=== PATIENT | male | born 1940 | race Caucasian/White ===

== ENCOUNTER 2017-10-28 08:13 | Observation (INO) | payer MEDICARE, BC ==
[2017-10-28] MEDS ORDERED: HYDROmorphone 0.5 MG/0.5 ML SYRINGE IVPUSH ONE (08:42)
[2017-10-28] MEDS ORDERED: Ketorolac 15 MG/ML SDV IVPUSH ONE (08:42)
[2017-10-28] MEDS ORDERED: Sodium Chloride 0.9% 10 ML Syringe FLUSH PRN (08:42)
[2017-10-28] MEDS ORDERED: Cyclobenzaprine 10 MG Tab PO ONE (08:42)
--- NOTE | 2017-10-28 09:04 | EDM.PDOC ---
ED HPI GENERAL MEDICAL PROBLEM - General Chief Complaint: Back Pain or Injury Stated Complaint: BACK PAIN Time Seen by Provider: 10/28/17 08:20 Source of Information: Reports: Patient, Family History Limitations: Reports: No Limitations - History of Present Illness INITIAL COMMENTS - FREE TEXT/NARRATIVE: The patient presents with right sided low back pain. The patient has a history of low back pain, but for the past 1 to 2 weeks that pain has gotten worse. He has had 2 surgeries on his back and a recent ablation of the nerve. He did not hurt himself recently such as fall, lift something or twisting. He has no fever , chills, cough, chest pain, shortness of breath, abdominal pain, nausea or vomiting. He has no numbness or weakness. He is better laying down but when he stands up it hurts. The pain will go down his right leg at times. Onset: Gradual Duration: Week(s): (Years but worse the past couple of weeks) Location: Reports: Back Quality: Reports: Sharp Severity: Severe Improves with: Reports: Immobilization (and laying down) Worsens with: Reports: Movement (and standing) Associated Symptoms: Reports: No Other Symptoms Lower Back Pain Score (Numeric/FACES): 9 - Related Data Allergies Allergy/AdvReac Type Severity Reaction Status Date / Time No Known Allergies Allergy Verified 12/15/13 12:11 Home Meds: Home Meds Carbidopa/Levodopa [Carbidopa-Levo ER 50-200] 1 tab PO BEDTIME 10/28/17 [History ] Carbidopa/Levodopa [Carbidopa-Levodopa 25-250] 1 tab PO TID 10/28/17 [History] Hydrocodone/Acetaminophen [Hydrocodon-Acetaminophen 5-325] 1 - 2 tab PO Q8H PRN 10/28/17 [History] RX: Amantadine [Symmetrel] 100 mg PO BID 10/28/17 [History] RX: Lisinopril 2.5 mg PO DAILY 10/28/17 [History] RX: carBAMazepine [Carbamazepine ER] 100 mg PO BID 10/28/17 [History] RX: traMADol [Ultram] 50 mg PO Q6H PRN 10/28/17 [History] Rotigotine [Neupro .33 MG/Hr] 1 patch TOP DAILY 10/28/17 [History] carBAMazepine [Carbamazepine ER] 400 mg PO BID 10/28/17 [History] metFORMIN HCl [Metformin HCl] 1,000 mg PO BID 10/28/17 [History] Past Medical History HEENT History: Reports: Impaired Vision Other Genitourinary History: Right kidney mass that has been treated in past Musculoskeletal History: Reports: Other (See Below) Other Musculoskeletal History: 2 back surgeries Neurological History: Reports: Parkinson's Endocrine/Metabolic History: Reports: Diabetes, Type II 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 - Past Surgical History HEENT Surgical History: Reports: Cataract Surgery, Tonsillectomy GI Surgical History: Reports: Appendectomy Neurological Surgical History: Reports: Laminectomy Other Neurological Surgeries/Procedures: Ablation of nerves in back Social & Family History - Tobacco Use Smoking Status *Q: Former Smoker Used Tobacco, but Quit: Yes Month/Year Tobacco Last Used: quit 30 years ago - Caffeine Use Caffeine Use: Reports: Coffee - Recreational Drug Use Recreational Drug Use: No ED ROS GENERAL - Review of Systems Review Of Systems: See Below Constitutional: Reports: No Symptoms HEENT: Reports: No Symptoms Respiratory: Reports: No Symptoms Cardiovascular: Reports: No Symptoms Endocrine: Reports: No Symptoms GI/Abdominal: Reports: No Symptoms : Reports: No Symptoms Musculoskeletal: Reports: Back Pain ED EXAM,LOWER BACK PAIN/INJURY - Physical Exam Exam: See Below Exam Limited By: No Limitations General Appearance: Alert, No Apparent Distress Ears: Normal External Exam Nose: Normal Inspection Head: Atraumatic, Normocephalic Neck: Normal Inspection Respiratory/Chest: No Respiratory Distress, Lungs Clear, Normal Breath Sounds Cardiovascular: Regular Rate, Rhythm, No Edema, No Murmur GI/Abdominal: Soft, Non-Tender, No Organomegaly, No Mass Back Exam: Other (Mild pain upon palpation to the right lower back) Extremities: Normal Inspection Neurological: Alert, No Motor/Sensory Deficits, Oriented x 3 Course - Vital Signs Last Recorded V/S: Last Vital Signs Temp 97.4 F 10/28/17 08:26 Pulse 75 10/28/17 08:26 Resp 14 10/28/17 08:26 BP 157/69 H 10/28/17 08:26 Pulse Ox 99 10/28/17 08:26 - Orders/Labs/Meds Orders: Active Orders 24 hr Category Date Time Status Patient Status [ADT] Routine ADT 10/28/17 12:38 Active Peripheral IV Care [RC] . DIRECTED Care 10/28/17 08:42 Active Sodium Chloride 0.9% [Saline Flush] Med 10/28/17 08:42 Active 10 ml FLUSH ASDIRECTED PRN Peripheral IV Insertion Adult [OM.PC] Routine Oth 10/28/17 08:42 Ordered Medication Orders Sodium Chloride (Saline Flush) 10 ml FLUSH ASDIRECTED PRN PRN Reason: Keep Vein Open Last Admin: 10/28/17 11:22 Dose: 10 ml Labs: Laboratory Tests 10/28/17 10/28/17 10/28/17 Range/Units 09:00 09:21 09:26 WBC 4.43 (4.23-9.07) K/mm3 RBC 3.68 L (4.63-6.08) M/mm3 Hgb 12.2 L (13.7-17.5) gm/L Hct 37.2 L (40.1-51.0) % MCV 101.1 H (79.0-92.2) fl MCH 33.2 H (25.7-32.2) pg MCHC 32.8 (32.2-35.5) g/dl RDW Std Deviation 46.5 H (35.1-43.9) fL Plt Count 133 L (163-337) K/mm3 MPV 10.7 (9.4-12.3) fl Neut % (Auto) 68.8 H (34.0-67.9) % Lymph % (Auto) 19.0 L (21.8-53.1) % [place] % (Auto) 7.0 (5.3-12.2) % Eos % (Auto) 4.3 (0.8-7.0) Baso % (Auto) 0.2 (0.1-1.2) % Neut # (Auto) 3.05 (1.78-5.38) K/mm3 Lymph # (Auto) 0.84 L (1.32-3.57) K/mm3 [place] # (Auto) 0.31 (0.30-0.82) K/mm3 Eos # (Auto) 0.19 (0.04-0.54) K/mm3 Baso # (Auto) 0.01 (0.01-0.08) K/mm3 ESR 16 H (0-15) mm/hr Sodium 137 (136-145) mEq/L Potassium 4.2 (3.5-5.1) mEq/L Chloride 103 (98-107) mEq/L Carbon Dioxide 24 (21-32) mEq/L Anion Gap 14.2 (5-15) BUN 24 H (7-18) mg/dL Creatinine 1.4 H (0.7-1.3) mg/dL Est Cr Clr Drug Dosing 48.56 mL/min Estimated GFR (MDRD) 49 (>60) mL/min BUN/Creatinine Ratio 17.1 (14-18) Glucose 159 H (83-115) mg/dL Calcium 8.4 L (8.5-10.1) mg/dL Total Bilirubin 0.3 (0.2-1.0) mg/dL AST 14 L (15-37) U/L ALT 10 L (16-63) U/L Alkaline Phosphatase 84 (46-116) U/L C-Reactive Protein < 0.2 (<1.0) mg/dL Total Protein 6.4 (6.4-8.2) g/dl Albumin 3.4 (3.4-5.0) g/dl Globulin 3.0 gm/dL Albumin/Globulin Ratio 1.1 (1-2) Meds: Medications Generic Name Dose Route Start Last Admin Trade Name Freq PRN Reason Stop Dose Admin Sodium Chloride 10 ml 10/28/17 08:42 10/28/17 11:22 Saline Flush FLUSH 10 ml ASDIRECTED PRN Administration Keep Vein Open Discontinued Medications Generic Name Dose Route Start Last Admin Trade Name Fresridhar PRN Reason Stop Dose Admin Cyclobenzaprine HCl 10 mg 10/28/17 08:42 10/28/17 09:10 Flexeril PO 10/28/17 08:43 10 mg ONETIME ONE Administration Fentanyl 50 mcg 10/28/17 11:15 10/28/17 11:30 Sublimaze IVPUSH 10/28/17 11:16 50 mcg ONETIME ONE Administration Hydromorphone HCl 0.5 mg 10/28/17 08:42 10/28/17 09:05 Dilaudid IVPUSH 10/28/17 08:43 0.5 mg ONETIME ONE Administration Ketorolac Tromethamine 15 mg 10/28/17 08:42 10/28/17 09:07 Toradol IVPUSH 04/30/18 08:43 15 mg ONETIME ONE Administration - Re-Assessments/Exams Free Text/Narrative Re-Assessment/Exam: 10/28/17 09:03 I ordered an IV saline lock, toradol 15mg IV, dilaudid 0.5mg IV, flexeril 10mg by mouth, and labs. 10/28/17 12:56 His CBC looks good. His creatinine is elevated at 1.4. His glucose is elevated at 159. His calcium is elevated at 8.4. His CRP is normal. He still has pain so I ordered fentanyl 100mcg IV. He still has pain laying in bed but that is better. My nurse got him up to walk and he still had severe pain. I do not feel I can send him home like this. I called Dr Quesada and he agreed to the admission but it will be an observation admission. Departure - Departure Time of Disposition: 13:00 Disposition: Refer to Observation Condition: Fair Clinical Impression: Acute exacerbation of chronic low back pain - Discharge Information Referrals: Waqas Bolton MD [Primary Care Provider] - Forms: ED Department Discharge - My Orders Last 24 Hours: My Active Orders 10/28/17 08:42 Peripheral IV Care [RC] . DIRECTED Sodium Chloride 0.9% [Saline Flush] 10 ml FLUSH ASDIRECTED PRN Peripheral IV Insertion Adult [OM.PC] Routine 10/28/17 12:38 Patient Status [ADT] Routine - Assessment/Plan Last 24 Hours: My Active Orders 10/28/17 08:42 Peripheral IV Care [RC] . DIRECTED Sodium Chloride 0.9% [Saline Flush] 10 ml FLUSH ASDIRECTED PRN Peripheral IV Insertion Adult [OM.PC] Routine 10/28/17 12:38 Patient Status [ADT] Routine
[2017-10-28] MEDS ORDERED: fentaNYL 100 MCG/2 ML SDV IVPUSH ONE (11:15)
--- NOTE | 2017-10-28 13:19 | PCM.HP ---
H&P History of Present Illness - General Date of Service: 10/28/17 Admit Problem/Dx: Admission Diagnosis/Problem Admission Diagnosis/Problem Low back pain Source of Information: Patient, Old Records, Provider, RN, RN Notes Reviewed, Significant Other History Limitations: Reports: No Limitations - History of Present Illness Initial Comments - Free Text/Narative: Artur Mccormack is a 76 yo male who presents to our ED today (10/28/17) with right- sided lower back pain which has been getting worse over the past 1-2 weeks. He does have a history of chronic lower back pain. He's had 2 surgeries on his back and recent ablation of the nerve. Denies any recent falls or injury while lifting, twisting, etc. Recent fever, chills, cough, chest pain, shortness of breath, abdominal pain, nausea, vomiting. Denies any numbness, tingling, or weakness. Pain is improved with lying down but worsens when he stands up. The patient will occasionally radiate down his right leg. In the ED temp was 97.4. Pulse 75. Respirations 14. Blood pressure 157/69. Pulse ox 99%. Labs were obtained: 30 mL normal at 4.43. Hemoglobin low at 12.2. Hematocrit low at 37.2. He is macrocytic. Pulses are low 133,000. Neutrophils are very slightly elevated at 68.8%. ESR is slightly elevated at 16. Sodiums on the low side of good at 137. Potassium 4.2. Chloride 103. Carbon dioxide 24. Anion gap is 14.2. BUN is 24. Creatinine 1.4. EGFR is 49. Glucose is high at 159. Calcium slightly low at 8.4. Total bilirubin 0.3. AST is 14, ALT 10, alk phosphatase 84. CRP is less than 0.2. Total protein 6.4. Albumin 3.4. He is given Flexeril, fentanyl, Dilaudid, and Toradol for pain. Nursing attempted ambulation in the ED and patient still had severe pain. The decision was made to admit the patient. 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 He is a former smoker. He subsequently admitted to the medical floor under observation status. He is a full code. His PCP is Dr. Bolton at [facility]. Lower Back Pain Score (Numeric/FACES): 5 - Related Data Allergies/Adverse Reactions: Allergies Allergy/AdvReac Type Severity Reaction Status Date / Time No Known Allergies Allergy Verified 10/28/17 14:12 Home Medications: Home Meds Amantadine [Symmetrel] 100 mg PO BID 10/28/17 [History] Carbidopa/Levodopa [Carbidopa-Levo ER 50-200] 1 tab PO BEDTIME 10/28/17 [History ] Carbidopa/Levodopa [Carbidopa-Levodopa 25-250] 1 tab PO TID 10/28/17 [History] Hydrocodone/Acetaminophen [Hydrocodon-Acetaminophen 5-325] 1 - 2 tab PO Q8H PRN 10/28/17 [History] Lisinopril 2.5 mg PO DAILY 10/28/17 [History] Rotigotine [Neupro .33 MG/Hr] 1 patch TOP DAILY 10/28/17 [History] carBAMazepine [Carbamazepine ER] 100 mg PO BID 10/28/17 [History] carBAMazepine [Carbamazepine ER] 400 mg PO BID 10/28/17 [History] metFORMIN HCl [Metformin HCl] 1,000 mg PO BID 10/28/17 [History] traMADol [Ultram] 50 mg PO Q6H PRN 10/28/17 [History] Past Medical History HEENT History: Reports: Impaired Vision Other Genitourinary History: Right kidney mass that has been treated in past Musculoskeletal History: Reports: Other (See Below) Other Musculoskeletal History: 2 back surgeries Neurological History: Reports: Parkinson's Endocrine/Metabolic History: Reports: Diabetes, Type II 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 Denies: Fever, Chills, Malaise, Weakness, Fatigue HEENT: Reports: No Symptoms. Denies: Ear Pain, Eye Pain, Headaches, Sore Throat Pulmonary: Reports: No Symptoms. Denies: Shortness of Breath, Wheezing, Pleuritic Chest Pain, Cough, Sputum Cardiovascular: Reports: No Symptoms. Denies: Chest Pain, Palpitations, Dyspnea on Exertion, Edema, Syncope Gastrointestinal: Reports: No Symptoms. Denies: Abdominal Pain, Constipation, Diarrhea, Nausea, Vomiting Genitourinary: Reports: No Symptoms. Denies: Dysuria, Frequency, Burning, Pain , Urgency Musculoskeletal: Reports: Back Pain (chronic ), Other (pain in right buttocks ) . Denies: Neck Pain, Shoulder Pain, Arm Pain, Hand Pain, Leg Pain, Foot Pain, Joint Pain, Joint Swelling, Muscle Stiffness Skin: Reports: No Symptoms Psychiatric: Reports: No Symptoms Neurological: Reports: No Symptoms Hematologic/Lymphatic: Reports: No Symptoms Immunologic: Reports: No Symptoms Exam - Exam Exam: See Below - Vital Signs Vital Signs: Last Vital Signs Temp 97.4 F 10/28/17 08:26 Pulse 75 10/28/17 08:26 Resp 14 10/28/17 08:26 BP 157/69 H 10/28/17 08:26 Pulse Ox 99 10/28/17 08:26 Weight: 190 lb - Exam General: Alert, Oriented, Cooperative. No: Mild Distress HEENT: PERRLA, Hearing Intact, Mucosa Moist & [place], Nares Patent, Normal Nasal Septum, Posterior Pharynx Clear, Conjunctiva Clear, EOMI, EACs Clear, TMs Clear Neck: Supple, Trachea Midline. No: JVD Lungs: Clear to Auscultation, Normal Respiratory Effort Cardiovascular: Regular Rate, Regular Rhythm GI/Abdominal Exam: Normal Bowel Sounds, Soft, Non-Tender, No Organomegaly, No Distention, No Abnormal Bruit, No Mass, Pelvis Stable (Male) Exam: Deferred Rectal (Males) Exam: Deferred Back Exam: Normal Inspection, Decreased Range of Motion, Paraspinal Tenderness ( right lower back ). No: Vertebral Tenderness Extremities: Normal Inspection, Normal Range of Motion, Non-Tender, No Pedal Edema, Normal Capillary Refill Peripheral Pulses: 2+: Radial (L), Radial (R), Posterior Tibial (L), Posterior Tibial (R), Dorsalis Pedis (L), Dorsalis Pedis (R) Skin: Warm, Dry, Intact Neurological: Cranial Nerves Intact (grossly ), Strength Equal Bilateral, Normal Speech, Normal Tone, Sensation Intact, Abnormal Gait. No: Focal Deficit Neuro Extensive - Mental Status: Alert, Oriented x3, Normal Mood/Affect, Normal Cognition, Memory Intact Psychiatric: Alert, Normal Affect, Normal Mood - Patient Data Lab Results Last 24 hrs: Laboratory Results - last 24 hr 10/28/17 10/28/17 10/28/17 Range/Units 09:00 09:21 09:26 WBC 4.43 (4.23-9.07) K/mm3 RBC 3.68 L (4.63-6.08) M/mm3 Hgb 12.2 L (13.7-17.5) gm/L Hct 37.2 L (40.1-51.0) % MCV 101.1 H (79.0-92.2) fl MCH 33.2 H (25.7-32.2) pg MCHC 32.8 (32.2-35.5) g/dl RDW Std Deviation 46.5 H (35.1-43.9) fL Plt Count 133 L (163-337) K/mm3 MPV 10.7 (9.4-12.3) fl Neut % (Auto) 68.8 H (34.0-67.9) % Lymph % (Auto) 19.0 L (21.8-53.1) % [place] % (Auto) 7.0 (5.3-12.2) % Eos % (Auto) 4.3 (0.8-7.0) Baso % (Auto) 0.2 (0.1-1.2) % Neut # (Auto) 3.05 (1.78-5.38) K/mm3 Lymph # (Auto) 0.84 L (1.32-3.57) K/mm3 [place] # (Auto) 0.31 (0.30-0.82) K/mm3 Eos # (Auto) 0.19 (0.04-0.54) K/mm3 Baso # (Auto) 0.01 (0.01-0.08) K/mm3 ESR 16 H (0-15) mm/hr Sodium 137 (136-145) mEq/L Potassium 4.2 (3.5-5.1) mEq/L Chloride 103 (98-107) mEq/L Carbon Dioxide 24 (21-32) mEq/L Anion Gap 14.2 (5-15) BUN 24 H (7-18) mg/dL Creatinine 1.4 H (0.7-1.3) mg/dL Est Cr Clr Drug Dosing 48.56 mL/min Estimated GFR (MDRD) 49 (>60) mL/min BUN/Creatinine Ratio 17.1 (14-18) Glucose 159 H (83-115) mg/dL Calcium 8.4 L (8.5-10.1) mg/dL Total Bilirubin 0.3 (0.2-1.0) mg/dL AST 14 L (15-37) U/L ALT 10 L (16-63) U/L Alkaline Phosphatase 84 (46-116) U/L C-Reactive Protein < 0.2 (<1.0) mg/dL Total Protein 6.4 (6.4-8.2) g/dl Albumin 3.4 (3.4-5.0) g/dl Globulin 3.0 gm/dL Albumin/Globulin Ratio 1.1 (1-2) Result Diagrams: 10/28/17 09:00 10/28/17 09:26 - Problem List (1) Acute exacerbation of chronic low back pain SNOMED Code(s): 986691581 ICD Code: M54.5 - LOW BACK PAIN; G89.29 - OTHER CHRONIC PAIN Status: Acute Priority: High Current Visit: Yes (2) Type II diabetes mellitus SNOMED Code(s): 31727276 ICD Code: E11.9 - TYPE 2 DIABETES MELLITUS WITHOUT COMPLICATIONS Status: Chronic Priority: Medium Current Visit: Yes Qualifiers: Diabetes mellitus oysterman insulin use: without senior care use Diabetes mellitus complication status: with unspecified complications Qualified Code(s) : E11.8 - Type 2 diabetes mellitus with unspecified complications (3) History of back surgery SNOMED Code(s): 217511210 ICD Code: Z98.890 - OTHER SPECIFIED POSTPROCEDURAL STATES Status: Chronic Priority: Medium Current Visit: No (4) History of laminectomy SNOMED Code(s): 941016868, 746737290 ICD Code: Z98.890 - OTHER SPECIFIED POSTPROCEDURAL STATES Status: Chronic Priority: Medium Current Visit: No (5) Parkinson disease SNOMED Code(s): 22170754 ICD Code: G20 - PARKINSON'S DISEASE Status: Chronic Priority: Medium Current Visit: Yes (6) History of squamous cell carcinoma SNOMED Code(s): 59330604498626 ICD Code: Z85.89 - PERSONAL HISTORY OF MALIGNANT NEOPLASM OF ORGANS AND SYSTEMS Status: Chronic Priority: Medium Current Visit: No (7) Acute kidney injury SNOMED Code(s): 76946632 ICD Code: N17.9 - ACUTE KIDNEY FAILURE, UNSPECIFIED Status: Acute Priority: High Current Visit: Yes Problem List Initiated/Reviewed/Updated: Yes Orders Last 24hrs: Active Orders 24 hr Category Date Time Status Patient Status [ADT] Routine ADT 10/28/17 12:38 Active Peripheral IV Care [RC] . DIRECTED Care 10/28/17 08:42 Active Sodium Chloride 0.9% [Saline Flush] Med 10/28/17 08:42 Active 10 ml FLUSH ASDIRECTED PRN Peripheral IV Insertion Adult [OM.PC] Routine Oth 10/28/17 08:42 Ordered Medication Orders Sodium Chloride (Saline Flush) 10 ml FLUSH ASDIRECTED PRN PRN Reason: Keep Vein Open Last Admin: 10/28/17 11:22 Dose: 10 ml Assessment/Plan Comment:: I/P: Acute: Back pain -Acute on chronic -Reports location in right buttocks, constant and sharp; does not radiate -History of 2 back surgeries, nerve ablation in back, laminectomy -Worse when walking/standing - worried he may fall -Denies any numbness/tingling or extremity weakness -No incontinence of urine or bowel -No neurological deficit, equal strength bilaterally, no pain with plantar flexion or extension -CRP <0.2, ESR 16 -Pain medications as ordered -PT/OT -Consider lumbar MRI Acute kidney injury -BUN 24, Creatinine 1.4, eGFR 49 -Baseline from prior charts is WNL -Was given Toradol in ED -IV fluids as ordered -Avoid nephrotoxic medications -Monitor Chronic: Impaired vision Hx/o right kidney mass which was treated Parkinson's disease - continue home meds Type II DM 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 Bolton
[2017-10-28] MEDS ORDERED: Pneumococcal Polyvalent-23 Vaccine 0.5 ML SDV IM ONE (15:00)
[2017-10-28] MEDS ORDERED: Polyethylene Glycol 3350 Powder 17 GM Packet PO PRN (15:32)
[2017-10-28] MEDS ORDERED: Docusate Sodium 100 MG Cap PO PRN (15:32)
[2017-10-28] MEDS ORDERED: Bisacodyl 5 MG Tab PO PRN (15:32)
[2017-10-28] MEDS ORDERED: Ondansetron 4 MG Tab.DIS PO PRN (15:32)
[2017-10-28] MEDS ORDERED: HYDROmorphone 0.5 MG/0.5 ML SYRINGE IVPUSH PRN (15:32)
[2017-10-28] MEDS ORDERED: Ondansetron 4 MG/2 ML SDV IV PRN (15:32)
[2017-10-28] MEDS ORDERED: Acetaminophen 325 MG Tab PO PRN (15:32)
[2017-10-28] MEDS ORDERED: Albuterol/Ipratropium 3.0-0.5 MG/3 ML Neb Soln NEB PRN (15:32)
[2017-10-28] MEDS ORDERED: hydrALAZINE 20 MG/ML SDV IVPUSH PRN (15:37)
[2017-10-28] MEDS ORDERED: Metoprolol Tartrate 5 MG/5 ML SDV IVPUSH PRN (15:37)
[2017-10-28] MEDS ORDERED: Sodium Chloride 0.9% 1,000 ML IV SCH (15:45)
[2017-10-28] MEDS ORDERED: 50% Dextrose in Water 50 ML Syringe IVPUSH PRN (16:10)
[2017-10-28] MEDS: Acetaminophen/oxyCODONE 325-5 MG Tab PO PRN ×2 (16:48→22:56)
[2017-10-28] MEDS: Insulin Aspart 100 Units/ML 3 ML Pen SUBCUT SCH ×2 (18:37→22:06)
[2017-10-28] MEDS: CARBAMAZEPINE 100 MG PO SCH (18:42)
[2017-10-28] MEDS: AMANTADINE 100 MG PO SCH (18:42)
[2017-10-28] MEDS: CARBAMAZEPINE 400 MG PO SCH (18:43)
[2017-10-28] MEDS: CARBIDOPA PO SCH (18:44)
[2017-10-28] MEDS: [UNRECOGNIZED DRUG - OTHER] PO SCH (18:44)
[2017-10-28] MEDS: METFORMIN 1000 MG PO SCH (18:45)
[2017-10-28] MEDS ORDERED: traMADol 50 MG Tab PO PRN (19:00)
[2017-10-28] MEDS ORDERED: [UNRECOGNIZED DRUG - OTHER] PO SCH (21:00)
[2017-10-28] MEDS ORDERED: CARBIDOPA PO SCH (21:00)
[2017-10-29] MEDS: Acetaminophen/oxyCODONE 325-5 MG Tab PO PRN (05:48)
[2017-10-29] MEDS: Insulin Aspart 100 Units/ML 3 ML Pen SUBCUT SCH ×2 (06:30→12:19)
[2017-10-29] MEDS ORDERED: Magnesium Oxide 400 MG Tab PO ONE (09:00)
[2017-10-29] MEDS ORDERED: Non-Formulary Medication 1 Each (Lisinopril [Lisinopril] 2.5 MG) PO SCH (09:00)
[2017-10-29] MEDS ORDERED: ROTIGOTINE TOP SCH (09:00)
--- NOTE | 2017-10-29 09:17 | MR ---
Addendum: Not mentioned on original report is a mass within the upper right kidney is partially seen. This is identified on prior CT abdomen and pelvis exam of 02/21/15. This mass appears to have increased in size by about 1 cm. --- Addendum1 above dictated on [10/29/2017 09:49] by [Barrett Whitman Hilton J.] --- --- Addendum1 above signed on [10/29/2017 10:15] by [Barrett Whitman Hilton J.] --- --- Original report below dictated on [10/29/2017 09:08] by [Barrett Whitman Hilton J.] --- --- Original report below signed on [10/29/2017 09:14] by [Barrett Whitman Hilton J.] --- MRI lumbar spine Technique: T1-weighted axial images were obtained from above the L1-L2 disc through the L5-S1 disc. T2-weighted axial images were obtained from above the L2-L3 disc inferiorly through the L5-S1 disc. T1, T2 and fat suppressed inversion recovery sagittal images were obtained. Comparison: Previous lumbar spine exam of 05/05/15. Findings: T12-L1: Slight posterior disc bulging is seen. Small Schmorl's node deformity is seen. No central canal stenosis or neural foraminal stenosis is seen. L1-L2: Slight circumferential disc bulge is seen. Posterior disc maintains a concave margin. Minimal degenerative apophyseal change is seen. No central canal stenosis is seen. Neural foramina are patent where the nerve roots exit. L2-L3: Circumferential disc bulge is seen. Moderate degenerative apophyseal change is seen with thickening of the ligamentum flavum. Findings cause moderate to severe central canal stenosis. This is slightly more prominent than on previous exam. Disc bulging is seen into both inferior neural foramina with disc bulging appearing to touch the left nerve root outside the neural foramina. This finding is fairly stable from previous exam. L3-L4: Circumferential disc bulge is seen. Mild degenerative apophyseal change is noted. Previous mini-laminectomy is noted on the left side. Mild to moderate central canal stenosis is seen. This is slightly more prominent than on previous exam. Neural foramina are felt to be patent where the nerve roots exit. L4-L5: Posterior laminectomy is noted. Slight circumferential disc bulge is seen. No central canal stenosis is noted. Neural foramina are patent where the nerve roots exit. L5-S1: Very slight diffuse posterior disc bulge is seen. Minimal central canal stenosis is noted. Neural foramina are patent where the nerve roots exit. Diffuse degenerative dehydration change noted within the discs. Conus medullaris and cauda equina show no abnormal signal or mass. Impression: 1. Diffuse degenerative change. Most prominent findings are central canal stenosis at L2-L3, L3-L4 and L5-S1. Central canal stenosis has slightly progressed from previous exam. 2. Less prominent degenerative change as noted above which appears to be fairly stable. Diagnostic code #3 --- Addendum1 signed ---
[2017-10-29] MEDS: CARBAMAZEPINE 100 MG PO SCH (09:38)
[2017-10-29] MEDS: CARBIDOPA PO SCH ×2 (09:38→12:31)
[2017-10-29] MEDS: AMANTADINE 100 MG PO SCH (09:38)
[2017-10-29] MEDS: [UNRECOGNIZED DRUG - OTHER] PO SCH ×2 (09:38→12:31)
[2017-10-29] MEDS: METFORMIN 1000 MG PO SCH (09:40)
[2017-10-29] MEDS: CARBAMAZEPINE 400 MG PO SCH (09:40)
--- NOTE | 2017-10-29 12:33 | PCM.DCSUM1 ---
Discharge Summary - Hospital Course HPI Initial Comments: Artur Mccormack is a 76 yo male who presents to our ED today (10/28/17) with right- sided lower back pain which has been getting worse over the past 1-2 weeks. He does have a history of chronic lower back pain. He's had 2 surgeries on his back and recent ablation of the nerve. Denies any recent falls or injury while lifting, twisting, etc. Recent fever, chills, cough, chest pain, shortness of breath, abdominal pain, nausea, vomiting. Denies any numbness, tingling, or weakness. Pain is improved with lying down but worsens when he stands up. The patient will occasionally radiate down his right leg. In the ED temp was 97.4. Pulse 75. Respirations 14. Blood pressure 157/69. Pulse ox 99%. Labs were obtained: 30 mL normal at 4.43. Hemoglobin low at 12.2. Hematocrit low at 37.2. He is macrocytic. Pulses are low 133,000. Neutrophils are very slightly elevated at 68.8%. ESR is slightly elevated at 16. Sodiums on the low side of good at 137. Potassium 4.2. Chloride 103. Carbon dioxide 24. Anion gap is 14.2. BUN is 24. Creatinine 1.4. EGFR is 49. Glucose is high at 159. Calcium slightly low at 8.4. Total bilirubin 0.3. AST is 14, ALT 10, alk phosphatase 84. CRP is less than 0.2. Total protein 6.4. Albumin 3.4. He is given Flexeril, fentanyl, Dilaudid, and Toradol for pain. Nursing attempted ambulation in the ED and patient still had severe pain. The decision was made to admit the patient. 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 He is a former smoker. He subsequently admitted to the medical floor under observation status. He is a full code. His PCP is Dr. Bolton at [facility]. - Discharge Data Discharge Date: 10/29/17 (Admit: 10/28/17) Discharge Disposition: Home, Self-Care 01 Condition: Good - Discharge Diagnosis/Problem(s) (1) Acute exacerbation of chronic low back pain SNOMED Code(s): 639805653 ICD Code: M54.5 - LOW BACK PAIN; G89.29 - OTHER CHRONIC PAIN Status: Acute Priority: High Current Visit: Yes (2) Type II diabetes mellitus SNOMED Code(s): 65409114 ICD Code: E11.9 - TYPE 2 DIABETES MELLITUS WITHOUT COMPLICATIONS Status: Chronic Priority: Medium Current Visit: Yes Qualifiers: Diabetes mellitus [facility] insulin use: without moth exterminator use Diabetes mellitus complication status: with unspecified complications Qualified Code(s) : E11.8 - Type 2 diabetes mellitus with unspecified complications (3) History of back surgery SNOMED Code(s): 286695955 ICD Code: Z98.890 - OTHER SPECIFIED POSTPROCEDURAL STATES Status: Chronic Priority: Medium Current Visit: No (4) History of laminectomy SNOMED Code(s): 095303218, 168395024 ICD Code: Z98.890 - OTHER SPECIFIED POSTPROCEDURAL STATES Status: Chronic Priority: Medium Current Visit: No (5) Parkinson disease SNOMED Code(s): 09771647 ICD Code: G20 - PARKINSON'S DISEASE Status: Chronic Priority: Medium Current Visit: Yes (6) History of squamous cell carcinoma SNOMED Code(s): 81958942760928 ICD Code: Z85.89 - PERSONAL HISTORY OF MALIGNANT NEOPLASM OF ORGANS AND SYSTEMS Status: Chronic Priority: Medium Current Visit: No (7) Acute kidney injury SNOMED Code(s): 97504470 ICD Code: N17.9 - ACUTE KIDNEY FAILURE, UNSPECIFIED Status: Acute Priority: High Current Visit: Yes (8) Kidney lesion, [place], right SNOMED Code(s): 59426444 ICD Code: N28.9 - DISORDER OF KIDNEY AND URETER, UNSPECIFIED Status: Acute Priority: Medium Current Visit: Yes - Patient Summary/Data Consults: Consultations 10/28/17 15:32 OT Evaluation and Treatment [CONS] Routine PT Evaluation and Treatment [CONS] Routine Labs Pending at D/C: None Recommended Follow-up Testing/Procedures: Recommend follow-up with PCP in 7-10 days, sooner if needed Recommend follow-up with urology at next available appointment due to increasing kidney lesion. We discussed Dr. Su and this is an excellent option as you have seen him in the past. Recommend follow-up with neurosurgery after discharge. We discussed Dr. Patel as you have seen him in the past and this is also an excellent option, Hospital Course: I/P: Acute: Back pain, improved -Acute on chronic -Reports location in right buttocks, constant and sharp; does not radiate -History of 2 back surgeries, nerve ablation in back, laminectomy -Worse when walking/standing - worried he may fall -Denies any numbness/tingling or extremity weakness -No incontinence of urine or bowel -No neurological deficit, equal strength bilaterally, no pain with plantar flexion or extension -CRP <0.2, ESR 16 -Pain medications as ordered -PT/OT -Lumbar MRI -Diffuse degenerative change. Most prominent findings are central canal stenosis at L2-L3, L3-L4, and L5-S1 -Central canal stenosis has slightly progressed from previous exam -Less prominent degenerative change as noted above which appears to be fairly stable -Right upper kidney mass - appears to increased in size by about 1cm from prior CT on 02/21/18 Acute kidney injury -BUN 24, Creatinine 1.4, eGFR 49 -Baseline from prior charts is WNL -Was given Toradol in ED -IV fluids as ordered -Avoid nephrotoxic medications -Encourage oral hydration -Monitor Incidental right kidney lesion -Identified on prior CT scan from 02/21/15 -Appears to have increased in size around 1cm -Recommend follow-up with urology - reports prior cryoablation of area. 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 Bolton Overall Artur improved while in our care. He weaned down his pain medications rapidly and will be discharged home on his usual dose of tramadol. Patients reports he is low on this so will give prescription to get him by until he sees his PCP. He has been working with PT/OT and they are recommending home PT/ OT. was not very receptive to this but was given information and order so they can follow-up if they decide it becomes necessary. His creatinine was slightly elevated. We gave 1L of fluid and encouraged oral hydration, which his reports is a problematic area as he could use more fluid intake at home. An MRI was obtained with results as above. See full report for all the details. A mass on his right kidney was noted to be 1cm larger than on prior CT from 02/21. Patients reports this was froze in [place] by Dr. Su. Recommend follow-up with this. reports Artur was to have a CT scan in the near future to re-check this lesion and she will get in contact with them about MRI results. Also recommending follow-up with Dr. Greene as he has had prior back surgery with him. He was instructed to follow-up with PCP within 7-10 days after discharge, sooner if need. He was also instructed not to drive or operate heavy machinery while on opioid medications. - Patient Instructions Diet: Diabetic Diet Activity: As Tolerated Driving: Do Not Drive Showering/Bathing: May Shower Notify Provider of: Fever, Increased Pain, Nausea and/or Vomiting - Discharge Plan Prescriptions/Med Rec: traMADol [Ultram] 50 mg PO Q6H PRN #20 tablet PRN Reason: Pain Home Medications: Home Meds Amantadine [Symmetrel] 100 mg PO BID 10/28/17 [History] Carbidopa/Levodopa [Carbidopa-Levo ER 50-200] 1 tab PO BEDTIME 10/28/17 [History ] Carbidopa/Levodopa [Carbidopa-Levodopa 25-250] 1 tab PO TID 10/28/17 [History] Hydrocodone/Acetaminophen [Hydrocodon-Acetaminophen 5-325] 1 - 2 tab PO Q8H PRN 10/28/17 [History] Lisinopril 2.5 mg PO DAILY 10/28/17 [History] Rotigotine [Neupro .33 MG/Hr] 1 patch TOP DAILY 10/28/17 [History] carBAMazepine [Carbamazepine ER] 100 mg PO BID 10/28/17 [History] carBAMazepine [Carbamazepine ER] 400 mg PO BID 10/28/17 [History] metFORMIN HCl [Metformin HCl] 1,000 mg PO BID 10/28/17 [History] traMADol [Ultram] 50 mg PO Q6H PRN #20 tablet 10/29/17 [Rx] Patient Handouts: Chronic Pain, Adult, What You Need to Know About Prescription Opioid Pain Medicine Referrals: Waqas Bolton MD [Primary Care Provider] - - Discharge Summary/Plan Comment DC Time >30 min.: Yes (45 mins ) - General Info Admission Dx/Problem (Free Text: Admission Diagnosis/Problem Admission Diagnosis/Problem Low back pain Subjective Update: In to see Artur. He is sitting on the edge of bed. He looks better and is not in too much pain. He reports improvement. He has been working with PT/OT. He would like to go home. His agrees. Functional Status: Reports: Pain Controlled, Tolerating Diet, Ambulating, Urinating. Denies: New Symptoms - Review of Systems General: Reports: No Symptoms. Denies: Fever, Weakness, Fatigue, Malaise HEENT: Reports: No Symptoms Pulmonary: Reports: No Symptoms. Denies: Shortness of Breath, Cough, Wheezing Cardiovascular: Reports: No Symptoms. Denies: Chest Pain, Palpitations, Lightheadedness Gastrointestinal: Reports: No Symptoms. Denies: Abdominal Pain, Constipation, Diarrhea, Nausea, Vomiting Genitourinary: Reports: No Symptoms Musculoskeletal: Reports: Back Pain (improved ). Denies: Neck Pain, Leg Pain, Foot Pain, Joint Pain, Joint Swelling Skin: Reports: No Symptoms Neurological: Reports: No Symptoms Psychiatric: Reports: No Symptoms - Patient Data Vitals - Most Recent: Last Vital Signs Temp 97.9 F 10/29/17 05:22 Pulse 58 L 10/29/17 05:22 Resp 18 10/29/17 05:22 BP 139/74 10/29/17 05:22 Pulse Ox 98 10/29/17 05:22 Weight - Most Recent: 187 lb 5 oz I&O - Last 24 hours: Intake & Output 10/28/17 10/29/17 10/29/17 22:59 06:59 14:59 Intake Total 1300 300 Output Total 1300 Balance 0 300 Lab Results - Last 24 hrs: Laboratory Results - last 24 hr 10/28/17 10/28/17 10/29/17 Range/Units 16:59 21:20 05:46 WBC 5.60 (4.23-9.07) K/mm3 RBC 3.68 L (4.63-6.08) M/mm3 Hgb 12.1 L (13.7-17.5) gm/L Hct 37.0 L (40.1-51.0) % MCV 100.5 H (79.0-92.2) fl MCH 32.9 H (25.7-32.2) pg MCHC 32.7 (32.2-35.5) g/dl RDW Std Deviation 45.5 H (35.1-43.9) fL Plt Count 156 L (163-337) K/mm3 MPV 10.5 (9.4-12.3) fl Neut % (Auto) 57.8 (34.0-67.9) % Lymph % (Auto) 27.3 (21.8-53.1) % [place] % (Auto) 9.1 (5.3-12.2) % Eos % (Auto) 5.0 (0.8-7.0) Baso % (Auto) 0.4 (0.1-1.2) % Neut # (Auto) 3.24 (1.78-5.38) K/mm3 Lymph # (Auto) 1.53 (1.32-3.57) K/mm3 [place] # (Auto) 0.51 (0.30-0.82) K/mm3 Eos # (Auto) 0.28 (0.04-0.54) K/mm3 Baso # (Auto) 0.02 (0.01-0.08) K/mm3 Sodium (136-145) mEq/L Potassium (3.5-5.1) mEq/L Chloride (98-107) mEq/L Carbon Dioxide (21-32) mEq/L Anion Gap (5-15) BUN (7-18) mg/dL Creatinine (0.7-1.3) mg/dL Est Cr Clr Drug Dosing mL/min Estimated GFR (MDRD) (>60) mL/min BUN/Creatinine Ratio (14-18) Glucose (83-115) mg/dL POC Glucose 173 H 112 H (83-110) mg/dL Calcium (8.5-10.1) mg/dL Magnesium (1.8-2.4) mg/dl C-Reactive Protein (<1.0) mg/dL 10/29/17 10/29/17 10/29/17 Range/Units 05:46 05:46 11:13 WBC (4.23-9.07) K/mm3 RBC (4.63-6.08) M/mm3 Hgb (13.7-17.5) gm/L Hct (40.1-51.0) % MCV (79.0-92.2) fl MCH (25.7-32.2) pg MCHC (32.2-35.5) g/dl RDW Std Deviation (35.1-43.9) fL Plt Count (163-337) K/mm3 MPV (9.4-12.3) fl Neut % (Auto) (34.0-67.9) % Lymph % (Auto) (21.8-53.1) % [place] % (Auto) (5.3-12.2) % Eos % (Auto) (0.8-7.0) Baso % (Auto) (0.1-1.2) % Neut # (Auto) (1.78-5.38) K/mm3 Lymph # (Auto) (1.32-3.57) K/mm3 [place] # (Auto) (0.30-0.82) K/mm3 Eos # (Auto) (0.04-0.54) K/mm3 Baso # (Auto) (0.01-0.08) K/mm3 Sodium 135 L (136-145) mEq/L Potassium 4.5 (3.5-5.1) mEq/L Chloride 103 (98-107) mEq/L Carbon Dioxide 25 (21-32) mEq/L Anion Gap 11.5 (5-15) BUN 21 H (7-18) mg/dL Creatinine 1.4 H (0.7-1.3) mg/dL Est Cr Clr Drug Dosing 48.56 mL/min Estimated GFR (MDRD) 49 (>60) mL/min BUN/Creatinine Ratio 15.0 (14-18) Glucose 90 (83-115) mg/dL POC Glucose 101 128 H (83-110) mg/dL Calcium 8.4 L (8.5-10.1) mg/dL Magnesium 1.7 L (1.8-2.4) mg/dl C-Reactive Protein < 0.2 (<1.0) mg/dL Med Orders - Current: Current Medications Acetaminophen (Tylenol) 650 mg PO Q4H PRN PRN Reason: Pain (Mild 1-3)/fever Last Admin: 10/28/17 16:48 Dose: 325 mg Albuterol/Ipratropium (Duoneb 3.0-0.5 Mg/3 Ml) 3 ml NEB Q4H PRN PRN Reason: Shortness Of Breath/wheezing Bisacodyl (Dulcolax) 5 mg PO DAILY PRN PRN Reason: Constipation Dextrose/Water (Dextrose 50% In Water) 50 ml IVPUSH ASDIRECTED PRN PRN Reason: hypoglycemia Docusate Sodium (Colace) 100 mg PO BID PRN PRN Reason: Constipation Hydralazine HCl (Apresoline) 10 mg IVPUSH Q6H PRN PRN Reason: Hypertension Insulin Aspart (Novolog) 0 unit SUBCUT QIDACANDBED [facility]; Protocol Last Admin: 10/29/17 12:19 Dose: Not Given Magnesium Sulfate (Pharmacy To Dose - Magnesium Replacement) 1 dose .XX ASDIRECTED [facility] Metoprolol Tartrate (Lopressor) 5 mg IVPUSH Q4H PRN PRN Reason: Tachycardia Non-Formulary Medication (Lisinopril [Lisinopril]) 2.5 mg PO DAILY [facility] Ondansetron HCl (Zofran Odt) 4 mg PO Q6H PRN PRN Reason: nausea, able to take PO Ondansetron HCl (Zofran) 4 mg IV Q6H PRN PRN Reason: Nausea/Vomiting Oxycodone/Acetaminophen (Percocet 325-5 Mg) 1 tab PO Q4H PRN PRN Reason: Pain (moderate 4-6) Last Admin: 10/29/17 05:48 Dose: 1 tab PtomAmantidine (100 Mg Cap) 0 each PO BID@0900,1700 [facility] Last Admin: 10/29/17 09:38 Dose: 1 each Ptom Carbamazepine Xr 100 Mg Tab 0 each PO BID@0900,1700 [facility] Last Admin: 10/29/17 09:38 Dose: 1 each Ptom Carbamazepine Xr 400 Mg Tab 0 each PO BID@0900,1700 [facility] Last Admin: 10/29/17 09:40 Dose: 1 each PtomCarbidopa/L- (Dopa Cr 50/200 Tab) 0 each PO BEDTIME [facility] Last Admin: 10/28/17 22:57 Dose: 1 each PtomCarbidopa/L- (Dopa 25/250 Tab) 0 each PO TID@0800,1200,1700 [facility] Last Admin: 10/29/17 12:31 Dose: Not Given PtomMetformin (1000 Mg Tab) 0 each PO BID@0900,1700 [facility] Last Admin: 10/29/17 09:40 Dose: 1 each Rotigotine [Neupro . (33 Mg/Hr] 1 Patch) 0 each TOP DAILY [facility] Last Admin: 10/29/17 09:41 Dose: 1 each Polyethylene Glycol (Miralax) 17 gm PO DAILY PRN PRN Reason: Constipation Potassium Chloride (Pharmacy To Dose - Potassium Replacement) 1 dose .XX ASDIRECTED [facility] Senna/Docusate Sodium (Senna Plus) 1 tab PO BID PRN PRN Reason: Constipation Sodium Chloride (Saline Flush) 10 ml FLUSH ASDIRECTED PRN PRN Reason: Keep Vein Open Last Admin: 10/28/17 11:22 Dose: 10 ml Tramadol HCl (Ultram) 50 mg PO Q6H PRN PRN Reason: PAIN Discontinued Medications Cyclobenzaprine HCl (Flexeril) 10 mg PO ONETIME ONE Stop: 10/28/17 08:43 Last Admin: 10/28/17 09:10 Dose: 10 mg Fentanyl (Sublimaze) 50 mcg IVPUSH ONETIME ONE Stop: 10/28/17 11:16 Last Admin: 10/28/17 11:30 Dose: 50 mcg Hydromorphone HCl (Dilaudid) 0.5 mg IVPUSH ONETIME ONE Stop: 10/28/17 08:43 Last Admin: 10/28/17 09:05 Dose: 0.5 mg Hydromorphone HCl (Dilaudid) 0.5 mg IVPUSH Q2H PRN PRN Reason: Pain (severe 7-10) Sodium Chloride (Normal Saline) 1,000 mls @ 75 mls/hr IV ASDIRECTED [facility] Stop: 10/29/17 05:04 Last Admin: 10/28/17 16:48 Dose: 75 mls/hr Ketorolac Tromethamine (Toradol) 15 mg IVPUSH ONETIME ONE Stop: 10/28/17 08:43 Last Admin: 10/28/17 09:07 Dose: 15 mg Magnesium Oxide (Magnesium Oxide) 800 mg PO ONETIME ONE Stop: 10/29/17 09:01 Last Admin: 10/29/17 09:34 Dose: 800 mg Pneumococcal Polyvalent Vaccine (Pneumovax 23) 0.5 ml IM .ONCE ONE Stop: 10/28/17 15:01 - Exam Quality Assessment: Reports: DVT Prophylaxis General: Reports: Alert, Oriented, Cooperative HEENT: Reports: Pupils Equal, Pupils Reactive, EOMI, Mucous Membr. Moist/[place] Neck: Reports: Supple, Trachea Midline, No JVD Lungs: Reports: Clear to Auscultation, Normal Respiratory Effort Cardiovascular: Reports: Regular Rate, Regular Rhythm GI/Abdominal Exam: Normal Bowel Sounds, Soft, Non-Tender, No Organomegaly, No Distention, No Abnormal Bruit, No Mass, Pelvis Stable (Male) Exam: Deferred Rectal (Males) Exam: Deferred Back Exam: Reports: Normal Inspection, Full Range of Motion, Paraspinal Tenderness Extremities: Normal Inspection, Normal Range of Motion, Non-Tender, No Pedal Edema, Normal Capillary Refill Skin: Reports: Warm, Dry, Intact Neurological: Reports: No New Focal Deficit Psy/Mental Status: Reports: Alert, Normal Affect, Normal Mood
== END 2017-10-29 13:55 | disposition home or self-care (01) ==
LOC: SUPCPDRO 08:13 → JD.ED 08:13 → JD.MS 12:38
PROVIDERS: ADMIT Internal Medicine; ATTEND Internal Medicine
DX: G89.29 Other chronic pain (principal); M54.5 Low back pain; E11.8 Type 2 diabetes mellitus with unspecified complications; G20 Parkinson's disease; N17.9 Acute kidney failure, unspecified; N28.9 Disorder of kidney and ureter, unspecified; Z98.890 Other specified postprocedural states; Z79.84 Long term (current) use of oral hypoglycemic drugs; Z79.899 Other long term (current) drug therapy; Z87.891 Personal history of nicotine dependence
CPT/HCPCS: 36415; 72148; 80048; 80053; 82962; 83735; 85025; 85652; 86140; 96374; 96375; 97161; 97165; 97530; 99285; A9270; J1170; J1815; J1885; J3010; J7040; J7050; 96361; 99217; 99218; 99284; G0378

== ENCOUNTER 2020-01-13 13:36 | Emergency (ER) | payer MEDICARE, BC ==
[2020-01-13] MEDS ORDERED: Ketorolac 60 MG/2 ML SDV IM ONE (13:59)
[2020-01-13] MEDS ORDERED: predniSONE 20 MG Tab PO ONE (14:02)
--- NOTE | 2020-01-13 14:10 | EDM.PDOC ---
ED HPI GENERAL MEDICAL PROBLEM - General Chief Complaint: Lower Extremity Injury/Pain Stated Complaint: LEG,HIP AND BACK PAIN Time Seen by Provider: 01/13/20 13:43 Source of Information: Reports: Patient History Limitations: Reports: No Limitations - History of Present Illness INITIAL COMMENTS - FREE TEXT/NARRATIVE: Patient is a 79-year-old male who presents to the emergency department with complaints of a 3-day history of left knee, leg, and hip pain. He first noticed the pain directly above his left knee and is moved progressively up his left calf and into the area of his left groin. He has not fallen or had any injury to the area. He has a history of Parkinson's disease and walks with a cane. He is still able to ambulate, however says it is uncomfortable. He exercises regularly at the [facility] using a recumbent bike and weightlifting. He has been able to continue these activities. He has a history of Parkinson's disease as well as a number of lumbar spinal surgeries. States he has had pain similar to this in the past. Denies numbness or tingling to the extremities or bowel or bladder dysfunction. His primary care provider is Dr. Bolton. He does have an appointment scheduled with him on Saturday. Left Leg Pain Score (Numeric/FACES): 8 - Related Data Allergies Allergy/AdvReac Type Severity Reaction Status Date / Time No Known Allergies Allergy Verified 01/13/20 13:49 Home Meds: Home Meds Amantadine [Symmetrel] 100 mg PO BID 10/28/17 [History] Carbidopa/Levodopa [Carbidopa-Levo ER 50-200] 1 tab PO BEDTIME 10/28/17 [History] Carbidopa/Levodopa [Carbidopa-Levodopa 25-250] 1 tab PO TID 10/28/17 [History] Rotigotine [Neupro .33 MG/Hr] 1 patch TOP DAILY 10/28/17 [History] carBAMazepine [Carbamazepine ER] 100 mg PO BID 10/28/17 [History] carBAMazepine [Carbamazepine ER] 400 mg PO BID 10/28/17 [History] metFORMIN HCl [Metformin HCl] 1,000 mg PO BID 10/28/17 [History] Cyanocobalamin (Vitamin B-12) [B-12] 1,000 mcg PO DAILY 01/13/20 [History] Losartan [Cozaar] 25 mg PO DAILY 01/13/20 [History] predniSONE [Prednisone] 20 mg PO ASDIRECTED #15 tablet 01/13/20 [Rx] Past Medical History HEENT History: Reports: Impaired Vision Other Genitourinary History: Right kidney mass that has been treated in past Musculoskeletal History: Reports: Other (See Below) Other Musculoskeletal History: 2 back surgeries Neurological History: Reports: Parkinson's Endocrine/Metabolic History: Reports: Diabetes, Type II Oncologic (Cancer) History: Reports: Squamous Cell Carcinoma Other Oncologic History: face and back 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 - Past Surgical History HEENT Surgical History: Reports: Cataract Surgery, Tonsillectomy GI Surgical History: Reports: Appendectomy Neurological Surgical History: Reports: Laminectomy Other Neurological Surgeries/Procedures: Ablation of nerves in back Social & Family History - Tobacco Use Smoking Status *Q: Former Smoker Used Tobacco, but Quit: Yes Month/Year Tobacco Last Used: 1979 - Caffeine Use Caffeine Use: Reports: None Other Caffeine Use: occasionally - Recreational Drug Use Recreational Drug Use: No Review of Systems - Review of Systems Review Of Systems: See Below Constitutional: Reports: No Symptoms. Denies: Chills, Fever, Weakness Eyes: Reports: No Symptoms Ears: Reports: No Symptoms Nose: Reports: No Symptoms Mouth/Throat: Reports: No Symptoms Respiratory: Reports: No Symptoms Cardiovascular: Reports: No Symptoms GI/Abdominal: Reports: No Symptoms Genitourinary: Reports: No Symptoms Musculoskeletal: Reports: Back Pain (Left lower back), Leg Pain (Left) Skin: Reports: No Symptoms Neurological: Reports: No Symptoms Psychiatric: Reports: No Symptoms ED EXAM, GENERAL - Physical Exam Exam: See Below Exam Limited By: No Limitations General Appearance: Alert, WD/WN, No Apparent Distress Respiratory/Chest: No Respiratory Distress, Lungs Clear, Normal Breath Sounds, No Accessory Muscle Use, Chest Non-Tender Cardiovascular: Normal Peripheral Pulses, Regular Rate, Rhythm, No Edema, No Gallop, No JVD, No Murmur, No Rub Back Exam: Normal Inspection, Other (Tenderness over the SI joint. Pressure over the SI joint induces worsening pain in the left leg.). No: Muscle Spasm Extremities: Normal Inspection, Normal Range of Motion, Non-Tender, Normal Capillary Refill, No Pedal Edema Neurological: Alert, Oriented, Normal Cognition, Other (Tremor) Psychiatric: Normal Affect, Normal Mood Skin Exam: Warm, Dry, Intact, Normal Color, No Rash Course - Vital Signs Last Recorded V/S: Last Vital Signs Temp 97.5 F 01/13/20 13:42 Pulse 86 01/13/20 13:42 Resp 20 01/13/20 13:42 BP 166/87 H 01/13/20 13:42 Pulse Ox 100 01/13/20 13:42 - Orders/Labs/Meds Meds: Medications Discontinued Medications Generic Name Dose Route Start Last Admin Trade Name Betty PRN Reason Stop Dose Admin Ketorolac Tromethamine 60 mg 01/13/20 13:59 01/13/20 14:07 Toradol IM 01/13/20 14:00 60 mg ONETIME ONE Administration Prednisone 20 mg 01/13/20 14:02 01/13/20 14:07 Prednisone PO 01/13/20 14:03 20 mg ONETIME ONE Administration - Re-Assessments/Exams Free Text/Narrative Re-Assessment/Exam: 01/13/20 14:10 On exam, patient has tenderness over the left SI joint. Pressure with SI joint reproduces the pain he is having in his left leg. Discussed with him that he likely has inflammation within the SI joint. He does have an appointment coming up with his primary care provider on Saturday. We will give him a shot of Toradol and a first dose of prednisone. A prescription for prednisone will be sent to [facility] Recommend that he continue to use Tylenol as needed for pain. Discussed heat over the SI joint as needed. Return to the ER for worsening symptoms. Follow-up with primary care provider on Saturday as scheduled. Departure - Departure Time of Disposition: 14:11 Disposition: Home, Self-Care 01 Condition: Good Clinical Impression: SI (sacroiliac) joint inflammation - Discharge Information *PRESCRIPTION DRUG MONITORING PROGRAM REVIEWED*: No *COPY OF PRESCRIPTION DRUG MONITORING REPORT IN PATIENT MARISOL: No Prescriptions: predniSONE [Prednisone] 20 mg PO ASDIRECTED #15 tablet Instructions: Sacroiliac Joint Dysfunction Referrals: Waqas Bolton MD [Primary Care Provider] - Forms: ED Department Discharge Additional Instructions: You were seen in the emergency department for left leg pain for the last 3 days. On exam, you have tenderness over your SI joint and pressure over the joint does reproduce the pain in your leg. It is likely that you have inflammation within your SI joint that is causing the pain in your leg. While in the ER, you received an injection of Toradol as well as your first dose of prednisone. A prescription for prednisone has been sent to [facility] Take this medication as prescribed. You may also continue to use [id number] Tylenol as needed for pain. Heat over your left lower back may also be beneficial. I would recommend that you keep your follow-up appointment as scheduled with your primary care provider on Saturday. If you should experience any worsening symptoms, please not hesitate to return to the emergency department. Sepsis Event Note (ED) - Evaluation Sepsis Screening Result: No Definite Risk - Focused Exam Vital Signs: Vital Signs Temp Pulse Resp BP Pulse Ox 01/13/20 13:42 97.5 F 86 20 166/87 H 100
== END 2020-01-13 14:30 | disposition home or self-care (01) ==
LOC: JD.ED 13:36
DX: M46.1 Sacroiliitis, not elsewhere classified (principal); E11.9 Type 2 diabetes mellitus without complications; Z79.84 Long term (current) use of oral hypoglycemic drugs; Z87.891 Personal history of nicotine dependence; Z79.899 Other long term (current) drug therapy
CPT/HCPCS: 96372; 99283; J1885; J7512

== ENCOUNTER 2021-03-31 21:48 | Inpatient (IN) | payer MEDICARE, BC ==
[2021-03-31] MEDS ORDERED: HYDROmorphone 1 MG/ML Syringe IVPUSH ONE (22:32)
--- NOTE | 2021-03-31 22:41 | EDM.PDOC ---
<Derrick Rabago - Last Filed: 04/01/21 02:35> ED HPI GENERAL MEDICAL PROBLEM - General Chief Complaint: Lower Extremity Injury/Pain Stated Complaint: [facility] Time Seen by Provider: 03/31/21 22:27 - Related Data Allergies Allergy/AdvReac Type Severity Reaction Status Date / Time No Known Allergies Allergy Verified 03/31/21 22:01 Home Meds: Home Meds Amantadine [Symmetrel] 100 mg PO BID 10/28/17 [History] Carbidopa/Levodopa [Carbidopa-Levo ER 50-200] 1 tab PO BEDTIME 10/28/17 [History] Carbidopa/Levodopa [Carbidopa-Levodopa 25-250] 1 tab PO TID 10/28/17 [History] Rotigotine [Neupro .33 MG/Hr] 1 patch TOP DAILY 10/28/17 [History] carBAMazepine [Carbamazepine ER] 100 mg PO BID 10/28/17 [History] carBAMazepine [Carbamazepine ER] 400 mg PO BID 10/28/17 [History] metFORMIN HCl [Metformin HCl] 1,000 mg PO BID 10/28/17 [History] Cyanocobalamin (Vitamin B-12) [B-12] 1,000 mcg PO DAILY 01/13/20 [History] Losartan [Cozaar] 25 mg PO DAILY 01/13/20 [History] predniSONE [Prednisone] 20 mg PO ASDIRECTED #15 tablet 01/13/20 [Rx] Course - Re-Assessments/Exams Free Text/Narrative Re-Assessment/Exam: 04/01/21 02:35 Called by Linda at [facility] 1 call at 02 25. Case then discussed with Dr. Carlos Fisher, Orthopedic Surgeon on-call at [facility], at 02:32. It is his understanding that there are no beds currently available at [facility], but that once one becomes available, they would be happy to take him. We will board the patient here in the ED until then, although we could admit him to this facility to allow him to be more comfortable, if a bed should open up at this facility in the meantime. Dr. Fisher said that the patient should be allowed to eat, then we will make him n.p.o. when we learn of a bed at their facility becoming available. I am not sure if Nesha Calloway pushed the x-ray images to Heather Dagoberto Keith or not, therefore that was done at 02:36. I will also order a CBC and CMP for preoperative purposes. Departure - Departure Disposition: Admitted As Inpatient 67 Clinical Impression: Intertrochanteric fracture of right femur Qualifiers: Encounter type: initial encounter Fracture type: closed Fracture alignment: nondisplaced Qualified Code(s): S72.144A - Nondisplaced intertrochanteric fracture of right femur, initial encounter for closed fracture - Discharge Information Referrals: Waqas Bolton MD [Primary Care Provider] - Forms: ED Department Discharge <Nesha Calloway V - Last Filed: 04/01/21 11:14> ED HPI GENERAL MEDICAL PROBLEM - General Source of Information: Reports: Patient, Family (), RN Notes Reviewed History Limitations: Reports: No Limitations - History of Present Illness INITIAL COMMENTS - FREE TEXT/NARRATIVE: Patient is a 80 year old male who presents to the ED via [facility] for the evaluation of a fall at home. The patient has a history of Parkinson's, and he went to get up and fell over. He had pain in his right hip after this, he states that he also felt a popping sensation. The ambulance did give him 25 mcg of fentanyl en route to the ER. Patient is vaccinated for COVID-19, and has not had any sick-like symptoms or fevers or chills, cough or shortness of breath, nausea/vomiting/diarrhea. Patient states that he is having no numbness or tingling distal to the injury. The leg does look rotated, but not necessarily shortened. Right Hip Pain Score (Numeric/FACES): 9 Past Medical History HEENT History: Reports: Impaired Vision Other Genitourinary History: Right kidney mass that has been treated in past Musculoskeletal History: Reports: Other (See Below) Other Musculoskeletal History: 2 back surgeries Neurological History: Reports: Parkinson's Endocrine/Metabolic History: Reports: Diabetes, Type II Oncologic (Cancer) History: Reports: Squamous Cell Carcinoma Other Oncologic History: face and back 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 - Past Surgical History HEENT Surgical History: Reports: Cataract Surgery, Tonsillectomy GI Surgical History: Reports: Appendectomy Neurological Surgical History: Reports: Laminectomy Other Neurological Surgeries/Procedures: Ablation of nerves in back Social & Family History - Caffeine Use Caffeine Use: Reports: None Other Caffeine Use: occasionally Review of Systems - Review of Systems Review Of Systems: Comprehensive ROS is negative, except as noted in HPI. ED EXAM, GENERAL - Physical Exam Exam: See Below Exam Limited By: No Limitations General Appearance: Alert, WD/WN, No Apparent Distress Respiratory/Chest: No Respiratory Distress, Lungs Clear, Normal Breath Sounds, No Accessory Muscle Use, Chest Non-Tender Cardiovascular: Normal Peripheral Pulses, Regular Rate, Rhythm, No Edema Peripheral Pulses: 2+: Dorsalis Pedis (L), Dorsalis Pedis (R) Extremities: Normal Capillary Refill, Other (slight rotation, no obvious shortening) Neurological: Alert, Oriented, Normal Cognition, No Motor/Sensory Deficits Psychiatric: Normal Affect, Normal Mood Skin Exam: Warm, Dry, Intact, Normal Color, No Rash Course - Vital Signs Last Recorded V/S: Last Vital Signs Temp 97.1 F 03/31/21 21:55 Pulse 66 04/01/21 09:56 Resp 18 03/31/21 21:55 BP 131/63 03/31/21 21:55 Pulse Ox 95 04/01/21 09:56 - Orders/Labs/Meds Labs: Laboratory Tests 03/31/21 04/01/21 04/01/21 Range/Units 23:10 02:53 02:53 WBC 8.60 (4.23-9.07) K/mm3 RBC 3.04 L (4.63-6.08) M/mm3 Hgb 10.4 L D (13.7-17.5) gm/dl Hct 31.9 L (40.1-51.0) % MCV 104.9 H D (79.0-92.2) fl MCH 34.2 H (25.7-32.2) pg MCHC 32.6 (32.2-35.5) g/dl RDW Std Deviation 46.0 H (35.1-43.9) fL Plt Count 184 (163-337) K/mm3 MPV 9.2 L (9.4-12.3) fl Neutrophils % (Manual) 73 H (40-60) % Band Neutrophils % 0 (0-10) % Lymphocytes % (Manual) 18 L (20-40) % Atypical Lymphs % 0 % Monocytes % (Manual) 8 (2-10) % Eosinophils % (Manual) 1 (0.8-7.0) % Basophils % (Manual) 0 L (0.2-1.2) Platelet Estimate Adequate Anisocytosis 1+ slight Macrocytosis 1+ slight RBC Morph Comment Abnormal Sodium 140 (136-145) mEq/L Potassium 4.8 (3.5-5.1) mEq/L Chloride 107 (98-107) mEq/L Carbon Dioxide 25 (21-32) mEq/L Anion Gap 12.8 (5-15) BUN 27 H (7-18) mg/dL Creatinine 1.6 H (0.7-1.3) mg/dL Est Cr Clr Drug Dosing 39.87 mL/min Estimated GFR (MDRD) 42 (>60) mL/min BUN/Creatinine Ratio 16.9 (14-18) Glucose 134 H (70-99) mg/dL Calcium 8.2 L (8.5-10.1) mg/dL Total Bilirubin 0.2 (0.2-1.0) mg/dL AST 10 L (15-37) U/L ALT 19 (16-63) U/L Alkaline Phosphatase 73 (46-116) U/L Total Protein 6.3 L (6.4-8.2) g/dl Albumin 3.4 (3.4-5.0) g/dl Globulin 2.9 gm/dL Albumin/Globulin Ratio 1.2 (1-2) SARS-CoV-2 RNA (MELISSA) Negative (NEGATIVE) Meds: Medications Discontinued Medications Generic Name Dose Route Start Last Admin Trade Name Betty PRN Reason Stop Dose Admin Hydromorphone HCl 1 mg 03/31/21 22:32 03/31/21 23:03 Hydromorphone 1 Mg/Ml Syringe IVPUSH 03/31/21 22:33 1 mg ONETIME ONE Administration Hydromorphone HCl 1 mg 04/01/21 07:21 04/01/21 07:37 Hydromorphone 1 Mg/Ml Syringe IVPUSH 04/01/21 07:22 1 mg ONETIME ONE Administration - Re-Assessments/Exams Free Text/Narrative Re-Assessment/Exam: 03/31/21 23:01 Patient presents to the ER for evaluation of a possible right hip fracture. We will go ahead and get x-rays, have given him 1 mg IV Dilaudid for ongoing pain management patient will have a Covid screen due to the possibility of needing surgical fixation of his right hip. 04/01/21 00:24 Coronavirus screen and influenza screen are negative for today's purposes. Patient's hip x-ray did demonstrate a slightly impacted nondisplaced intertrochanteric fracture of his right femur. This will need surgical management. We will go ahead and consult Ortho at [facility] in [place] for ongoing management as we do not have Ortho on-call at this time. 04/01/21 11:13 I was able to speak with Dr. Nicholas, orthopedist, and Dr. Oro, and they have accepted the patient for ongoing management Dr. Oro will do the medical admission and Dr. Nicholas states he will be on-call tomorrow, if he cannot get to the patient tomorrow he will do it Saturday morning as he only has 5 surgeries. Departure - Departure Time of Disposition: 11:14 Condition: Good Sepsis Event Note (ED) - Evaluation Sepsis Screening Result: No Definite Risk - Focused Exam Vital Signs: Vital Signs Pulse Pulse Ox 04/01/21 09:56 66 95
--- NOTE | 2021-04-01 07:12 | CR ---
Pelvis and right hip: AP view of the pelvis was obtained as well as AP view of the right hip and crosstable lateral views of the right hip. Comparison: No prior hip or pelvis imaging is available. Intertrochanteric fracture is noted within the right hip. Degenerative change is partially seen within the lower lumbar spine. Bony structures are somewhat osteopenic. No additional fracture or other bony abnormality is appreciated. Impression: 1. Intertrochanteric fracture within the right hip. 2. Degenerative change within the lumbar spine. Diagnostic code #3
[2021-04-01] MEDS ORDERED: HYDROmorphone 1 MG/ML Syringe IVPUSH ONE (07:21)
--- NOTE | 2021-04-01 07:25 | EDM.PDOC ---
ED HPI GENERAL MEDICAL PROBLEM - General Chief Complaint: Lower Extremity Injury/Pain Stated Complaint: [facility] Time Seen by Provider: 03/31/21 22:27 Source of Information: Reports: Patient, Family (), RN Notes Reviewed History Limitations: Reports: No Limitations Right Hip Pain Score (Numeric/FACES): 9 - Related Data Allergies Allergy/AdvReac Type Severity Reaction Status Date / Time No Known Allergies Allergy Verified 04/01/21 13:44 Home Meds: Home Meds Amantadine [Symmetrel] 100 mg PO BID 10/28/17 [History] Carbidopa/Levodopa [Carbidopa-Levo ER 50-200] 1 tab PO BEDTIME 10/28/17 [History] Carbidopa/Levodopa [Carbidopa-Levodopa 25-250] 1 tab PO TID 10/28/17 [History] Rotigotine [Neupro .33 MG/Hr] 1 patch TOP DAILY 10/28/17 [History] carBAMazepine [Carbamazepine ER] 100 mg PO BID 10/28/17 [History] carBAMazepine [Carbamazepine ER] 400 mg PO BID 10/28/17 [History] metFORMIN HCl [Metformin HCl] 1,000 mg PO BID 10/28/17 [History] Losartan [Cozaar] 25 mg PO DAILY 01/13/20 [History] Past Medical History HEENT History: Reports: Impaired Vision Other Genitourinary History: Right kidney mass that has been treated in past Musculoskeletal History: Reports: Other (See Below) Other Musculoskeletal History: 2 back surgeries Neurological History: Reports: Parkinson's Endocrine/Metabolic History: Reports: Diabetes, Type II Oncologic (Cancer) History: Reports: Squamous Cell Carcinoma Other Oncologic History: face and back 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 - Past Surgical History HEENT Surgical History: Reports: Cataract Surgery, Tonsillectomy GI Surgical History: Reports: Appendectomy Neurological Surgical History: Reports: Laminectomy Other Neurological Surgeries/Procedures: Ablation of nerves in back Social & Family History - Tobacco Use Tobacco Use Status *Q: Unknown Ever Used Tobacco - Caffeine Use Caffeine Use: Reports: None Other Caffeine Use: occasionally Review of Systems - Review of Systems Review Of Systems: Unable To Obtain ED EXAM, GENERAL - Physical Exam Exam: See Below Exam Limited By: No Limitations General Appearance: Alert, WD/WN, No Apparent Distress Respiratory/Chest: No Respiratory Distress, Lungs Clear, Normal Breath Sounds, No Accessory Muscle Use, Chest Non-Tender Cardiovascular: Normal Peripheral Pulses, Regular Rate, Rhythm, No Edema Peripheral Pulses: 2+: Dorsalis Pedis (L), Dorsalis Pedis (R) Extremities: Normal Capillary Refill, Other (slight rotation, no obvious shortening) Neurological: Alert, Oriented, Normal Cognition, No Motor/Sensory Deficits Psychiatric: Normal Affect, Normal Mood Skin Exam: Warm, Dry, Intact, Normal Color, No Rash Course - Vital Signs Last Recorded V/S: Last Vital Signs Temp 97.7 F 04/02/21 17:38 Pulse 76 04/02/21 17:38 Resp 16 04/02/21 17:38 BP 110/95 H 04/02/21 17:38 Pulse Ox 92 L 04/02/21 17:38 - Orders/Labs/Meds Orders: Medication Orders Acetaminophen (Acetaminophen 325 Mg Tab) 650 mg PO Q4H PRN PRN Reason: Pain (Mild 1-3)/fever Amantadine HCl (Amantadine 100 Mg Cap) 100 mg PO BID@0800,1700 [facility] Last Admin: 04/02/21 17:49 Dose: 100 mg Documented by: Admin: 04/02/21 08:01 Dose: 100 mg Documented by: NATACHA Docusate Sodium (Docusate Sodium 100 Mg Cap) 100 mg PO Q12H PRN PRN Reason: Constipation Last Admin: 04/02/21 14:03 Dose: 100 mg Documented by: NATACHA Enoxaparin Sodium (Enoxaparin 40 Mg/0.4 Ml Syringe) 40 mg SUBCUT DAILY [facility] Last Admin: 04/02/21 13:38 Dose: 40 mg Documented by: NATACHA Hydromorphone HCl (Hydromorphone 0.5 Mg/0.5 Ml Syringe) 0.5 mg IVPUSH Q2H PRN PRN Reason: Pain (severe 7-10) Lactated Ringer's (Ringers, Lactated) 1,000 mls @ 75 mls/hr IV ASDIRECTED [facility] Last Admin: 04/02/21 17:50 Dose: 75 mls/hr Documented by: Infusion: 04/02/21 17:25 Dose: 75 mls/hr Documented by: Admin: 04/02/21 04:05 Dose: 75 mls/hr Documented by: Infusion: 04/02/21 03:52 Dose: 75 mls/hr Documented by: Admin: 04/01/21 14:32 Dose: 75 mls/hr Documented by: KARLI Insulin Human Lispro (Insulin Lispro 100 Unit/Ml 10 Ml Vial) 0 unit SUBCUT QIDACANDBED [facility]; Protocol Last Admin: 04/02/21 17:48 Dose: Not Given Documented by: Admin: 04/02/21 16:30 Dose: Not Given Documented by: Admin: 04/02/21 08:04 Dose: Not Given Documented by: Admin: 04/01/21 22:01 Dose: Not Given Documented by: SHELLEY Losartan Potassium (Losartan 25 Mg Tab) 25 mg PO DAILY@0800 [facility] Last Admin: 04/02/21 07:49 Dose: 25 mg Documented by: NATACHA Metformin HCl (Metformin 500 Mg Tab) 1,000 mg PO BIDMEALS [facility] Last Admin: 04/02/21 17:46 Dose: 1,000 mg Documented by: Admin: 04/02/21 08:05 Dose: 1,000 mg Documented by: NATACHA Rotigotine [Neupro . (33 Mg/Hr] 8 Mg Patch) 1 patch TOP DAILY [facility] Carbamazepine Xr 100 (Mg Tab Own Med) 100 mg PO BID@0800,1700 [facility] Last Admin: 04/02/21 08:02 Dose: 100 mg Documented by: NATACHA Carbidopa/Levodopa 25-250mg Tab Own Med 1 tab PO TID@0700,1300,1900 [facility] Last Admin: 04/02/21 13:29 Dose: 1 tab Documented by: Admin: 04/02/21 07:48 Dose: 1 tab Documented by: NATACHA Carbamazepine Er 400 (Mg Tab Own Med) 400 mg PO BID@0800,1700 [facility] Last Admin: 04/02/21 08:01 Dose: 400 mg Documented by: NATACHA Ondansetron HCl (Ondansetron 4 Mg/2 Ml Sdv) 4 mg IV Q6H PRN PRN Reason: Nausea/Vomiting Oxycodone HCl (Oxycodone 5 Mg Tab) 5 mg PO Q4H PRN PRN Reason: Pain (moderate 4-6) Last Admin: 04/02/21 15:28 Dose: 5 mg Documented by: Admin: 04/02/21 04:02 Dose: 5 mg Documented by: Admin: 04/01/21 21:44 Dose: 5 mg Documented by: Admin: 04/01/21 14:30 Dose: 5 mg Documented by: KARLI Carbidopa/Levodopa Er 50-200 Mg Tab Own Med 1 each PO BEDTIME [facility] Last Admin: 04/01/21 22:15 Dose: 1 each Documented by: SHELLEY Labs: Laboratory Tests 03/31/21 04/01/21 04/01/21 Range/Units 23:10 02:53 02:53 WBC 8.60 (4.23-9.07) K/mm3 RBC 3.04 L (4.63-6.08) M/mm3 Hgb 10.4 L D (13.7-17.5) gm/dl Hct 31.9 L (40.1-51.0) % MCV 104.9 H D (79.0-92.2) fl MCH 34.2 H (25.7-32.2) pg MCHC 32.6 (32.2-35.5) g/dl RDW Std Deviation 46.0 H (35.1-43.9) fL Plt Count 184 (163-337) K/mm3 MPV 9.2 L (9.4-12.3) fl Neutrophils % (Manual) 73 H (40-60) % Band Neutrophils % 0 (0-10) % Lymphocytes % (Manual) 18 L (20-40) % Atypical Lymphs % 0 % Monocytes % (Manual) 8 (2-10) % Eosinophils % (Manual) 1 (0.8-7.0) % Basophils % (Manual) 0 L (0.2-1.2) Platelet Estimate Adequate Anisocytosis 1+ slight Macrocytosis 1+ slight RBC Morph Comment Abnormal Sodium 140 (136-145) mEq/L Potassium 4.8 (3.5-5.1) mEq/L Chloride 107 (98-107) mEq/L Carbon Dioxide 25 (21-32) mEq/L Anion Gap 12.8 (5-15) BUN 27 H (7-18) mg/dL Creatinine 1.6 H (0.7-1.3) mg/dL Est Cr Clr Drug Dosing 39.87 mL/min Estimated GFR (MDRD) 42 (>60) mL/min BUN/Creatinine Ratio 16.9 (14-18) Glucose 134 H (70-99) mg/dL Calcium 8.2 L (8.5-10.1) mg/dL Total Bilirubin 0.2 (0.2-1.0) mg/dL AST 10 L (15-37) U/L ALT 19 (16-63) U/L Alkaline Phosphatase 73 (46-116) U/L Total Protein 6.3 L (6.4-8.2) g/dl Albumin 3.4 (3.4-5.0) g/dl Globulin 2.9 gm/dL Albumin/Globulin Ratio 1.2 (1-2) SARS-CoV-2 RNA (MELISSA) Negative (NEGATIVE) Meds: Medications Generic Name Dose Route Start Last Admin Trade Name Freq PRN Reason Stop Dose Admin Acetaminophen 650 mg 04/01/21 13:34 Acetaminophen 325 Mg Tab PO Q4H PRN Pain (Mild 1-3)/fever Amantadine HCl 100 mg 04/02/21 08:00 04/02/21 17:49 Amantadine 100 Mg Cap PO 100 mg BID@0800,1700 [facility] Administration Docusate Sodium 100 mg 04/02/21 13:47 04/02/21 14:03 Docusate Sodium 100 Mg Cap PO 100 mg Q12H PRN Administration Constipation Enoxaparin Sodium 40 mg 04/02/21 09:00 04/02/21 13:38 Enoxaparin 40 Mg/0.4 Ml Syringe SUBCUT 40 mg DAILY [facility] Administration Hydromorphone HCl 0.5 mg 04/01/21 13:37 Hydromorphone 0.5 Mg/0.5 Ml Syringe IVPUSH Q2H PRN Pain (severe 7-10) Lactated Ringer's 1,000 mls @ 75 mls/hr 04/01/21 14:00 04/02/21 17:50 Ringers, Lactated IV 75 mls/hr ASDIRECTED [facility] Administration Insulin Human Lispro 0 unit 04/01/21 22:00 04/02/21 17:48 Insulin Lispro 100 Unit/Ml 10 Ml Vial SUBCUT Not Given QIDACANDBED [facility] Protocol Losartan Potassium 25 mg 04/02/21 08:00 04/02/21 07:49 Losartan 25 Mg Tab PO 25 mg DAILY@0800 [facility] Administration Metformin HCl 1,000 mg 04/02/21 07:00 04/02/21 17:46 Metformin 500 Mg Tab PO 1,000 mg BIDMEALS [facility] Administration Rotigotine [Neupro . 1 patch 04/02/21 09:00 33 Mg/Hr] 8 Mg Patch TOP DAILY [facility] Carbamazepine Xr 100 100 mg 04/02/21 08:00 04/02/21 08:02 Mg Tab Own Med PO 100 mg BID@0800,1700 [facility] Administration Carbidopa/Levodopa 1 tab 04/02/21 07:00 04/02/21 13:29 25-250mg Tab Own PO 1 tab Med TID@0700,1300,1900 [facility] Administration Carbamazepine Er 400 400 mg 04/02/21 08:00 04/02/21 08:01 Mg Tab Own Med PO 400 mg BID@0800,1700 [facility] Administration Ondansetron HCl 4 mg 04/01/21 13:34 Ondansetron 4 Mg/2 Ml Sdv IV Q6H PRN Nausea/Vomiting Oxycodone HCl 5 mg 04/01/21 13:34 04/02/21 15:28 Oxycodone 5 Mg Tab PO 5 mg Q4H PRN Administration Pain (moderate 4-6) Carbidopa/Levodopa 1 each 04/01/21 21:00 04/01/21 22:15 Er 50-200 Mg Tab PO 1 each Own Med BEDTIME [facility] Administration Discontinued Medications Generic Name Dose Route Start Last Admin Trade Name Freq PRN Reason Stop Dose Admin Amantadine HCl 100 mg 04/01/21 21:00 04/01/21 22:16 Amantadine 100 Mg Cap PO 100 mg BID [facility] Administration Carbidopa/Levodopa 2 tab 04/01/21 21:00 Carbidopa/Levodopa 25-100 Mg Tab.Er PO BEDTIME [facility] Hydromorphone HCl 1 mg 03/31/21 22:32 03/31/21 23:03 Hydromorphone 1 Mg/Ml Syringe IVPUSH 03/31/21 22:33 1 mg ONETIME ONE Administration Hydromorphone HCl 1 mg 04/01/21 07:21 04/01/21 07:37 Hydromorphone 1 Mg/Ml Syringe IVPUSH 04/01/21 07:22 1 mg ONETIME ONE Administration Magnesium Sulfate 2 gm/ Premix 50 mls @ 25 mls/hr 04/02/21 07:41 04/02/21 08:44 IV 04/02/21 09:40 25 mls/hr ONETIME ONE Administration Losartan Potassium 25 mg 04/02/21 09:00 Losartan 25 Mg Tab PO DAILY [facility] Carbamazepine Xr 100 100 mg 04/01/21 21:00 Mg Tab Own Med PO BID [facility] Carbamazepine Er 400 400 mg 04/01/21 21:00 Mg Tab Own Med PO BID [facility] Carbidopa/Levodopa 1 tab 04/01/21 21:00 25-250mg Tab Own PO Med TID [facility] - Re-Assessments/Exams Free Text/Narrative Re-Assessment/Exam: 04/01/21 07:24 Assumed care of the patient at the end of Dr. Rabago shift. Patient continues to have right hip pain. Still waiting for disposition. Had a repeat dose of his Dilaudid. Otherwise seems to be fairly comfortable. Departure - Departure Time of Disposition: 19:00 Disposition: Admitted As Inpatient 67 Condition: Good Clinical Impression: Intertrochanteric fracture of right femur Qualifiers: Encounter type: initial encounter Fracture type: closed Fracture alignment: nondisplaced Qualified Code(s): S72.144A - Nondisplaced intertrochanteric fracture of right femur, initial encounter for closed fracture - Discharge Information Sepsis Event Note (ED) - Evaluation Sepsis Screening Result: No Definite Risk
[2021-04-01] MEDS ORDERED: Ondansetron 4 MG/2 ML SDV IV PRN (13:34)
--- NOTE | 2021-04-01 13:43 | PCM.HP.2 ---
H&P History of Present Illness - General Date of Service: 04/01/21 Admit Problem/Dx: Admission Diagnosis/Problem Admission Diagnosis/Problem Hip fracture, intertrochanteric - History of Present Illness Initial Comments - Free Text/Narative: 80-year-old male with Parkinson's fell at home after standing up from a card game and tripping over his own feet. Patient had no loss of conscience or head trauma. Patient also states that he heard a popping sound and felt a popping sensation. Patient was brought to the emergency department where he was found to have an intertrochanteric fracture within the right hip. Patient stayed overnight in the emergency department and they contacted Dr. Nicholas in orthopedic surgeon who said he would do surgery on him either Saturday or Saturday and asked for medicine to admit. Patient denies any fever or chills. He did receive two 1 mg doses of Dilaudid in the emergency department. He is currently having severe pain with any movement. Right Hip Pain Score (Numeric/FACES): 9 - Related Data Allergies/Adverse Reactions: Allergies Allergy/AdvReac Type Severity Reaction Status Date / Time No Known Allergies Allergy Verified 03/31/21 22:01 Home Medications: Home Meds Amantadine [Symmetrel] 100 mg PO BID 10/28/17 [History] Carbidopa/Levodopa [Carbidopa-Levo ER 50-200] 1 tab PO BEDTIME 10/28/17 [History] Carbidopa/Levodopa [Carbidopa-Levodopa 25-250] 1 tab PO TID 10/28/17 [History] Rotigotine [Neupro .33 MG/Hr] 1 patch TOP DAILY 10/28/17 [History] carBAMazepine [Carbamazepine ER] 100 mg PO BID 10/28/17 [History] carBAMazepine [Carbamazepine ER] 400 mg PO BID 10/28/17 [History] metFORMIN HCl [Metformin HCl] 1,000 mg PO BID 10/28/17 [History] Cyanocobalamin (Vitamin B-12) [B-12] 1,000 mcg PO DAILY 01/13/20 [History] Losartan [Cozaar] 25 mg PO DAILY 01/13/20 [History] predniSONE [Prednisone] 20 mg PO ASDIRECTED #15 tablet 01/13/20 [Rx] Past Medical History HEENT History: Reports: Impaired Vision Cardiovascular History: Reports: Hypertension Gastrointestinal History: Reports: Bowel Obstruction Other Genitourinary History: Right kidney mass that has been treated in past Musculoskeletal History: Reports: Other (See Below) Other Musculoskeletal History: 3 back surgeries Neurological History: Reports: Parkinson's Endocrine/Metabolic History: Reports: Diabetes, Type II Oncologic (Cancer) History: Reports: Squamous Cell Carcinoma Other Oncologic History: face and back 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 - Past Surgical History HEENT Surgical History: Reports: Cataract Surgery, Tonsillectomy GI Surgical History: Reports: Appendectomy Neurological Surgical History: Reports: Laminectomy Other Neurological Surgeries/Procedures: Ablation of nerves in back Social & Family History - Tobacco Use Tobacco Use Status *Q: Former Tobacco User Used Tobacco, but Quit: Yes Month/Year Tobacco Last Used: Second Hand Smoke Exposure: No - Caffeine Use Caffeine Use: Reports: Coffee Other Caffeine Use: occasionally Caffeine Use Comment: drinks about 1/2 cup coffee per day and maybe two cans soda per day - Recreational Drug Use Recreational Drug Use: No H&P Review of Systems - Review of Systems: Review Of Systems: Comprehensive ROS is negative, except as noted in HPI. Exam - Exam Exam: See Below - Vital Signs Vital Signs: Last Vital Signs Temp 97.1 F 03/31/21 21:55 Pulse 66 04/01/21 09:56 Resp 18 03/31/21 21:55 BP 131/63 03/31/21 21:55 Pulse Ox 95 04/01/21 09:56 Weight: 174 lb 12.8 oz - Exam Quality Assessment: No: Supplemental Oxygen General: Alert, Oriented HEENT: Conjunctiva Clear, EACs Clear, Hearing Intact, Mucosa Moist & [place], No rmal Nasal Septum Lungs: Clear to Auscultation, Normal Respiratory Effort Cardiovascular: Regular Rate, Regular Rhythm GI/Abdominal Exam: Normal Bowel Sounds, Soft, Non-Tender, No Distention Extremities: Normal Inspection, Normal Range of Motion, No Pedal Edema, Normal Capillary Refill. No: Non-Tender (Pain with movement of the right leg otherwise nontender) Peripheral Pulses: 1+: Posterior Tibial (L), Posterior Tibial (R), Dorsalis Pedis (L), Dorsalis Pedis (R) Skin: Warm, Dry, Intact Neuro Extensive - Mental Status: Alert, Oriented x3, Normal Mood/Affect, Normal Cognition - Patient Data Lab Results Last 24 hrs: Laboratory Results - last 24 hr 03/31/21 04/01/21 04/01/21 Range/Units 23:10 02:53 02:53 WBC 8.60 (4.23-9.07) K/mm3 RBC 3.04 L (4.63-6.08) M/mm3 Hgb 10.4 L D (13.7-17.5) gm/dl Hct 31.9 L (40.1-51.0) % MCV 104.9 H D (79.0-92.2) fl MCH 34.2 H (25.7-32.2) pg MCHC 32.6 (32.2-35.5) g/dl RDW Std Deviation 46.0 H (35.1-43.9) fL Plt Count 184 (163-337) K/mm3 MPV 9.2 L (9.4-12.3) fl Neutrophils % (Manual) 73 H (40-60) % Band Neutrophils % 0 (0-10) % Lymphocytes % (Manual) 18 L (20-40) % Atypical Lymphs % 0 % Monocytes % (Manual) 8 (2-10) % Eosinophils % (Manual) 1 (0.8-7.0) % Basophils % (Manual) 0 L (0.2-1.2) Platelet Estimate Adequate Anisocytosis 1+ slight Macrocytosis 1+ slight RBC Morph Comment Abnormal Sodium 140 (136-145) mEq/L Potassium 4.8 (3.5-5.1) mEq/L Chloride 107 (98-107) mEq/L Carbon Dioxide 25 (21-32) mEq/L Anion Gap 12.8 (5-15) BUN 27 H (7-18) mg/dL Creatinine 1.6 H (0.7-1.3) mg/dL Est Cr Clr Drug Dosing 39.87 mL/min Estimated GFR (MDRD) 42 (>60) mL/min BUN/Creatinine Ratio 16.9 (14-18) Glucose 134 H (70-99) mg/dL Calcium 8.2 L (8.5-10.1) mg/dL Total Bilirubin 0.2 (0.2-1.0) mg/dL AST 10 L (15-37) U/L ALT 19 (16-63) U/L Alkaline Phosphatase 73 (46-116) U/L Total Protein 6.3 L (6.4-8.2) g/dl Albumin 3.4 (3.4-5.0) g/dl Globulin 2.9 gm/dL Albumin/Globulin Ratio 1.2 (1-2) SARS-CoV-2 RNA (MELISSA) Negative (NEGATIVE) Result Diagrams: 04/01/21 02:53 04/01/21 02:53 Donte Results Last 24 hrs: Microbiology 03/31/21 23:10 Influenza Type A Antigen Screen - Final Nasopharyngeal Swab - Nare, Unspecified NEGATIVE INFLUENZA A VIRUS AG REFERENCE RANGE: NEGATIVE Influenza Type B Antigen Screen - Final NEGATIVE INFLUENZA B VIRUS AG REFERENCE RANGE: NEGATIVE Sepsis Event Note - Evaluation Sepsis Screening Result: No Definite Risk - Focused Exam Vital Signs: Vital Signs Pulse Pulse Ox 04/01/21 09:56 66 95 - Problem List (1) Hypertension SNOMED Code(s): 29730060 ICD Code: I10 - ESSENTIAL (PRIMARY) HYPERTENSION Status: Acute Current Visit: Yes (2) Intertrochanteric fracture of right femur SNOMED Code(s): 117905648, 76702662552527553 ICD Code: S72.141A - DISPLACED INTERTROCHANTERIC FRACTURE OF RIGHT FEMUR, INIT Status: Acute Current Visit: Yes Qualifiers: Encounter type: initial encounter Fracture type: closed Fracture alignment: nondisplaced Qualified Code(s): S72.144A - Nondisplaced intertrochanteric fracture of right femur, initial encounter for closed fracture (3) Parkinson disease SNOMED Code(s): 03919084 ICD Code: G20 - PARKINSON'S DISEASE Status: Chronic Priority: Medium Current Visit: No (4) Type II diabetes mellitus SNOMED Code(s): 56605683 ICD Code: E11.9 - TYPE 2 DIABETES MELLITUS WITHOUT COMPLICATIONS Status: Chronic Priority: Medium Current Visit: No Qualifiers: Diabetes mellitus watermelon harvesting supervisor insulin use: without watermelon harvesting supervisor use Diabetes mellitus complication status: with unspecified complications Problem List Initiated/Reviewed/Updated: Yes Orders Last 24hrs: Active Orders 24 hr Category Date Time Status Admission Status [Patient Status] [ADT] Routine ADT 04/01/21 11:15 Active Antiembolic Devices [RC] PER UNIT ROUTINE Care 04/01/21 13:36 Ordered Bedrest Bedside Commode [RC] ASDIRECTED Care 04/01/21 13:34 Ordered Oxygen Therapy [RC] PRN Care 04/01/21 13:34 Ordered VTE/DVT Education [RC] PER UNIT ROUTINE Care 04/01/21 13:34 Ordered Vital Signs [RC] Q4H Care 04/01/21 13:34 Ordered ADA Diabetic [[place] [employer] Diet] [DIET Diet 04/01/21 Lunch Active ] CBC WITH AUTO DIFF [HEME] AM Lab 04/02/21 05:11 Ordered COMPREHENSIVE METABOLIC PN,CMP [CHEM] AM Lab 04/02/21 05:11 Ordered MAGNESIUM [CHEM] AM Lab 04/02/21 05:11 Ordered PHOSPHORUS [CHEM] AM Lab 04/02/21 05:11 Ordered Acetaminophen [TylenoL] Med 04/01/21 13:34 Ordered 650 mg PO Q4H PRN HYDROmorphone [Dilaudid] Med 04/01/21 13:37 Ordered 0.5 mg IVPUSH Q2H PRN Ondansetron [Zofran] Med 04/01/21 13:34 Ordered 4 mg IV Q6H PRN oxyCODONE Med 04/01/21 13:34 Ordered 5 mg PO Q4H PRN Sequential Compression Device [OM.PC] Per Unit Routine Oth 04/01/21 13:34 Ordered Resuscitation Status Routine Resus Stat 04/01/21 13:34 Ordered Medication Orders Acetaminophen (Acetaminophen 325 Mg Tab) 650 mg PO Q4H PRN PRN Reason: Pain (Mild 1-3)/fever Hydromorphone HCl (Hydromorphone 0.5 Mg/0.5 Ml Syringe) 0.5 mg IVPUSH Q2H PRN PRN Reason: Pain (severe 7-10) Ondansetron HCl (Ondansetron 4 Mg/2 Ml Sdv) 4 mg IV Q6H PRN PRN Reason: Nausea/Vomiting Oxycodone HCl (Oxycodone 5 Mg Tab) 5 mg PO Q4H PRN PRN Reason: Pain (moderate 4-6) Assessment/Plan Comment:: 73-year-old male with Parkinson's disease tripped and causing an intertrochanteric fracture within the right hip. Intratrochanteric fracture of the right hip * Admitted for medical management waiting for surgery * Dr. Nicholas consulted * Surgery planned for tomorrow or the next day * Will need pain management * Neurovascularly intact Parkinson's disease * Bedrest until after surgery * Will need physical therapy * Continue home meds Hypertension/diabetes * Stop oral hypoglycemics * Continue hypertensive medications except ROSIE/ARB until after surgery Plan * Admit to medical floor * Oxycodone 5 mg every 4 hours as needed pain * Dilaudid 0.5 mg IV every 2 hours as needed pain * Sliding-scale insulin, fingerstick blood sugars 4 times daily * Continue home Parkinson's meds * Reconcile medication list when available * VTE prophylaxis with SCDs until surgery * CODE STATUS: Full code - Mortality Measure Prognosis:: Good
[2021-04-01] MEDS: oxyCODONE 5 MG Tab PO PRN ×2 (14:30→21:44)
[2021-04-01] MEDS: Lactated Ringers 1,000 ML IV SCH (14:32)
[2021-04-01] MEDS ORDERED: Amantadine 100 MG Cap PO SCH (21:00)
[2021-04-01] MEDS ORDERED: CARBIDOPA PO SCH (21:00)
[2021-04-01] MEDS ORDERED: LEVODOPA PO SCH (21:00)
[2021-04-01] MEDS ORDERED: CARBAMAZEPINE 100 MG PO SCH (21:00)
[2021-04-01] MEDS ORDERED: CARBAMAZEPINE 400 MG PO SCH (21:00)
[2021-04-01] MEDS ORDERED: Carbidopa/Levodopa 25-100 MG Tab.ER PO SCH (21:00)
[2021-04-01] MEDS: Insulin Lispro 100 UNIT/ML 10 ML Vial SUBCUT SCH (22:01)
[2021-04-01] MEDS: LEVODOPA PO SCH (22:15)
[2021-04-01] MEDS: CARBIDOPA PO SCH (22:15)
[2021-04-02] MEDS: oxyCODONE 5 MG Tab PO PRN ×3 (04:02→22:04)
[2021-04-02] MEDS: Lactated Ringers 1,000 ML IV SCH ×2 (04:05→17:50)
[2021-04-02] MEDS ORDERED: CARBIDOPA PO SCH (07:00)
[2021-04-02] MEDS ORDERED: LEVODOPA PO SCH (07:00)
[2021-04-02 07:01] LABS: HEMOGLOBIN A1C 6.2 %
[2021-04-02] MEDS ORDERED: Magnesium Sulfate/Water 2 GM in Premix Bag 1 BAG IV ONE (07:41)
[2021-04-02] MEDS: CARBIDOPA PO SCH ×4 (07:48→22:07)
[2021-04-02] MEDS: LEVODOPA PO SCH ×4 (07:48→22:07)
[2021-04-02] MEDS ORDERED: CARBAMAZEPINE 400 MG PO SCH (08:00)
[2021-04-02] MEDS ORDERED: Losartan 25 MG Tab PO SCH ×2 (08:00→09:00)
[2021-04-02] MEDS: Amantadine 100 MG Cap PO SCH ×2 (08:01→17:49)
[2021-04-02] MEDS: CARBAMAZEPINE 400 MG PO SCH ×2 (08:01→20:28)
[2021-04-02] MEDS: CARBAMAZEPINE 100 MG PO SCH ×3 (08:02→20:28)
[2021-04-02] MEDS: Insulin Lispro 100 UNIT/ML 10 ML Vial SUBCUT SCH ×4 (08:04→22:19)
[2021-04-02] MEDS: metFORMIN 500 MG Tab PO SCH ×2 (08:05→17:46)
--- NOTE | 2021-04-02 13:08 | PCM.PN ---
- General Info Date of Service: 04/02/21 Admission Dx/Problem (Free Text): Admission Diagnosis/Problem Admission Diagnosis/Problem Hip fracture, intertrochanteric Subjective Update: 80-year-old male with right intertrochanteric fracture of the hip. Patient states that his pain is well controlled. Family reports he has not had a bowel movement since Saturday. Functional Status: Reports: Pain Controlled - Review of Systems General: Reports: No Symptoms HEENT: Reports: No Symptoms Pulmonary: Reports: No Symptoms Cardiovascular: Reports: No Symptoms Gastrointestinal: Reports: No Symptoms Musculoskeletal: Reports: Leg Pain - Patient Data Vitals - Most Recent: Last Vital Signs Temp 98.1 F 04/02/21 07:55 Pulse 68 04/02/21 07:55 Resp 16 04/02/21 07:55 BP 133/71 04/02/21 07:55 Pulse Ox 93 L 04/02/21 07:55 Weight - Most Recent: 180 lb 14.4 oz I&O - Last 24 Hours: Intake & Output 04/01/21 04/02/21 04/02/21 22:59 06:59 14:59 Intake Total 1030 974 320 Output Total 300 550 550 Balance 730 424 -230 Lab Results Last 24 Hours: Laboratory Results - last 24 hr 04/01/21 04/01/21 04/02/21 Range/Units 17:58 21:52 05:05 WBC 6.32 (4.23-9.07) K/mm3 RBC 3.00 L (4.63-6.08) M/mm3 Hgb 10.2 L (13.7-17.5) gm/dl Hct 31.3 L (40.1-51.0) % MCV 104.3 H (79.0-92.2) fl MCH 34.0 H (25.7-32.2) pg MCHC 32.6 (32.2-35.5) g/dl RDW Std Deviation 45.3 H (35.1-43.9) fL Plt Count 148 L (163-337) K/mm3 MPV 9.6 (9.4-12.3) fl Neut % (Auto) 67.3 (34.0-67.9) % Lymph % (Auto) 19.3 L (21.8-53.1) % [place] % (Auto) 10.8 (5.3-12.2) % Eos % (Auto) 2.1 (0.8-7.0) Baso % (Auto) 0.2 (0.1-1.2) % Neut # (Auto) 4.26 (1.78-5.38) K/mm3 Lymph # (Auto) 1.22 L (1.32-3.57) K/mm3 [place] # (Auto) 0.68 (0.30-0.82) K/mm3 Eos # (Auto) 0.13 (0.04-0.54) K/mm3 Baso # (Auto) 0.01 (0.01-0.08) K/mm3 Sodium (136-145) mEq/L Potassium (3.5-5.1) mEq/L Chloride (98-107) mEq/L Carbon Dioxide (21-32) mEq/L Anion Gap (5-15) BUN (7-18) mg/dL Creatinine (0.7-1.3) mg/dL Est Cr Clr Drug Dosing mL/min Estimated GFR (MDRD) (>60) mL/min BUN/Creatinine Ratio (14-18) Glucose (70-99) mg/dL POC Glucose 122 H 95 (70-99) mg/dL Hemoglobin A1c ( - 5.6) % Calcium (8.5-10.1) mg/dL Phosphorus (2.6-4.7) mg/dL Magnesium (1.8-2.4) mg/dL Total Bilirubin (0.2-1.0) mg/dL AST (15-37) U/L ALT (16-63) U/L Alkaline Phosphatase (46-116) U/L Total Protein (6.4-8.2) g/dl Albumin (3.4-5.0) g/dl Globulin gm/dL Albumin/Globulin Ratio (1-2) 04/02/21 04/02/21 04/02/21 Range/Units 05:05 05:05 06:39 WBC (4.23-9.07) K/mm3 RBC (4.63-6.08) M/mm3 Hgb (13.7-17.5) gm/dl Hct (40.1-51.0) % MCV (79.0-92.2) fl MCH (25.7-32.2) pg MCHC (32.2-35.5) g/dl RDW Std Deviation (35.1-43.9) fL Plt Count (163-337) K/mm3 MPV (9.4-12.3) fl Neut % (Auto) (34.0-67.9) % Lymph % (Auto) (21.8-53.1) % [place] % (Auto) (5.3-12.2) % Eos % (Auto) (0.8-7.0) Baso % (Auto) (0.1-1.2) % Neut # (Auto) (1.78-5.38) K/mm3 Lymph # (Auto) (1.32-3.57) K/mm3 [place] # (Auto) (0.30-0.82) K/mm3 Eos # (Auto) (0.04-0.54) K/mm3 Baso # (Auto) (0.01-0.08) K/mm3 Sodium 137 (136-145) mEq/L Potassium 4.6 (3.5-5.1) mEq/L Chloride 105 (98-107) mEq/L Carbon Dioxide 24 (21-32) mEq/L Anion Gap 12.6 (5-15) BUN 21 H (7-18) mg/dL Creatinine 1.4 H (0.7-1.3) mg/dL Est Cr Clr Drug Dosing 44.18 mL/min Estimated GFR (MDRD) 49 (>60) mL/min BUN/Creatinine Ratio 15.0 (14-18) Glucose 108 H (70-99) mg/dL POC Glucose 97 (70-99) mg/dL Hemoglobin A1c 6.2 H ( - 5.6) % Calcium 8.1 L (8.5-10.1) mg/dL Phosphorus 3.0 (2.6-4.7) mg/dL Magnesium 1.6 L (1.8-2.4) mg/dL Total Bilirubin 0.5 (0.2-1.0) mg/dL AST 10 L (15-37) U/L ALT 9 L (16-63) U/L Alkaline Phosphatase 70 (46-116) U/L Total Protein 6.2 L (6.4-8.2) g/dl Albumin 3.1 L (3.4-5.0) g/dl Globulin 3.1 gm/dL Albumin/Globulin Ratio 1.0 (1-2) 04/02/21 Range/Units 12:26 WBC (4.23-9.07) K/mm3 RBC (4.63-6.08) M/mm3 Hgb (13.7-17.5) gm/dl Hct (40.1-51.0) % MCV (79.0-92.2) fl MCH (25.7-32.2) pg MCHC (32.2-35.5) g/dl RDW Std Deviation (35.1-43.9) fL Plt Count (163-337) K/mm3 MPV (9.4-12.3) fl Neut % (Auto) (34.0-67.9) % Lymph % (Auto) (21.8-53.1) % [place] % (Auto) (5.3-12.2) % Eos % (Auto) (0.8-7.0) Baso % (Auto) (0.1-1.2) % Neut # (Auto) (1.78-5.38) K/mm3 Lymph # (Auto) (1.32-3.57) K/mm3 [place] # (Auto) (0.30-0.82) K/mm3 Eos # (Auto) (0.04-0.54) K/mm3 Baso # (Auto) (0.01-0.08) K/mm3 Sodium (136-145) mEq/L Potassium (3.5-5.1) mEq/L Chloride (98-107) mEq/L Carbon Dioxide (21-32) mEq/L Anion Gap (5-15) BUN (7-18) mg/dL Creatinine (0.7-1.3) mg/dL Est Cr Clr Drug Dosing mL/min Estimated GFR (MDRD) (>60) mL/min BUN/Creatinine Ratio (14-18) Glucose (70-99) mg/dL POC Glucose 88 (70-99) mg/dL Hemoglobin A1c ( - 5.6) % Calcium (8.5-10.1) mg/dL Phosphorus (2.6-4.7) mg/dL Magnesium (1.8-2.4) mg/dL Total Bilirubin (0.2-1.0) mg/dL AST (15-37) U/L ALT (16-63) U/L Alkaline Phosphatase (46-116) U/L Total Protein (6.4-8.2) g/dl Albumin (3.4-5.0) g/dl Globulin gm/dL Albumin/Globulin Ratio (1-2) Med Orders - Current: Current Medications Acetaminophen (Acetaminophen 325 Mg Tab) 650 mg PO Q4H PRN PRN Reason: Pain (Mild 1-3)/fever Amantadine HCl (Amantadine 100 Mg Cap) 100 mg PO BID@0800,1700 [facility] Last Admin: 04/02/21 08:01 Dose: 100 mg Documented by: Enoxaparin Sodium (Enoxaparin 40 Mg/0.4 Ml Syringe) 40 mg SUBCUT DAILY [facility] Hydromorphone HCl (Hydromorphone 0.5 Mg/0.5 Ml Syringe) 0.5 mg IVPUSH Q2H PRN PRN Reason: Pain (severe 7-10) Lactated Ringer's (Ringers, Lactated) 1,000 mls @ 75 mls/hr IV ASDIRECTED [facility] Last Admin: 04/02/21 04:05 Dose: 75 mls/hr Documented by: Insulin Human Lispro (Insulin Lispro 100 Unit/Ml 10 Ml Vial) 0 unit SUBCUT QIDACANDBED [facility]; Protocol Last Admin: 04/02/21 08:04 Dose: Not Given Documented by: Losartan Potassium (Losartan 25 Mg Tab) 25 mg PO DAILY@0800 [facility] Last Admin: 04/02/21 07:49 Dose: 25 mg Documented by: Metformin HCl (Metformin 500 Mg Tab) 1,000 mg PO BIDMEALS [facility] Last Admin: 04/02/21 08:05 Dose: 1,000 mg Documented by: Rotigotine [Neupro . (33 Mg/Hr] 8 Mg Patch) 1 patch TOP DAILY [facility] Carbamazepine Xr 100 (Mg Tab Own Med) 100 mg PO BID@0800,1700 [facility] Last Admin: 04/02/21 08:02 Dose: 100 mg Documented by: Carbidopa/Levodopa 25-250mg Tab Own Med 1 tab PO TID@0700,1300,1900 [facility] Last Admin: 04/02/21 07:48 Dose: 1 tab Documented by: Carbamazepine Er 400 (Mg Tab Own Med) 400 mg PO BID@0800,1700 [facility] Last Admin: 04/02/21 08:01 Dose: 400 mg Documented by: Ondansetron HCl (Ondansetron 4 Mg/2 Ml Sdv) 4 mg IV Q6H PRN PRN Reason: Nausea/Vomiting Oxycodone HCl (Oxycodone 5 Mg Tab) 5 mg PO Q4H PRN PRN Reason: Pain (moderate 4-6) Last Admin: 04/02/21 04:02 Dose: 5 mg Documented by: Carbidopa/Levodopa Er 50-200 Mg Tab Own Med 1 each PO BEDTIME [facility] Last Admin: 04/01/21 22:15 Dose: 1 each Documented by: Discontinued Medications Amantadine HCl (Amantadine 100 Mg Cap) 100 mg PO BID [facility] Last Admin: 04/01/21 22:16 Dose: 100 mg Documented by: Carbidopa/Levodopa (Carbidopa/Levodopa 25-100 Mg Tab.Er) 2 tab PO BEDTIME [facility] Hydromorphone HCl (Hydromorphone 1 Mg/Ml Syringe) 1 mg IVPUSH ONETIME ONE Stop: 03/31/21 22:33 Last Admin: 03/31/21 23:03 Dose: 1 mg Documented by: Hydromorphone HCl (Hydromorphone 1 Mg/Ml Syringe) 1 mg IVPUSH ONETIME ONE Stop: 04/01/21 07:22 Last Admin: 04/01/21 07:37 Dose: 1 mg Documented by: Magnesium Sulfate 2 gm/ Premix 50 mls @ 25 mls/hr IV ONETIME ONE Stop: 04/02/21 09:40 Last Admin: 04/02/21 08:44 Dose: 25 mls/hr Documented by: Losartan Potassium (Losartan 25 Mg Tab) 25 mg PO DAILY [facility] Carbamazepine Xr 100 (Mg Tab Own Med) 100 mg PO BID [facility] Carbamazepine Er 400 (Mg Tab Own Med) 400 mg PO BID [facility] Carbidopa/Levodopa 25-250mg Tab Own Med 1 tab PO TID [facility] - Exam Quality Assessment: No: Supplemental Oxygen General: Alert, Oriented HEENT: Pupils Equal, Mucous Membr. Moist/[place] Neck: Supple Lungs: Clear to Auscultation, Normal Respiratory Effort Cardiovascular: Regular Rate, Regular Rhythm GI/Abdominal Exam: Normal Bowel Sounds, Soft, Non-Tender, No Distention Back Exam: Normal Inspection, Full Range of Motion Extremities: No Pedal Edema, Normal Capillary Refill Skin: Warm, Dry, Intact Psy/Mental Status: Alert, Normal Affect, Normal Mood - Patient Data Lab Results Last 24 hrs: Laboratory Results - last 24 hr 04/01/21 04/01/21 04/02/21 Range/Units 17:58 21:52 05:05 WBC 6.32 (4.23-9.07) K/mm3 RBC 3.00 L (4.63-6.08) M/mm3 Hgb 10.2 L (13.7-17.5) gm/dl Hct 31.3 L (40.1-51.0) % MCV 104.3 H (79.0-92.2) fl MCH 34.0 H (25.7-32.2) pg MCHC 32.6 (32.2-35.5) g/dl RDW Std Deviation 45.3 H (35.1-43.9) fL Plt Count 148 L (163-337) K/mm3 MPV 9.6 (9.4-12.3) fl Neut % (Auto) 67.3 (34.0-67.9) % Lymph % (Auto) 19.3 L (21.8-53.1) % [place] % (Auto) 10.8 (5.3-12.2) % Eos % (Auto) 2.1 (0.8-7.0) Baso % (Auto) 0.2 (0.1-1.2) % Neut # (Auto) 4.26 (1.78-5.38) K/mm3 Lymph # (Auto) 1.22 L (1.32-3.57) K/mm3 [place] # (Auto) 0.68 (0.30-0.82) K/mm3 Eos # (Auto) 0.13 (0.04-0.54) K/mm3 Baso # (Auto) 0.01 (0.01-0.08) K/mm3 Sodium (136-145) mEq/L Potassium (3.5-5.1) mEq/L Chloride (98-107) mEq/L Carbon Dioxide (21-32) mEq/L Anion Gap (5-15) BUN (7-18) mg/dL Creatinine (0.7-1.3) mg/dL Est Cr Clr Drug Dosing mL/min Estimated GFR (MDRD) (>60) mL/min BUN/Creatinine Ratio (14-18) Glucose (70-99) mg/dL POC Glucose 122 H 95 (70-99) mg/dL Hemoglobin A1c ( - 5.6) % Calcium (8.5-10.1) mg/dL Phosphorus (2.6-4.7) mg/dL Magnesium (1.8-2.4) mg/dL Total Bilirubin (0.2-1.0) mg/dL AST (15-37) U/L ALT (16-63) U/L Alkaline Phosphatase (46-116) U/L Total Protein (6.4-8.2) g/dl Albumin (3.4-5.0) g/dl Globulin gm/dL Albumin/Globulin Ratio (1-2) 04/02/21 04/02/21 04/02/21 Range/Units 05:05 05:05 06:39 WBC (4.23-9.07) K/mm3 RBC (4.63-6.08) M/mm3 Hgb (13.7-17.5) gm/dl Hct (40.1-51.0) % MCV (79.0-92.2) fl MCH (25.7-32.2) pg MCHC (32.2-35.5) g/dl RDW Std Deviation (35.1-43.9) fL Plt Count (163-337) K/mm3 MPV (9.4-12.3) fl Neut % (Auto) (34.0-67.9) % Lymph % (Auto) (21.8-53.1) % [place] % (Auto) (5.3-12.2) % Eos % (Auto) (0.8-7.0) Baso % (Auto) (0.1-1.2) % Neut # (Auto) (1.78-5.38) K/mm3 Lymph # (Auto) (1.32-3.57) K/mm3 [place] # (Auto) (0.30-0.82) K/mm3 Eos # (Auto) (0.04-0.54) K/mm3 Baso # (Auto) (0.01-0.08) K/mm3 Sodium 137 (136-145) mEq/L Potassium 4.6 (3.5-5.1) mEq/L Chloride 105 (98-107) mEq/L Carbon Dioxide 24 (21-32) mEq/L Anion Gap 12.6 (5-15) BUN 21 H (7-18) mg/dL Creatinine 1.4 H (0.7-1.3) mg/dL Est Cr Clr Drug Dosing 44.18 mL/min Estimated GFR (MDRD) 49 (>60) mL/min BUN/Creatinine Ratio 15.0 (14-18) Glucose 108 H (70-99) mg/dL POC Glucose 97 (70-99) mg/dL Hemoglobin A1c 6.2 H ( - 5.6) % Calcium 8.1 L (8.5-10.1) mg/dL Phosphorus 3.0 (2.6-4.7) mg/dL Magnesium 1.6 L (1.8-2.4) mg/dL Total Bilirubin 0.5 (0.2-1.0) mg/dL AST 10 L (15-37) U/L ALT 9 L (16-63) U/L Alkaline Phosphatase 70 (46-116) U/L Total Protein 6.2 L (6.4-8.2) g/dl Albumin 3.1 L (3.4-5.0) g/dl Globulin 3.1 gm/dL Albumin/Globulin Ratio 1.0 (1-2) 04/02/21 Range/Units 12:26 WBC (4.23-9.07) K/mm3 RBC (4.63-6.08) M/mm3 Hgb (13.7-17.5) gm/dl Hct (40.1-51.0) % MCV (79.0-92.2) fl MCH (25.7-32.2) pg MCHC (32.2-35.5) g/dl RDW Std Deviation (35.1-43.9) fL Plt Count (163-337) K/mm3 MPV (9.4-12.3) fl Neut % (Auto) (34.0-67.9) % Lymph % (Auto) (21.8-53.1) % [place] % (Auto) (5.3-12.2) % Eos % (Auto) (0.8-7.0) Baso % (Auto) (0.1-1.2) % Neut # (Auto) (1.78-5.38) K/mm3 Lymph # (Auto) (1.32-3.57) K/mm3 [place] # (Auto) (0.30-0.82) K/mm3 Eos # (Auto) (0.04-0.54) K/mm3 Baso # (Auto) (0.01-0.08) K/mm3 Sodium (136-145) mEq/L Potassium (3.5-5.1) mEq/L Chloride (98-107) mEq/L Carbon Dioxide (21-32) mEq/L Anion Gap (5-15) BUN (7-18) mg/dL Creatinine (0.7-1.3) mg/dL Est Cr Clr Drug Dosing mL/min Estimated GFR (MDRD) (>60) mL/min BUN/Creatinine Ratio (14-18) Glucose (70-99) mg/dL POC Glucose 88 (70-99) mg/dL Hemoglobin A1c ( - 5.6) % Calcium (8.5-10.1) mg/dL Phosphorus (2.6-4.7) mg/dL Magnesium (1.8-2.4) mg/dL Total Bilirubin (0.2-1.0) mg/dL AST (15-37) U/L ALT (16-63) U/L Alkaline Phosphatase (46-116) U/L Total Protein (6.4-8.2) g/dl Albumin (3.4-5.0) g/dl Globulin gm/dL Albumin/Globulin Ratio (1-2) Result Diagrams: 04/02/21 05:05 04/02/21 05:05 Sepsis Event Note - Evaluation Sepsis Screening Result: No Definite Risk - Focused Exam Vital Signs: Vital Signs Temp Pulse Resp BP Pulse Ox 04/02/21 07:55 98.1 F 68 16 133/71 93 L 04/02/21 07:49 133/71 04/02/21 03:59 98.8 F 72 14 146/88 H 94 L - Problem List & Annotations (1) Hypertension SNOMED Code(s): 17676397 Code(s): I10 - ESSENTIAL (PRIMARY) HYPERTENSION Status: Acute Current Visit: Yes (2) Intertrochanteric fracture of right femur SNOMED Code(s): 896708575, 79721631944789834 Code(s): S72.141A - DISPLACED INTERTROCHANTERIC FRACTURE OF RIGHT FEMUR, INIT Status: Acute Current Visit: Yes Qualifiers: Encounter type: initial encounter Fracture type: closed Fracture alignment: nondisplaced Qualified Code(s): S72.144A - Nondisplaced intertrochanteric fracture of right femur, initial encounter for closed fracture (3) Parkinson disease SNOMED Code(s): 02761228 Code(s): G20 - PARKINSON'S DISEASE Status: Chronic Priority: Medium Current Visit: No (4) Type II diabetes mellitus SNOMED Code(s): 59173242 Code(s): E11.9 - TYPE 2 DIABETES MELLITUS WITHOUT COMPLICATIONS Status: Chronic Priority: Medium Current Visit: No Qualifiers: Diabetes mellitus correction insulin use: without correction use Diabetes mellitus complication status: with unspecified complications - Problem List Review Problem List Initiated/Reviewed/Updated: Yes - My Orders Last 24 Hours: My Active Orders 04/01/21 13:34 Bedrest Bedside Commode [RC] BID Oxygen Therapy [RC] PRN VTE/DVT Education [RC] Vital Signs [RC] Q4HR Acetaminophen [TylenoL] 650 mg PO Q4H PRN Ondansetron [Zofran] 4 mg IV Q6H PRN oxyCODONE 5 mg PO Q4H PRN Sequential Compression Device [OM.PC] Per Unit Routine Resuscitation Status Routine 04/01/21 13:36 Antiembolic Devices [RC] BID 04/01/21 13:37 HYDROmorphone [Dilaudid] 0.5 mg IVPUSH Q2H PRN 04/01/21 14:00 Lactated Ringers [Ringers, Lactated] 1,000 ml IV ASDIRECTED 04/01/21 17:37 Blood Glucose Check, Bedside [RC] QIDACANDBED 04/01/21 21:00 Patient's Own Medication [Ptom] 1 each PO BEDTIME 04/01/21 22:00 Insulin Lispro [HumaLOG] See Protocol SUBCUT QIDACANDBED 04/02/21 07:00 Carbidopa/Levodopa 1 tab PO TID@0700,1300,1900 metFORMIN [Glucophage] 1,000 mg PO BIDMEALS 04/02/21 08:00 Amantadine [Symmetrel] 100 mg PO BID@0800,1700 Carbamazepine 100 mg PO BID@0800,1700 Carbamazepine [Carbamazepine Er] 400 mg PO BID@0800,1700 Losartan [Cozaar] 25 mg PO DAILY@0800 04/02/21 09:00 Enoxaparin [Lovenox] 40 mg SUBCUT DAILY Rotigotine [Neupro .33 MG/Hr] 1 patch TOP DAILY - Plan Plan:: 73-year-old male with Parkinson's disease tripped and causing an intertrochanteric fracture within the right hip. Intratrochanteric fracture of the right hip * Admitted for medical management waiting for surgery * Dr. Nicholas consulted * Surgery planned for tomorrow or the next day * Will need pain management * Neurovascularly intact Parkinson's disease * Bedrest until after surgery * Will need physical therapy * Continue home meds Hypertension/diabetes * Stop oral hypoglycemics * Continue hypertensive medications except ROSIE/ARB until after surgery Plan * Admit to medical floor * Oxycodone 5 mg every 4 hours as needed pain * Dilaudid 0.5 mg IV every 2 hours as needed pain * Sliding-scale insulin, fingerstick blood sugars 4 times daily * Continue home Parkinson's meds * Reconcile medication list when available * VTE prophylaxis Lovenox * CODE STATUS: Full code
[2021-04-02] MEDS: Enoxaparin 40 MG/0.4 ML Syringe SUBCUT SCH (13:38)
[2021-04-02] MEDS: Docusate Sodium 100 MG Cap PO PRN (14:03)
[2021-04-03] MEDS: Docusate Sodium 100 MG Cap PO PRN (03:35)
[2021-04-03] MEDS: Acetaminophen 325 MG Tab PO PRN ×3 (03:35→22:30)
[2021-04-03] MEDS: CARBIDOPA PO SCH ×4 (06:34→22:11)
[2021-04-03] MEDS: LEVODOPA PO SCH ×4 (06:34→22:11)
[2021-04-03] MEDS: Insulin Lispro 100 UNIT/ML 10 ML Vial SUBCUT SCH ×5 (06:40→22:30)
[2021-04-03] MEDS: METFORMIN 1000 MG PO SCH ×2 (06:41→17:20)
[2021-04-03] MEDS: Lactated Ringers 1,000 ML IV SCH ×2 (07:24→19:30)
--- NOTE | 2021-04-03 08:05 | PCM.PN ---
- General Info Date of Service: 04/03/21 Admission Dx/Problem (Free Text): Admission Diagnosis/Problem Admission Diagnosis/Problem Hip fracture, intertrochanteric Functional Status: Reports: Pain Controlled, Tolerating Diet, Urinating. Denies: Ambulating, New Symptoms - Review of Systems General: Reports: No Symptoms. Denies: Fever, Weakness, Fatigue, Malaise, Chills HEENT: Reports: No Symptoms. Denies: Headaches, Sore Throat Pulmonary: Reports: No Symptoms. Denies: Shortness of Breath, Cough, Sputum, Wheezing Cardiovascular: Reports: No Symptoms. Denies: Chest Pain, Palpitations, Dyspnea on Exertion Gastrointestinal: Reports: No Symptoms. Denies: Abdominal Pain, Constipation, Diarrhea, Nausea, Vomiting Genitourinary: Reports: No Symptoms. Denies: Pain Musculoskeletal: Reports: Leg Pain (right - with movement ) Skin: Reports: No Symptoms. Denies: Cyanosis Neurological: Reports: Confusion, Pre-Existing Deficit (Baseline Parkinson's disease), Tremors, Difficulty Walking, Weakness, Gait Disturbance. Denies: D izziness, Headache, Numbness, Syncope, Tingling Psychiatric: Reports: No Symptoms - Patient Data Vitals - Most Recent: Last Vital Signs Temp 98.4 F 04/03/21 07:30 Pulse 73 04/03/21 07:30 Resp 16 04/03/21 07:30 BP 107/58 L 04/03/21 07:30 Pulse Ox 91 L 04/03/21 07:30 Weight - Most Recent: 188 lb 14.4 oz I&O - Last 24 Hours: Intake & Output 04/02/21 04/03/21 04/03/21 22:59 06:59 14:59 Intake Total 1650 900 Output Total 600 Balance 1050 900 Lab Results Last 24 Hours: Laboratory Results - last 24 hr 04/02/21 04/02/21 04/02/21 Range/Units 12:26 17:33 22:11 POC Glucose 88 91 115 H (70-99) mg/dL 04/03/21 Range/Units 06:33 POC Glucose 99 (70-99) mg/dL Med Orders - Current: Current Medications Acetaminophen (Acetaminophen 325 Mg Tab) 650 mg PO Q4H PRN PRN Reason: Pain (Mild 1-3)/fever Last Admin: 04/03/21 03:35 Dose: 650 mg Documented by: Amantadine HCl (Amantadine 100 Mg Cap Own Med) 100 mg PO BID@0800,1700 [facility] Docusate Sodium (Docusate Sodium 100 Mg Cap) 100 mg PO Q12H PRN PRN Reason: Constipation Last Admin: 04/03/21 03:35 Dose: 100 mg Documented by: Enoxaparin Sodium (Enoxaparin 40 Mg/0.4 Ml Syringe) 40 mg SUBCUT DAILY [facility] Last Admin: 04/02/21 13:38 Dose: 40 mg Documented by: Hydromorphone HCl (Hydromorphone 0.5 Mg/0.5 Ml Syringe) 0.5 mg IVPUSH Q2H PRN PRN Reason: Pain (severe 7-10) Lactated Ringer's (Ringers, Lactated) 1,000 mls @ 75 mls/hr IV ASDIRECTED [facility] Last Admin: 04/03/21 07:24 Dose: 75 mls/hr Documented by: Insulin Human Lispro (Insulin Lispro 100 Unit/Ml 10 Ml Vial) 0 unit SUBCUT QIDACANDBED [facility]; Protocol Last Admin: 04/03/21 06:40 Dose: Not Given Documented by: Losartan Potassium (Losartan 25 Mg Tab Own Med) 25 mg PO DAILY@0800 [facility] Carbamazepine Xr 100 (Mg Tab Own Med) 100 mg PO BID@0800,1700 [facility] Last Admin: 04/02/21 20:28 Dose: 100 mg Documented by: Carbidopa/Levodopa 25-250mg Tab Own Med 1 tab PO TID@0700,1300,1900 [facility] Last Admin: 04/03/21 06:34 Dose: 1 tab Documented by: Carbamazepine Er 400 (Mg Tab Own Med) 400 mg PO BID@0800,1700 [facility] Last Admin: 04/02/21 20:28 Dose: 400 mg Documented by: Ondansetron HCl (Ondansetron 4 Mg/2 Ml Sdv) 4 mg IV Q6H PRN PRN Reason: Nausea/Vomiting Oxycodone HCl (Oxycodone 5 Mg Tab) 5 mg PO Q4H PRN PRN Reason: Pain (moderate 4-6) Last Admin: 04/02/21 22:04 Dose: 5 mg Documented by: Rotigotine [Neupro . (33 Mg/Hr] 8 Mg Patch) 0 each TOP DAILY [facility] Carbidopa/Levodopa Er 50-200 Mg Tab Own Med 1 each PO BEDTIME [facility] Last Admin: 04/02/21 22:07 Dose: 1 each Documented by: Metformin 1000mg Tab (Own Med) 1 each PO BIDMEALS [facility] Last Admin: 04/03/21 06:41 Dose: Not Given Documented by: Discontinued Medications Amantadine HCl (Amantadine 100 Mg Cap) 100 mg PO BID [facility] Last Admin: 04/01/21 22:16 Dose: 100 mg Documented by: Amantadine HCl (Amantadine 100 Mg Cap) 100 mg PO BID@0800,1700 [facility] Last Admin: 04/02/21 17:49 Dose: 100 mg Documented by: Carbidopa/Levodopa (Carbidopa/Levodopa 25-100 Mg Tab.Er) 2 tab PO BEDTIME [facility] Hydromorphone HCl (Hydromorphone 1 Mg/Ml Syringe) 1 mg IVPUSH ONETIME ONE Stop: 03/31/21 22:33 Last Admin: 03/31/21 23:03 Dose: 1 mg Documented by: Hydromorphone HCl (Hydromorphone 1 Mg/Ml Syringe) 1 mg IVPUSH ONETIME ONE Stop: 04/01/21 07:22 Last Admin: 04/01/21 07:37 Dose: 1 mg Documented by: Magnesium Sulfate 2 gm/ Premix 50 mls @ 25 mls/hr IV ONETIME ONE Stop: 04/02/21 09:40 Last Admin: 04/02/21 08:44 Dose: 25 mls/hr Documented by: Losartan Potassium (Losartan 25 Mg Tab) 25 mg PO DAILY [facility] Losartan Potassium (Losartan 25 Mg Tab) 25 mg PO DAILY@0800 [facility] Last Admin: 04/02/21 07:49 Dose: 25 mg Documented by: Metformin HCl (Metformin 500 Mg Tab) 1,000 mg PO BIDMEALS [facility] Last Admin: 04/02/21 17:46 Dose: 1,000 mg Documented by: Carbamazepine Xr 100 (Mg Tab Own Med) 100 mg PO BID [facility] Carbamazepine Er 400 (Mg Tab Own Med) 400 mg PO BID [facility] Carbidopa/Levodopa 25-250mg Tab Own Med 1 tab PO TID [facility] - Exam Quality Assessment: DVT Prophylaxis. No: Supplemental Oxygen, Urine Catheter General: Alert, Cooperative, No Acute Distress. No: Oriented HEENT: Pupils Equal, Pupils Reactive, Mucous Membr. Moist/[place] Neck: Supple, Trachea Midline Lungs: Clear to Auscultation, Normal Respiratory Effort Cardiovascular: Regular Rate, Regular Rhythm GI/Abdominal Exam: Normal Bowel Sounds, Soft, Non-Tender, No Distention (Male) Exam: Deferred Back Exam: Normal Inspection, Decreased Range of Motion Extremities: No Pedal Edema, Normal Capillary Refill, Leg Pain (right ), Limited Range of Motion (2/2 pain ) Peripheral Pulses: 2+: Radial (L), Radial (R), Dorsalis Pedis (L), Dorsalis Pedis (R) Skin: Warm, Dry, Intact Neurological: No New Focal Deficit Psy/Mental Status: Alert, Other (Pleasantly confused) - Patient Data Lab Results Last 24 hrs: Laboratory Results - last 24 hr 04/02/21 04/02/21 04/02/21 Range/Units 12:26 17:33 22:11 POC Glucose 88 91 115 H (70-99) mg/dL 04/03/21 Range/Units 06:33 POC Glucose 99 (70-99) mg/dL Result Diagrams: 04/03/21 08:30 04/03/21 08:30 Sepsis Event Note - Evaluation Sepsis Screening Result: No Definite Risk - Focused Exam Vital Signs: Vital Signs Temp Pulse Resp BP Pulse Ox 04/03/21 07:30 98.4 F 73 16 107/58 L 91 L 04/03/21 03:39 98.8 F 82 20 132/64 93 L 04/02/21 23:36 98.6 F 75 16 114/71 95 04/02/21 20:33 98.1 F 74 15 116/59 L 94 L - Problem List & Annotations (1) Intertrochanteric fracture of right femur SNOMED Code(s): 213206811, 79709648040004703 Code(s): S72.141A - DISPLACED INTERTROCHANTERIC FRACTURE OF RIGHT FEMUR, INIT Status: Acute Priority: High Current Visit: Yes Qualifiers: Encounter type: initial encounter Fracture type: closed Fracture alignment: nondisplaced Qualified Code(s): S72.144A - Nondisplaced intertrochanteric fracture of right femur, initial encounter for closed fracture (2) Hypertension SNOMED Code(s): 86270991 Code(s): I10 - ESSENTIAL (PRIMARY) HYPERTENSION Status: Chronic Priority: Medium Current Visit: Yes Qualifiers: Hypertension type: unspecified Qualified Code(s): I10 - Essential (primary) hypertension (3) Parkinson disease SNOMED Code(s): 27821237 Code(s): G20 - PARKINSON'S DISEASE Status: Chronic Priority: Medium Current Visit: No (4) Type II diabetes mellitus SNOMED Code(s): 13781048 Code(s): E11.9 - TYPE 2 DIABETES MELLITUS WITHOUT COMPLICATIONS Status: Chronic Priority: Medium Current Visit: No Qualifiers: 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 Intratrochanteric fracture of the right hip * Admitted for medical management waiting for surgery * Dr. Nicholas consulted * Surgery planned for this afternoon * Will need pain management * Neurovascularly intact * Noted confusion from pain medications this visit ( reports history of this in the past as well) * Given patient's history and chronic medical conditions patient has no prescription calculated 13.6% risk of serious complication and 13.7% risk of any complication. Patient is moderate risk for surgery. Parkinson's disease * Bedrest until after surgery * Will need physical therapy * Continue home meds Hypertension/diabetes * Stop oral hypoglycemics * Continue hypertensive medications except ROSIE/ARB until after surgery Plan * Admit to medical floor * Oxycodone 5 mg every 4 hours as needed pain * Dilaudid 0.5 mg IV every 2 hours as needed pain * Sliding-scale insulin, fingerstick blood sugars 4 times daily * Continue home Parkinson's meds * Surgery today with Dr. nicholas * PT/OT evaluation post-operatively * CM/SW consult - will likely require SNF rehab stay * NPO until post-operatively * VTE prophylaxis Lovenox * CODE STATUS: Full code
[2021-04-03] MEDS: CARBAMAZEPINE 100 MG PO SCH ×2 (08:17→17:20)
[2021-04-03] MEDS: CARBAMAZEPINE 400 MG PO SCH ×2 (08:17→17:20)
[2021-04-03] MEDS: Losartan 25 MG Tab **OWN MED PO SCH (08:18)
[2021-04-03] MEDS: AMANTADINE 100 MG PO SCH ×2 (09:31→17:19)
[2021-04-03] MEDS: Enoxaparin 40 MG/0.4 ML Syringe SUBCUT SCH (09:31)
--- NOTE | 2021-04-03 09:47 | PCM.PREANE ---
Preanesthetic Assessment - Procedure Proposed Procedure: Right Femur IM Gamma Nailing Hip - Anesthesia/Transfusion/Family Hx Anesthesia History: Prior Anesthesia Without Reaction Family History of Anesthesia Reaction: No Transfusion History: No Prior Transfusion(s) Intubation History: Unknown - Review of Systems General: No Symptoms Pulmonary: No Symptoms (ETOH: rarely) Cardiovascular: No Symptoms (HTN:), Lightheadedness Gastrointestinal: Constipation, Diarrhea, Difficulty Swallowing Neurological: No Symptoms (Parkinson's Disease: medications continued.), Headache, Numbness (bilateral feet) Other: Reports: None (Mass on kidney that is routinely monitored.), Easy Bleeding, Easy Bruising, Diabetes (632/am blood sugar=99) - Physical Assessment NPO Status Date: 04/02/21 NPO Status Time: 18:00 Vital Signs: Last Vital Signs Temp 36.9 C 04/03/21 07:30 Pulse 73 04/03/21 07:30 Resp 16 04/03/21 07:30 BP 107/58 L 04/03/21 07:30 Pulse Ox 91 L 04/03/21 07:30 Height: 1.78 m Weight: 85.684 kg ASA Class: 3 Mental Status: Alert & Oriented x3 Airway Class: Mallampati = 2 Dentition: Reports: Normal Dentition, Caries Thyro-Mental Finger Breadths: 3 Mouth Opening Finger Breadths: 3 ROM/Head Extension: Full Lungs: Clear to Auscultation, Normal Respiratory Effort Cardiovascular: Regular Rate, Regular Rhythm, No Murmurs - Lab Values: Laboratory Last Values WBC 6.41 K/mm3 (4.23-9.07) 04/03/21 08:30 RBC 2.83 M/mm3 (4.63-6.08) L 04/03/21 08:30 Hgb 9.6 gm/dl (13.7-17.5) L 04/03/21 08:30 Hct 29.5 % (40.1-51.0) L 04/03/21 08:30 MCV 104.2 fl (79.0-92.2) H 04/03/21 08:30 MCH 33.9 pg (25.7-32.2) H 04/03/21 08:30 MCHC 32.5 g/dl (32.2-35.5) 04/03/21 08:30 RDW Std Deviation 44.9 fL (35.1-43.9) H 04/03/21 08:30 Plt Count 154 K/mm3 (163-337) L 04/03/21 08:30 MPV 9.6 fl (9.4-12.3) 04/03/21 08:30 Neut % (Auto) 72.1 % (34.0-67.9) H 04/03/21 08:30 Lymph % (Auto) 15.3 % (21.8-53.1) L 04/03/21 08:30 [place] % (Auto) 10.5 % (5.3-12.2) 04/03/21 08:30 Eos % (Auto) 1.4 (0.8-7.0) 04/03/21 08:30 Baso % (Auto) 0.2 % (0.1-1.2) 04/03/21 08:30 Neut # (Auto) 4.63 K/mm3 (1.78-5.38) 04/03/21 08:30 Lymph # (Auto) 0.98 K/mm3 (1.32-3.57) L 04/03/21 08:30 [place] # (Auto) 0.67 K/mm3 (0.30-0.82) 04/03/21 08:30 Eos # (Auto) 0.09 K/mm3 (0.04-0.54) 04/03/21 08:30 Baso # (Auto) 0.01 K/mm3 (0.01-0.08) 04/03/21 08:30 Neutrophils % (Manual) 73 % (40-60) H 04/01/21 02:53 Band Neutrophils % 0 % (0-10) 04/01/21 02:53 Lymphocytes % (Manual) 18 % (20-40) L 04/01/21 02:53 Atypical Lymphs % 0 % 04/01/21 02:53 Monocytes % (Manual) 8 % (2-10) 04/01/21 02:53 Eosinophils % (Manual) 1 % (0.8-7.0) 04/01/21 02:53 Basophils % (Manual) 0 (0.2-1.2) L 04/01/21 02:53 Platelet Estimate Adequate 04/01/21 02:53 Anisocytosis 1+ slight 04/01/21 02:53 Macrocytosis 1+ slight 04/01/21 02:53 RBC Morph Comment Abnormal 04/01/21 02:53 Sodium 138 mEq/L (136-145) 04/03/21 08:30 Potassium 4.8 mEq/L (3.5-5.1) 04/03/21 08:30 Chloride 106 mEq/L (98-107) 04/03/21 08:30 Carbon Dioxide 24 mEq/L (21-32) 04/03/21 08:30 Anion Gap 12.8 (5-15) 04/03/21 08:30 BUN 24 mg/dL (7-18) H 04/03/21 08:30 Creatinine 1.3 mg/dL (0.7-1.3) 04/03/21 08:30 Est Cr Clr Drug Dosing 47.57 mL/min 04/03/21 08:30 Estimated GFR (MDRD) 53 mL/min (>60) 04/03/21 08:30 BUN/Creatinine Ratio 18.5 (14-18) H 04/03/21 08:30 Glucose 123 mg/dL (70-99) H 04/03/21 08:30 POC Glucose 99 mg/dL (70-99) 04/03/21 06:33 Hemoglobin A1c 6.2 % (-5.6) H 04/02/21 05:05 Calcium 8.2 mg/dL (8.5-10.1) L 04/03/21 08:30 Phosphorus 3.0 mg/dL (2.6-4.7) 04/02/21 05:05 Magnesium 1.9 mg/dL (1.8-2.4) 04/03/21 08:30 Total Bilirubin 0.5 mg/dL (0.2-1.0) 04/02/21 05:05 AST 10 U/L (15-37) L 04/02/21 05:05 ALT 9 U/L (16-63) L 04/02/21 05:05 Alkaline Phosphatase 70 U/L (46-116) 04/02/21 05:05 Total Protein 6.2 g/dl (6.4-8.2) L 04/02/21 05:05 Albumin 3.1 g/dl (3.4-5.0) L 04/02/21 05:05 Globulin 3.1 gm/dL 04/02/21 05:05 Albumin/Globulin Ratio 1.0 (1-2) 04/02/21 05:05 SARS-CoV-2 RNA (MELISSA) Negative (NEGATIVE) 03/31/21 23:10 Above labs reviewed and noted and within acceptable ranges to proceed with scheduled procedure. - Imaging/EKG Impressions: EKG: - Allergies Allergies/Adverse Reactions: Allergies Allergy/AdvReac Type Severity Reaction Status Date / Time No Known Allergies Allergy Verified 04/01/21 13:44 - Anesthesia Plan Pre-Op Medication Ordered: None - Acknowledgements Anesthesia Type Planned: General Anesthesia, Spinal Pt an Appropriate Candidate for the Planned Anesthesia: Yes Alternatives and Risks of Anesthesia Discussed w Pt/Guardian: Yes Pt/Guardian Understands and Agrees with Anesthesia Plan: Yes PreAnesthesia Questionnaire HEENT History: Reports: Impaired Vision Cardiovascular History: Reports: Hypertension Gastrointestinal History: Reports: Bowel Obstruction Other Genitourinary History: Right kidney mass that has been treated in past Musculoskeletal History: Reports: Other (See Below) Other Musculoskeletal History: 3 back surgeries Neurological History: Reports: Parkinson's Endocrine/Metabolic History: Reports: Diabetes, Type II Oncologic (Cancer) History: Reports: Squamous Cell Carcinoma Other Oncologic History: face and back 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 - Past Surgical History HEENT Surgical History: Reports: Cataract Surgery, Tonsillectomy GI Surgical History: Reports: Appendectomy Neurological Surgical History: Reports: Laminectomy Other Neurological Surgeries/Procedures: Ablation of nerves in back - SUBSTANCE USE Tobacco Use Status *Q: Former Tobacco User Tobacco Use Within Last Twelve Months: Cigarettes Second Hand Smoke Exposure: No Recreational Drug Use History: No - HOME MEDS Home Medications: Home Meds Amantadine [Symmetrel] 100 mg PO BID 10/28/17 [History] Carbidopa/Levodopa [Carbidopa-Levo ER 50-200] 1 tab PO BEDTIME 10/28/17 [History] Carbidopa/Levodopa [Carbidopa-Levodopa 25-250] 1 tab PO TID 10/28/17 [History] Rotigotine [Neupro .33 MG/Hr] 1 patch TOP DAILY 10/28/17 [History] carBAMazepine [Carbamazepine ER] 100 mg PO BID 10/28/17 [History] carBAMazepine [Carbamazepine ER] 400 mg PO BID 10/28/17 [History] metFORMIN HCl [Metformin HCl] 1,000 mg PO BID 10/28/17 [History] Losartan [Cozaar] 25 mg PO DAILY 01/13/20 [History] - CURRENT (IN HOUSE) MEDS Current Meds: Current Medications Acetaminophen (Acetaminophen 325 Mg Tab) 650 mg PO Q4H PRN PRN Reason: Pain (Mild 1-3)/fever Last Admin: 04/03/21 03:35 Dose: 650 mg Documented by: Amantadine HCl (Amantadine 100 Mg Cap Own Med) 100 mg PO BID@0800,1700 [facility] Last Admin: 04/03/21 09:31 Dose: Not Given Documented by: Docusate Sodium (Docusate Sodium 100 Mg Cap) 100 mg PO Q12H PRN PRN Reason: Constipation Last Admin: 04/03/21 03:35 Dose: 100 mg Documented by: Enoxaparin Sodium (Enoxaparin 40 Mg/0.4 Ml Syringe) 40 mg SUBCUT DAILY [facility] Last Admin: 04/03/21 09:31 Dose: Not Given Documented by: Hydromorphone HCl (Hydromorphone 0.5 Mg/0.5 Ml Syringe) 0.5 mg IVPUSH Q2H PRN PRN Reason: Pain (severe 7-10) Lactated Ringer's (Ringers, Lactated) 1,000 mls @ 75 mls/hr IV ASDIRECTED [facility] Last Admin: 04/03/21 07:24 Dose: 75 mls/hr Documented by: Insulin Human Lispro (Insulin Lispro 100 Unit/Ml 10 Ml Vial) 0 unit SUBCUT QIDACANDBED [facility]; Protocol Last Admin: 04/03/21 06:40 Dose: Not Given Documented by: Losartan Potassium (Losartan 25 Mg Tab Own Med) 25 mg PO DAILY@0800 [facility] Last Admin: 04/03/21 08:18 Dose: Not Given Documented by: Carbamazepine Xr 100 (Mg Tab Own Med) 100 mg PO BID@0800,1700 [facility] Last Admin: 04/03/21 08:17 Dose: Not Given Documented by: Carbidopa/Levodopa 25-250mg Tab Own Med 1 tab PO TID@0700,1300,1900 [facility] Last Admin: 04/03/21 06:34 Dose: 1 tab Documented by: Carbamazepine Er 400 (Mg Tab Own Med) 400 mg PO BID@0800,1700 [facility] Last Admin: 04/03/21 08:17 Dose: Not Given Documented by: Ondansetron HCl (Ondansetron 4 Mg/2 Ml Sdv) 4 mg IV Q6H PRN PRN Reason: Nausea/Vomiting Oxycodone HCl (Oxycodone 5 Mg Tab) 5 mg PO Q4H PRN PRN Reason: Pain (moderate 4-6) Last Admin: 04/02/21 22:04 Dose: 5 mg Documented by: Rotigotine [Neupro . (33 Mg/Hr] 8 Mg Patch) 0 each TOP DAILY [facility] Carbidopa/Levodopa Er 50-200 Mg Tab Own Med 1 each PO BEDTIME [facility] Last Admin: 04/02/21 22:07 Dose: 1 each Documented by: Metformin 1000mg Tab (Own Med) 1 each PO BIDMEALS [facility] Last Admin: 04/03/21 06:41 Dose: Not Given Documented by: Discontinued Medications Amantadine HCl (Amantadine 100 Mg Cap) 100 mg PO BID [facility] Last Admin: 04/01/21 22:16 Dose: 100 mg Documented by: Amantadine HCl (Amantadine 100 Mg Cap) 100 mg PO BID@0800,1700 [facility] Last Admin: 04/02/21 17:49 Dose: 100 mg Documented by: Carbidopa/Levodopa (Carbidopa/Levodopa 25-100 Mg Tab.Er) 2 tab PO BEDTIME [facility] Hydromorphone HCl (Hydromorphone 1 Mg/Ml Syringe) 1 mg IVPUSH ONETIME ONE Stop: 03/31/21 22:33 Last Admin: 03/31/21 23:03 Dose: 1 mg Documented by: Hydromorphone HCl (Hydromorphone 1 Mg/Ml Syringe) 1 mg IVPUSH ONETIME ONE Stop: 04/01/21 07:22 Last Admin: 04/01/21 07:37 Dose: 1 mg Documented by: Magnesium Sulfate 2 gm/ Premix 50 mls @ 25 mls/hr IV ONETIME ONE Stop: 04/02/21 09:40 Last Admin: 04/02/21 08:44 Dose: 25 mls/hr Documented by: Losartan Potassium (Losartan 25 Mg Tab) 25 mg PO DAILY [facility] Losartan Potassium (Losartan 25 Mg Tab) 25 mg PO DAILY@0800 [facility] Last Admin: 04/02/21 07:49 Dose: 25 mg Documented by: Metformin HCl (Metformin 500 Mg Tab) 1,000 mg PO BIDMEALS [facility] Last Admin: 04/02/21 17:46 Dose: 1,000 mg Documented by: Carbamazepine Xr 100 (Mg Tab Own Med) 100 mg PO BID [facility] Carbamazepine Er 400 (Mg Tab Own Med) 400 mg PO BID [facility] Carbidopa/Levodopa 25-250mg Tab Own Med 1 tab PO TID [facility]
[2021-04-03] MEDS ORDERED: Lidocaine 1% 4 ML ONE (10:25)
[2021-04-03] MEDS ORDERED: Propofol 200 MG/20 ML SDV ONE ×2 (10:25→10:26)
[2021-04-03] MEDS ORDERED: ceFAZolin 1 GM Vial ONE (10:25)
--- NOTE | 2021-04-03 10:33 | PCM.SN.2 ---
Time Documentation #1 Interpretation EKG Date: 04/03/21 Rhythm: NSR [place]: Normal P-Wave: Present QRS: Normal ST-T: Normal
[2021-04-03] MEDS ORDERED: Bupivacaine 0.25% 10 ML SDV ONE (11:17)
[2021-04-03] MEDS: ROTIGOTINE 8 MG TOP SCH (11:19)
[2021-04-03] MEDS ORDERED: Ondansetron 4 MG/2 ML SDV ONE (12:01)
[2021-04-03] MEDS ORDERED: Lactated Ringers 1,000 ML ONE (12:02)
--- NOTE | 2021-04-03 13:59 | CR ---
Right hip: 7 fluoroscopic spot views were obtained of the right hip utilizing C-arm device. Comparison: Prior right hip study of 03/31/21. Study shows placement of intramedullary merrill and compression screw across previously noted intertrochanteric fracture. Fluoroscopy time is given as 136.8 seconds. Impression: 1. Procedural study as described above. Diagnostic code #2
[2021-04-03] MEDS ORDERED: Ondansetron 4 MG/2 ML SDV IVPUSH PRN (14:01)
[2021-04-03] MEDS ORDERED: HYDROmorphone 0.5 MG/0.5 ML Syringe IVPUSH PRN (14:01)
[2021-04-03] MEDS ORDERED: fentaNYL 100 MCG/2 ML SDV IVPUSH PRN (14:01)
--- NOTE | 2021-04-03 14:01 | PCM.POSTAN ---
POST ANESTHESIA ASSESSMENT - MENTAL STATUS Mental Status: Confused - VITAL SIGNS Vital Signs: Last Vital Signs 1351 89/63 94% 81 16 97.3 Temp 36.8 C 04/03/21 11:24 Pulse 73 04/03/21 11:24 Resp 12 04/03/21 11:24 BP 127/91 H 04/03/21 11:24 Pulse Ox 95 04/03/21 11:24 - RESPIRATORY Respiratory Status: Respiratory Rate WNL, Airway Patent, O2 Saturation Stable, Supplemental Oxygen - CARDIOVASCULAR CV Status: Pulse Rate WNL, Blood Pressure Stable - GASTROINTESTINAL GI Status: No Symptoms - POST OP HYDRATION Hydration Status: Adequate & Stable
[2021-04-03] MEDS: HYDROmorphone 0.5 MG/0.5 ML Syringe IVPUSH PRN ×2 (16:33→19:21)
[2021-04-03] MEDS: ceFAZolin 2 GM in Premix Bag 1 BAG IV SCH (18:37)
[2021-04-04] MEDS: ceFAZolin 2 GM in Premix Bag 1 BAG IV SCH ×2 (02:32→11:27)
[2021-04-04] MEDS: Acetaminophen 325 MG Tab PO PRN ×3 (02:35→22:31)
[2021-04-04] MEDS: Lactated Ringers 1,000 ML IV SCH (02:53)
[2021-04-04] MEDS: Docusate Sodium 100 MG Cap PO PRN (06:55)
[2021-04-04] MEDS: CARBIDOPA PO SCH ×4 (06:57→22:19)
[2021-04-04] MEDS: LEVODOPA PO SCH ×4 (06:57→22:19)
--- NOTE | 2021-04-04 07:08 | PCM.PN ---
<Amilcar Rajan - Last Filed: 04/04/21 12:46> - General Info Date of Service: 04/04/21 Admission Dx/Problem (Free Text): Admission Diagnosis/Problem Admission Diagnosis/Problem Hip fracture, intertrochanteric Subjective Update: 80-year-old male who is postop day 1 of right femur intramedullary nailing hip gamma. Patient pain was managed with Tylenol overnight however this morning before working with therapies he did receive an oxycodone he has been having some confusion which is worse with narcotics. Per the patient's this is his baseline when utilizing narcotic pain medications. He has been receiving a half a liter of oxygen. Physical therapy and occupational therapy were in to see him and are recommending SNF placement. is on board with this and filling out applications. Overall patient has been doing okay. We will stop Lovenox and start a daily 325 mg aspirin. Patient is a rather significant fall risk. Patient did have an episode of severe confusion overnight and did pull out his Donis catheter and IV. He has been having some blood in his urine but per nursing no clots. Labs show that he is somewhat dry and we will give an IV fluid bolus has his output has been somewhat poor. Nursing has been monitoring patient's output and utilizing bladder scanning to ensure patient does not have any obstruction due to clotting secondary to trauma from removing his Donis catheter. Patient is currently alert, pleasant, and confused. Labs today show hemoglobin that is down to 9.0. Platelets are 143,000. Neutrophils are 76.6%. Sodium is 138. Potassium 4.9. Chloride 106. Carbon dioxide 26. Anion gap is 10.9. BUN is 30. Creatinine 2.0. GFR is 32. Opvwf-tp-lned glucose has been between 108 and 160. Magnesium is 1.8. Total bilirubin 0.5. AST is 18, ALT 8, alkaline phosphatase 69. Albumin is 2.7. We will give him 1/2 L fluid bolus and start him on IV fluids for remaining 1 L. No history of any heart failure. Discharge will be pending placement. Functional Status: Reports: Pain Controlled, Tolerating Diet, Ambulating, Urinating, Incentive Spirometry. Denies: New Symptoms - Review of Systems General: Reports: No Symptoms, Weakness, Fatigue. Denies: Fever, Malaise, Chills HEENT: Reports: No Symptoms. Denies: Headaches, Sore Throat Pulmonary: Reports: No Symptoms. Denies: Shortness of Breath, Cough, Sputum, Wheezing Cardiovascular: Reports: No Symptoms. Denies: Chest Pain, Palpitations, Dyspnea on Exertion, Edema Gastrointestinal: Reports: No Symptoms. Denies: Abdominal Pain, Constipation, Diarrhea, Nausea, Vomiting Genitourinary: Reports: Hematuria. Denies: Pain Musculoskeletal: Reports: Leg Pain (Right) Skin: Reports: No Symptoms. Denies: Cyanosis Neurological: Reports: Confusion, Pre-Existing Deficit (Parkinson's disease), Tremors, Difficulty Walking, Weakness, Gait Disturbance. Denies: Dizziness, Headache, Numbness, Seizure, Syncope, Tingling Psychiatric: Reports: No Symptoms - Patient Data Vitals - Most Recent: Last Vital Signs Temp 98.8 F 04/04/21 02:13 Pulse 90 04/04/21 02:13 Resp 16 04/04/21 02:13 BP 111/52 L 04/04/21 02:13 Pulse Ox 99 04/04/21 02:13 Weight - Most Recent: 188 lb 14.4 oz I&O - Last 24 Hours: Intake & Output 04/03/21 04/04/21 04/04/21 22:59 06:59 14:59 Intake Total 300 1010 Output Total 425 650 Balance -125 360 Lab Results Last 24 Hours: Laboratory Results - last 24 hr 04/03/21 04/03/21 04/03/21 Range/Units 08:30 08:30 08:30 WBC 6.41 (4.23-9.07) K/mm3 RBC 2.83 L (4.63-6.08) M/mm3 Hgb 9.6 L (13.7-17.5) gm/dl Hct 29.5 L (40.1-51.0) % MCV 104.2 H (79.0-92.2) fl MCH 33.9 H (25.7-32.2) pg MCHC 32.5 (32.2-35.5) g/dl RDW Std Deviation 44.9 H (35.1-43.9) fL Plt Count 154 L (163-337) K/mm3 MPV 9.6 (9.4-12.3) fl Neut % (Auto) 72.1 H (34.0-67.9) % Lymph % (Auto) 15.3 L (21.8-53.1) % [place] % (Auto) 10.5 (5.3-12.2) % Eos % (Auto) 1.4 (0.8-7.0) Baso % (Auto) 0.2 (0.1-1.2) % Neut # (Auto) 4.63 (1.78-5.38) K/mm3 Lymph # (Auto) 0.98 L (1.32-3.57) K/mm3 [place] # (Auto) 0.67 (0.30-0.82) K/mm3 Eos # (Auto) 0.09 (0.04-0.54) K/mm3 Baso # (Auto) 0.01 (0.01-0.08) K/mm3 Sodium 138 (136-145) mEq/L Potassium 4.8 (3.5-5.1) mEq/L Chloride 106 (98-107) mEq/L Carbon Dioxide 24 (21-32) mEq/L Anion Gap 12.8 (5-15) BUN 24 H (7-18) mg/dL Creatinine 1.3 (0.7-1.3) mg/dL Est Cr Clr Drug Dosing 47.57 mL/min Estimated GFR (MDRD) 53 (>60) mL/min BUN/Creatinine Ratio 18.5 H (14-18) Glucose 123 H (70-99) mg/dL POC Glucose (70-99) mg/dL Calcium 8.2 L (8.5-10.1) mg/dL Magnesium 1.9 (1.8-2.4) mg/dL Blood Type A POSITIVE Gel Antibody Screen Negative 04/03/21 04/03/21 Range/Units 16:58 22:19 WBC (4.23-9.07) K/mm3 RBC (4.63-6.08) M/mm3 Hgb (13.7-17.5) gm/dl Hct (40.1-51.0) % MCV (79.0-92.2) fl MCH (25.7-32.2) pg MCHC (32.2-35.5) g/dl RDW Std Deviation (35.1-43.9) fL Plt Count (163-337) K/mm3 MPV (9.4-12.3) fl Neut % (Auto) (34.0-67.9) % Lymph % (Auto) (21.8-53.1) % [place] % (Auto) (5.3-12.2) % Eos % (Auto) (0.8-7.0) Baso % (Auto) (0.1-1.2) % Neut # (Auto) (1.78-5.38) K/mm3 Lymph # (Auto) (1.32-3.57) K/mm3 [place] # (Auto) (0.30-0.82) K/mm3 Eos # (Auto) (0.04-0.54) K/mm3 Baso # (Auto) (0.01-0.08) K/mm3 Sodium (136-145) mEq/L Potassium (3.5-5.1) mEq/L Chloride (98-107) mEq/L Carbon Dioxide (21-32) mEq/L Anion Gap (5-15) BUN (7-18) mg/dL Creatinine (0.7-1.3) mg/dL Est Cr Clr Drug Dosing mL/min Estimated GFR (MDRD) (>60) mL/min BUN/Creatinine Ratio (14-18) Glucose (70-99) mg/dL POC Glucose 113 H 160 H (70-99) mg/dL Calcium (8.5-10.1) mg/dL Magnesium (1.8-2.4) mg/dL Blood Type Gel Antibody Screen Med Orders - Current: Current Medications Acetaminophen (Acetaminophen 325 Mg Tab) 650 mg PO Q4H PRN PRN Reason: Pain (Mild 1-3)/fever Last Admin: 04/04/21 06:54 Dose: 650 mg Documented by: Amantadine HCl (Amantadine 100 Mg Cap Own Med) 100 mg PO BID@0800,1700 [facility] Last Admin: 04/03/21 17:19 Dose: 100 mg Documented by: Docusate Sodium (Docusate Sodium 100 Mg Cap) 100 mg PO Q12H PRN PRN Reason: Constipation Last Admin: 04/04/21 06:55 Dose: 100 mg Documented by: Enoxaparin Sodium (Enoxaparin 40 Mg/0.4 Ml Syringe) 40 mg SUBCUT DAILY [facility] Last Admin: 04/03/21 09:31 Dose: Not Given Documented by: Hydromorphone HCl (Hydromorphone 0.5 Mg/0.5 Ml Syringe) 0.5 mg IVPUSH Q2H PRN PRN Reason: Pain (severe 7-10) Last Admin: 04/03/21 19:21 Dose: 0.5 mg Documented by: Lactated Ringer's (Ringers, Lactated) 1,000 mls @ 75 mls/hr IV ASDIRECTED [facility] Last Admin: 04/04/21 02:53 Dose: 75 mls/hr Documented by: Cefazolin Sodium/Dextrose 2 gm (/ Premix) 50 mls @ 100 mls/hr IV Q8H [facility] Stop: 04/04/21 10:59 Last Admin: 04/04/21 02:32 Dose: 100 mls/hr Documented by: Insulin Human Lispro (Insulin Lispro 100 Unit/Ml 10 Ml Vial) 0 unit SUBCUT QIDACANDBED [facility]; Protocol Last Admin: 04/03/21 22:30 Dose: Not Given Documented by: Losartan Potassium (Losartan 25 Mg Tab Own Med) 25 mg PO DAILY@0800 [facility] Last Admin: 04/03/21 08:18 Dose: Not Given Documented by: Carbamazepine Xr 100 (Mg Tab Own Med) 100 mg PO BID@0800,1700 [facility] Last Admin: 04/03/21 17:20 Dose: 100 mg Documented by: Carbidopa/Levodopa 25-250mg Tab Own Med 1 tab PO TID@0700,1300,1900 [facility] Last Admin: 04/04/21 06:57 Dose: 1 tab Documented by: Carbamazepine Er 400 (Mg Tab Own Med) 400 mg PO BID@0800,1700 [facility] Last Admin: 04/03/21 17:20 Dose: 400 mg Documented by: Ondansetron HCl (Ondansetron 4 Mg/2 Ml Sdv) 4 mg IV Q6H PRN PRN Reason: Nausea/Vomiting Oxycodone HCl (Oxycodone 5 Mg Tab) 5 mg PO Q4H PRN PRN Reason: Pain (moderate 4-6) Last Admin: 04/02/21 22:04 Dose: 5 mg Documented by: Rotigotine [Neupro . (33 Mg/Hr] 8 Mg Patch) 0 each TOP DAILY [facility] Last Admin: 04/03/21 11:19 Dose: Not Given Documented by: Carbidopa/Levodopa Er 50-200 Mg Tab Own Med 1 each PO BEDTIME [facility] Last Admin: 04/03/21 22:11 Dose: 1 each Documented by: Metformin 1000mg Tab (Own Med) 1 each PO BIDMEALS [facility] Last Admin: 04/03/21 17:20 Dose: 1 each Documented by: Discontinued Medications Amantadine HCl (Amantadine 100 Mg Cap) 100 mg PO BID [facility] Last Admin: 04/01/21 22:16 Dose: 100 mg Documented by: Amantadine HCl (Amantadine 100 Mg Cap) 100 mg PO BID@0800,1700 [facility] Last Admin: 04/02/21 17:49 Dose: 100 mg Documented by: Bupivacaine HCl (Bupivacaine 0.25% 10 Ml Sdv) Confirm Administered Dose 30 ml .ROUTE .STK-MED ONE Stop: 04/03/21 11:18 Last Admin: 04/03/21 13:35 Dose: 10 ml Documented by: Carbidopa/Levodopa (Carbidopa/Levodopa 25-100 Mg Tab.Er) 2 tab PO BEDTIME [facility] Cefazolin Sodium (Cefazolin 1 Gm Vial) Confirm Administered Dose 2 gm .ROUTE .STK-MED ONE Stop: 04/03/21 10:26 Fentanyl (Fentanyl 100 Mcg/2 Ml Sdv) 50 mcg IVPUSH Q5M PRN PRN Reason: Pain Stop: 04/03/21 18:00 Hydromorphone HCl (Hydromorphone 1 Mg/Ml Syringe) 1 mg IVPUSH ONETIME ONE Stop: 03/31/21 22:33 Last Admin: 03/31/21 23:03 Dose: 1 mg Documented by: Hydromorphone HCl (Hydromorphone 1 Mg/Ml Syringe) 1 mg IVPUSH ONETIME ONE Stop: 04/01/21 07:22 Last Admin: 04/01/21 07:37 Dose: 1 mg Documented by: Hydromorphone HCl (Hydromorphone 0.5 Mg/0.5 Ml Syringe) 0.5 mg IVPUSH Q10M PRN PRN Reason: Pain (severe 7-10) Stop: 04/03/21 16:00 Magnesium Sulfate 2 gm/ Premix 50 mls @ 25 mls/hr IV ONETIME ONE Stop: 04/02/21 09:40 Last Admin: 04/02/21 08:44 Dose: 25 mls/hr Documented by: Lidocaine HCl (Xylocaine-Mpf 1%) Confirm Administered Dose 4 mls @ as directed .ROUTE .STK-MED ONE Stop: 04/03/21 10:26 Lactated Ringer's (Ringers, Lactated) Confirm Administered Dose 1,000 mls @ as directed .ROUTE .STK-MED ONE Stop: 04/03/21 12:03 Losartan Potassium (Losartan 25 Mg Tab) 25 mg PO DAILY [facility] Losartan Potassium (Losartan 25 Mg Tab) 25 mg PO DAILY@0800 [facility] Last Admin: 04/02/21 07:49 Dose: 25 mg Documented by: Metformin HCl (Metformin 500 Mg Tab) 1,000 mg PO BIDMEALS [facility] Last Admin: 04/02/21 17:46 Dose: 1,000 mg Documented by: Miscellaneous Medication (Phenylephrine Hcl In 0.9% Nacl 1 Mg/10 Ml Syringe) Confirm Administered Dose 1 mg .ROUTE .STK-MED ONE Stop: 04/03/21 12:31 Carbamazepine Xr 100 (Mg Tab Own Med) 100 mg PO BID [facility] Carbamazepine Er 400 (Mg Tab Own Med) 400 mg PO BID [facility] Carbidopa/Levodopa 25-250mg Tab Own Med 1 tab PO TID [facility] Ondansetron HCl (Ondansetron 4 Mg/2 Ml Sdv) Confirm Administered Dose 4 mg .ROUTE .STK-MED ONE Stop: 04/03/21 12:02 Ondansetron HCl (Ondansetron 4 Mg/2 Ml Sdv) 4 mg IVPUSH ONETIME PRN PRN Reason: Nausea/Vomiting Stop: 04/03/21 18:00 Propofol (Propofol 200 Mg/20 Ml Sdv) Confirm Administered Dose 200 mg .ROUTE .STK-MED ONE Stop: 04/03/21 10:26 Propofol (Propofol 200 Mg/20 Ml Sdv) Confirm Administered Dose 200 mg .ROUTE .STK-MED ONE Stop: 04/03/21 10:27 - Exam Quality Assessment: Supplemental Oxygen (1/2 L), DVT Prophylaxis. No: Urine Catheter Urinary Catheter Total Time: 0Days 12Hours General: Alert, Cooperative, No Acute Distress. No: Oriented HEENT: Pupils Equal, Pupils Reactive. No: Mucous Membr. Moist/Melia (Dry) Neck: Supple, Trachea Midline Lungs: Clear to Auscultation, Normal Respiratory Effort Cardiovascular: Regular Rate, Regular Rhythm GI/Abdominal Exam: Normal Bowel Sounds, Soft, Non-Tender, No Distention (Male) Exam: Deferred Back Exam: Normal Inspection, Full Range of Motion Extremities: Normal Inspection, Normal Range of Motion, No Pedal Edema, Leg Pain (Right) Peripheral Pulses: 2+: Radial (L), Radial (R), Dorsalis Pedis (L), Dorsalis Pedis (R) Skin: Warm, Dry, Intact Neurological: No New Focal Deficit Psy/Mental Status: Alert - Patient Data Lab Results Last 24 hrs: Laboratory Results - last 24 hr 04/03/21 04/03/21 04/03/21 Range/Units 08:30 08:30 08:30 WBC 6.41 (4.23-9.07) K/mm3 RBC 2.83 L (4.63-6.08) M/mm3 Hgb 9.6 L (13.7-17.5) gm/dl Hct 29.5 L (40.1-51.0) % MCV 104.2 H (79.0-92.2) fl MCH 33.9 H (25.7-32.2) pg MCHC 32.5 (32.2-35.5) g/dl RDW Std Deviation 44.9 H (35.1-43.9) fL Plt Count 154 L (163-337) K/mm3 MPV 9.6 (9.4-12.3) fl Neut % (Auto) 72.1 H (34.0-67.9) % Lymph % (Auto) 15.3 L (21.8-53.1) % [place] % (Auto) 10.5 (5.3-12.2) % Eos % (Auto) 1.4 (0.8-7.0) Baso % (Auto) 0.2 (0.1-1.2) % Neut # (Auto) 4.63 (1.78-5.38) K/mm3 Lymph # (Auto) 0.98 L (1.32-3.57) K/mm3 [place] # (Auto) 0.67 (0.30-0.82) K/mm3 Eos # (Auto) 0.09 (0.04-0.54) K/mm3 Baso # (Auto) 0.01 (0.01-0.08) K/mm3 Sodium 138 (136-145) mEq/L Potassium 4.8 (3.5-5.1) mEq/L Chloride 106 (98-107) mEq/L Carbon Dioxide 24 (21-32) mEq/L Anion Gap 12.8 (5-15) BUN 24 H (7-18) mg/dL Creatinine 1.3 (0.7-1.3) mg/dL Est Cr Clr Drug Dosing 47.57 mL/min Estimated GFR (MDRD) 53 (>60) mL/min BUN/Creatinine Ratio 18.5 H (14-18) Glucose 123 H (70-99) mg/dL POC Glucose (70-99) mg/dL Calcium 8.2 L (8.5-10.1) mg/dL Magnesium 1.9 (1.8-2.4) mg/dL Blood Type A POSITIVE Gel Antibody Screen Negative 04/03/21 04/03/21 Range/Units 16:58 22:19 WBC (4.23-9.07) K/mm3 RBC (4.63-6.08) M/mm3 Hgb (13.7-17.5) gm/dl Hct (40.1-51.0) % MCV (79.0-92.2) fl MCH (25.7-32.2) pg MCHC (32.2-35.5) g/dl RDW Std Deviation (35.1-43.9) fL Plt Count (163-337) K/mm3 MPV (9.4-12.3) fl Neut % (Auto) (34.0-67.9) % Lymph % (Auto) (21.8-53.1) % [place] % (Auto) (5.3-12.2) % Eos % (Auto) (0.8-7.0) Baso % (Auto) (0.1-1.2) % Neut # (Auto) (1.78-5.38) K/mm3 Lymph # (Auto) (1.32-3.57) K/mm3 [place] # (Auto) (0.30-0.82) K/mm3 Eos # (Auto) (0.04-0.54) K/mm3 Baso # (Auto) (0.01-0.08) K/mm3 Sodium (136-145) mEq/L Potassium (3.5-5.1) mEq/L Chloride (98-107) mEq/L Carbon Dioxide (21-32) mEq/L Anion Gap (5-15) BUN (7-18) mg/dL Creatinine (0.7-1.3) mg/dL Est Cr Clr Drug Dosing mL/min Estimated GFR (MDRD) (>60) mL/min BUN/Creatinine Ratio (14-18) Glucose (70-99) mg/dL POC Glucose 113 H 160 H (70-99) mg/dL Calcium (8.5-10.1) mg/dL Magnesium (1.8-2.4) mg/dL Blood Type Gel Antibody Screen Result Diagrams: 04/04/21 06:29 04/04/21 06:29 Sepsis Event Note - Evaluation Sepsis Screening Result: No Definite Risk - Focused Exam Vital Signs: Vital Signs Temp Pulse Resp BP Pulse Ox 04/04/21 02:13 98.8 F 90 16 111/52 L 99 04/03/21 22:09 99.0 F 104 H 14 108/65 99 04/03/21 22:05 99.0 F 103 H 14 108/65 98 04/03/21 21:01 103 H 99 - Problem List & Annotations (1) Intertrochanteric fracture of right femur SNOMED Code(s): 082492806, 78878811906810730 Code(s): S72.141A - DISPLACED INTERTROCHANTERIC FRACTURE OF RIGHT FEMUR, INIT Status: Acute Priority: High Current Visit: Yes Qualifiers: Encounter type: initial encounter Fracture type: closed Fracture alignment: nondisplaced Qualified Code(s): S72.144A - Nondisplaced intertrochanteric fracture of right femur, initial encounter for closed fracture (2) Hypertension SNOMED Code(s): 26738259 Code(s): I10 - ESSENTIAL (PRIMARY) HYPERTENSION Status: Chronic Priority: Medium Current Visit: Yes Qualifiers: Hypertension type: unspecified Qualified Code(s): I10 - Essential (primary) hypertension (3) Parkinson disease SNOMED Code(s): 58797967 Code(s): G20 - PARKINSON'S DISEASE Status: Chronic Priority: Medium Cu rrent Visit: No (4) Type II diabetes mellitus SNOMED Code(s): 85131408 Code(s): E11.9 - TYPE 2 DIABETES MELLITUS WITHOUT COMPLICATIONS Status: Chronic Priority: Medium Current Visit: No Qualifiers: Diabetes mellitus skilled nursing insulin use: without ferry terminal agent use Diabetes mellitus complication status: with unspecified complications (5) Acute kidney injury SNOMED Code(s): 64045024, 20143920 Code(s): N17.9 - ACUTE KIDNEY FAILURE, UNSPECIFIED Status: Acute Priority: Medium Current Visit: Yes - Problem List Review Problem List Initiated/Reviewed/Updated: Yes - My Orders Last 24 Hours: My Active Orders 04/03/21 11:37 Consult to Case Management/Train Inspector [CONS] Routine Consult to Occupational Therapy [OT Evaluation and Treatment] [CONS] Routine PT Evaluation and Treatment [CONS] Routine 04/03/21 11:38 RT Incentive Spirometry [RC] ASDIRECTED 04/04/21 06:29 CBC WITH AUTO DIFF [HEME] AM CMP [COMPREHENSIVE METABOLIC PN,CMP] [CHEM] AM MAGNESIUM [CHEM] AM 04/05/21 05:11 CBC WITH AUTO DIFF [HEME] AM CMP [COMPREHENSIVE METABOLIC PN,CMP] [CHEM] AM MAGNESIUM [CHEM] AM 04/06/21 05:11 CBC WITH AUTO DIFF [HEME] AM CMP [COMPREHENSIVE METABOLIC PN,CMP] [CHEM] AM MAGNESIUM [CHEM] AM 04/07/21 05:11 CBC WITH AUTO DIFF [HEME] AM MAGNESIUM [CHEM] AM - Plan Plan:: 73-year-old male with Parkinson's disease tripped and causing an intertrochanteric fracture within the right hip. Intratrochanteric fracture of the right hip * Admitted for medical management waiting for surgery * Dr. Nicholas consulted -status post day 1 of right intramedullary hip gamma nailing. * Will need pain management * Neurovascularly intact * Noted confusion from pain medications this visit ( reports history of this in the past as well) * Will require SNF placement Parkinson's disease * Up with assistance * Will need physical therapy * Continue home meds Hypertension/diabetes * Stop oral hypoglycemics * Continue hypertensive medications except ROSIE/ARB until after surgery Acute renal injury * BUN 30, Creatinine 2.9, GFR 32 * Appears to have some baseline renal dysfunction per prior labs Plan * Admit to medical floor * Stop oxycodone and decrease to [place] Q4HR PRN for pain * Dilaudid 0.5 mg IV every 2 hours as needed pain * Sliding-scale insulin, fingerstick blood sugars 4 times daily * Continue home Parkinson's meds * IS * O2 as needed * 500ml LR fluid bolus now and then 100ml/hr for 1 LR bag * PT/OT * CM/SW consult - will require SNF rehab stay * NPO until post-operatively * VTE prophylaxis: 325mg daily ASA (high fall risk - discussed with Dr. Moore, attending hospitalist) * CODE STATUS: Full code <Yuridia Moore - Last Filed: 04/04/21 14:44> - Patient Data Vitals - Most Recent: Last Vital Signs Temp 98.8 F 04/04/21 13:51 Pulse 91 04/04/21 13:52 Resp 16 04/04/21 13:51 BP 108/37 L 04/04/21 13:51 Pulse Ox 89 L 04/04/21 13:52 I&O - Last 24 Hours: Intake & Output 04/03/21 04/04/21 04/04/21 22:59 06:59 14:59 Intake Total 540 1010 Output Total 425 650 175 Balance 115 360 -175 Lab Results Last 24 Hours: Laboratory Results - last 24 hr 04/03/21 04/03/21 04/04/21 Range/Units 16:58 22:19 06:29 WBC 7.69 (4.23-9.07) K/mm3 RBC 2.63 L (4.63-6.08) M/mm3 Hgb 9.0 L (13.7-17.5) gm/dl Hct 27.9 L (40.1-51.0) % MCV 106.1 H (79.0-92.2) fl MCH 34.2 H (25.7-32.2) pg MCHC 32.3 (32.2-35.5) g/dl RDW Std Deviation 45.1 H (35.1-43.9) fL Plt Count 143 L (163-337) K/mm3 MPV 9.6 (9.4-12.3) fl Neut % (Auto) 76.6 H (34.0-67.9) % Lymph % (Auto) 10.9 L (21.8-53.1) % [place] % (Auto) 9.5 (5.3-12.2) % Eos % (Auto) 2.2 (0.8-7.0) Baso % (Auto) 0.1 (0.1-1.2) % Neut # (Auto) 5.89 H (1.78-5.38) K/mm3 Lymph # (Auto) 0.84 L (1.32-3.57) K/mm3 [place] # (Auto) 0.73 (0.30-0.82) K/mm3 Eos # (Auto) 0.17 (0.04-0.54) K/mm3 Baso # (Auto) 0.01 (0.01-0.08) K/mm3 Sodium (136-145) mEq/L Potassium (3.5-5.1) mEq/L Chloride (98-107) mEq/L Carbon Dioxide (21-32) mEq/L Anion Gap (5-15) BUN (7-18) mg/dL Creatinine (0.7-1.3) mg/dL Est Cr Clr Drug Dosing mL/min Estimated GFR (MDRD) (>60) mL/min BUN/Creatinine Ratio (14-18) Glucose (70-99) mg/dL POC Glucose 113 H 160 H (70-99) mg/dL Calcium (8.5-10.1) mg/dL Magnesium (1.8-2.4) mg/dL Total Bilirubin (0.2-1.0) mg/dL AST (15-37) U/L ALT (16-63) U/L Alkaline Phosphatase (46-116) U/L Total Protein (6.4-8.2) g/dl Albumin (3.4-5.0) g/dl Globulin gm/dL Albumin/Globulin Ratio (1-2) 04/04/21 04/04/21 04/04/21 Range/Units 06:29 07:36 11:54 WBC (4.23-9.07) K/mm3 RBC (4.63-6.08) M/mm3 Hgb (13.7-17.5) gm/dl Hct (40.1-51.0) % MCV (79.0-92.2) fl MCH (25.7-32.2) pg MCHC (32.2-35.5) g/dl RDW Std Deviation (35.1-43.9) fL Plt Count (163-337) K/mm3 MPV (9.4-12.3) fl Neut % (Auto) (34.0-67.9) % Lymph % (Auto) (21.8-53.1) % [place] % (Auto) (5.3-12.2) % Eos % (Auto) (0.8-7.0) Baso % (Auto) (0.1-1.2) % Neut # (Auto) (1.78-5.38) K/mm3 Lymph # (Auto) (1.32-3.57) K/mm3 [place] # (Auto) (0.30-0.82) K/mm3 Eos # (Auto) (0.04-0.54) K/mm3 Baso # (Auto) (0.01-0.08) K/mm3 Sodium 138 (136-145) mEq/L Potassium 4.9 (3.5-5.1) mEq/L Chloride 106 (98-107) mEq/L Carbon Dioxide 26 (21-32) mEq/L Anion Gap 10.9 (5-15) BUN 30 H (7-18) mg/dL Creatinine 2.0 H (0.7-1.3) mg/dL Est Cr Clr Drug Dosing 30.92 mL/min Estimated GFR (MDRD) 32 (>60) mL/min BUN/Creatinine Ratio 15.0 (14-18) Glucose 152 H (70-99) mg/dL POC Glucose 141 H 108 H (70-99) mg/dL Calcium 8.2 L (8.5-10.1) mg/dL Magnesium 1.8 (1.8-2.4) mg/dL Total Bilirubin 0.5 (0.2-1.0) mg/dL AST 18 (15-37) U/L ALT 8 L (16-63) U/L Alkaline Phosphatase 69 (46-116) U/L Total Protein 6.2 L (6.4-8.2) g/dl Albumin 2.7 L (3.4-5.0) g/dl Globulin 3.5 gm/dL Albumin/Globulin Ratio 0.8 L (1-2) Med Orders - Current: Current Medications Acetaminophen (Acetaminophen 325 Mg Tab) 650 mg PO Q4H PRN PRN Reason: Pain (Mild 1-3)/fever Last Admin: 04/04/21 06:54 Dose: 650 mg Documented by: Hydrocodone Bitart/Acetaminophen (Acetaminophen/Hydrocodone 325-5 Mg Tab) 1 tab PO Q4H PRN PRN Reason: Pain (moderate 4-6) Last Admin: 04/04/21 14:04 Dose: 1 tab Documented by: Amantadine HCl (Amantadine 100 Mg Cap Own Med) 100 mg PO BID@0800,1700 [facility] Last Admin: 04/04/21 08:00 Dose: 100 mg Documented by: Aspirin (Aspirin 325 Mg Tab.Ec) 325 mg PO DAILY [facility] Stop: 05/08/21 09:01 Last Admin: 04/04/21 10:57 Dose: 325 mg Documented by: Docusate Sodium (Docusate Sodium 100 Mg Cap) 100 mg PO Q12H PRN PRN Reason: Constipation Last Admin: 04/04/21 06:55 Dose: 100 mg Documented by: Hydromorphone HCl (Hydromorphone 0.5 Mg/0.5 Ml Syringe) 0.5 mg IVPUSH Q2H PRN PRN Reason: Pain (severe 7-10) Last Admin: 04/03/21 19:21 Dose: 0.5 mg Documented by: Lactated Ringer's (Ringers, Lactated) 1,000 mls @ 60 mls/hr IV ASDIRECTED [facility] Stop: 04/05/21 02:39 Last Admin: 04/04/21 10:56 Dose: 60 mls/hr Documented by: Insulin Human Lispro (Insulin Lispro 100 Unit/Ml 10 Ml Vial) 0 unit SUBCUT QIDACANDBED [facility]; Protocol Last Admin: 04/04/21 14:07 Dose: Not Given Documented by: Losartan Potassium (Losartan 25 Mg Tab Own Med) 25 mg PO DAILY@0800 [facility] Last Admin: 04/04/21 08:00 Dose: 25 mg Documented by: Carbamazepine Xr 100 (Mg Tab Own Med) 100 mg PO BID@0800,1700 [facility] Last Admin: 04/04/21 08:00 Dose: 100 mg Documented by: Carbidopa/Levodopa 25-250mg Tab Own Med 1 tab PO TID@0700,1300,1900 [facility] Last Admin: 04/04/21 06:57 Dose: 1 tab Documented by: Carbamazepine Er 400 (Mg Tab Own Med) 400 mg PO BID@0800,1700 [facility] Last Admin: 04/04/21 08:00 Dose: 400 mg Documented by: Ondansetron HCl (Ondansetron 4 Mg/2 Ml Sdv) 4 mg IV Q6H PRN PRN Reason: Nausea/Vomiting Rotigotine [Neupro . (33 Mg/Hr] 8 Mg Patch) 0 each TOP DAILY [facility] Last Admin: 04/04/21 08:00 Dose: 1 each Documented by: Carbidopa/Levodopa Er 50-200 Mg Tab Own Med 1 each PO BEDTIME [facility] Last Admin: 04/03/21 22:11 Dose: 1 each Documented by: Metformin 1000mg Tab (Own Med) 1 each PO BIDMEALS [facility] Last Admin: 04/04/21 08:00 Dose: 1 each Documented by: Discontinued Medications Amantadine HCl (Amantadine 100 Mg Cap) 100 mg PO BID [facility] Last Admin: 04/01/21 22:16 Dose: 100 mg Documented by: Amantadine HCl (Amantadine 100 Mg Cap) 100 mg PO BID@0800,1700 [facility] Last Admin: 04/02/21 17:49 Dose: 100 mg Documented by: Bupivacaine HCl (Bupivacaine 0.25% 10 Ml Sdv) Confirm Administered Dose 30 ml .ROUTE .STK-MED ONE Stop: 04/03/21 11:18 Last Admin: 04/03/21 13:35 Dose: 10 ml Documented by: Carbidopa/Levodopa (Carbidopa/Levodopa 25-100 Mg Tab.Er) 2 tab PO BEDTIME [facility] Cefazolin Sodium (Cefazolin 1 Gm Vial) Confirm Administered Dose 2 gm .ROUTE .STK-MED ONE Stop: 04/03/21 10:26 Enoxaparin Sodium (Enoxaparin 40 Mg/0.4 Ml Syringe) 40 mg SUBCUT DAILY [facility] Last Admin: 04/04/21 10:56 Dose: Not Given Documented by: Fentanyl (Fentanyl 100 Mcg/2 Ml Sdv) 50 mcg IVPUSH Q5M PRN PRN Reason: Pain Stop: 04/03/21 18:00 Hydromorphone HCl (Hydromorphone 1 Mg/Ml Syringe) 1 mg IVPUSH ONETIME ONE Stop: 03/31/21 22:33 Last Admin: 03/31/21 23:03 Dose: 1 mg Documented by: Hydromorphone HCl (Hydromorphone 1 Mg/Ml Syringe) 1 mg IVPUSH ONETIME ONE Stop: 04/01/21 07:22 Last Admin: 04/01/21 07:37 Dose: 1 mg Documented by: Hydromorphone HCl (Hydromorphone 0.5 Mg/0.5 Ml Syringe) 0.5 mg IVPUSH Q10M PRN PRN Reason: Pain (severe 7-10) Stop: 04/03/21 16:00 Lactated Ringer's (Ringers, Lactated) 1,000 mls @ 75 mls/hr IV ASDIRECTED [facility] Last Admin: 04/04/21 02:53 Dose: 75 mls/hr Documented by: Magnesium Sulfate 2 gm/ Premix 50 mls @ 25 mls/hr IV ONETIME ONE Stop: 04/02/21 09:40 Last Admin: 04/02/21 08:44 Dose: 25 mls/hr Documented by: Lidocaine HCl (Xylocaine-Mpf 1%) Confirm Administered Dose 4 mls @ as directed .ROUTE .STK-MED ONE Stop: 04/03/21 10:26 Lactated Ringer's (Ringers, Lactated) Confirm Administered Dose 1,000 mls @ as directed .ROUTE .STK-MED ONE Stop: 04/03/21 12:03 Cefazolin Sodium/Dextrose 2 gm (/ Premix) 50 mls @ 100 mls/hr IV Q8H [facility] Stop: 04/04/21 10:59 Last Admin: 04/04/21 11:27 Dose: 100 mls/hr Documented by: Lactated Ringer's (Ringers, Lactated) 500 mls @ 999 mls/hr IV .BOLUS ONE Stop: 04/04/21 08:27 Last Admin: 04/04/21 09:37 Dose: 999 mls/hr Documented by: Losartan Potassium (Losartan 25 Mg Tab) 25 mg PO DAILY [facility] Losartan Potassium (Losartan 25 Mg Tab) 25 mg PO DAILY@0800 [facility] Last Admin: 04/02/21 07:49 Dose: 25 mg Documented by: Metformin HCl (Metformin 500 Mg Tab) 1,000 mg PO BIDMEALS [facility] Last Admin: 04/02/21 17:46 Dose: 1,000 mg Documented by: Miscellaneous Medication (Phenylephrine Hcl In 0.9% Nacl 1 Mg/10 Ml Syringe) Confirm Administered Dose 1 mg .ROUTE .STK-MED ONE Stop: 04/03/21 12:31 Carbamazepine Xr 100 (Mg Tab Own Med) 100 mg PO BID [facility] Carbamazepine Er 400 (Mg Tab Own Med) 400 mg PO BID [facility] Carbidopa/Levodopa 25-250mg Tab Own Med 1 tab PO TID [facility] Ondansetron HCl (Ondansetron 4 Mg/2 Ml Sdv) Confirm Administered Dose 4 mg .ROUTE .STK-MED ONE Stop: 04/03/21 12:02 Ondansetron HCl (Ondansetron 4 Mg/2 Ml Sdv) 4 mg IVPUSH ONETIME PRN PRN Reason: Nausea/Vomiting Stop: 04/03/21 18:00 Oxycodone HCl (Oxycodone 5 Mg Tab) 5 mg PO Q4H PRN PRN Reason: Pain (moderate 4-6) Last Admin: 04/04/21 08:17 Dose: 5 mg Documented by: Propofol (Propofol 200 Mg/20 Ml Sdv) Confirm Administered Dose 200 mg .ROUTE .STK-MED ONE Stop: 04/03/21 10:26 Propofol (Propofol 200 Mg/20 Ml Sdv) Confirm Administered Dose 200 mg .ROUTE .STK-MED ONE Stop: 04/03/21 10:27 - Patient Data Lab Results Last 24 hrs: Laboratory Results - last 24 hr 04/03/21 04/03/21 04/04/21 Range/Units 16:58 22:19 06:29 WBC 7.69 (4.23-9.07) K/mm3 RBC 2.63 L (4.63-6.08) M/mm3 Hgb 9.0 L (13.7-17.5) gm/dl Hct 27.9 L (40.1-51.0) % MCV 106.1 H (79.0-92.2) fl MCH 34.2 H (25.7-32.2) pg MCHC 32.3 (32.2-35.5) g/dl RDW Std Deviation 45.1 H (35.1-43.9) fL Plt Count 143 L (163-337) K/mm3 MPV 9.6 (9.4-12.3) fl Neut % (Auto) 76.6 H (34.0-67.9) % Lymph % (Auto) 10.9 L (21.8-53.1) % [place] % (Auto) 9.5 (5.3-12.2) % Eos % (Auto) 2.2 (0.8-7.0) Baso % (Auto) 0.1 (0.1-1.2) % Neut # (Auto) 5.89 H (1.78-5.38) K/mm3 Lymph # (Auto) 0.84 L (1.32-3.57) K/mm3 [place] # (Auto) 0.73 (0.30-0.82) K/mm3 Eos # (Auto) 0.17 (0.04-0.54) K/mm3 Baso # (Auto) 0.01 (0.01-0.08) K/mm3 Sodium (136-145) mEq/L Potassium (3.5-5.1) mEq/L Chloride (98-107) mEq/L Carbon Dioxide (21-32) mEq/L Anion Gap (5-15) BUN (7-18) mg/dL Creatinine (0.7-1.3) mg/dL Est Cr Clr Drug Dosing mL/min Estimated GFR (MDRD) (>60) mL/min BUN/Creatinine Ratio (14-18) Glucose (70-99) mg/dL POC Glucose 113 H 160 H (70-99) mg/dL Calcium (8.5-10.1) mg/dL Magnesium (1.8-2.4) mg/dL Total Bilirubin (0.2-1.0) mg/dL AST (15-37) U/L ALT (16-63) U/L Alkaline Phosphatase (46-116) U/L Total Protein (6.4-8.2) g/dl Albumin (3.4-5.0) g/dl Globulin gm/dL Albumin/Globulin Ratio (1-2) 04/04/21 04/04/21 04/04/21 Range/Units 06:29 07:36 11:54 WBC (4.23-9.07) K/mm3 RBC (4.63-6.08) M/mm3 Hgb (13.7-17.5) gm/dl Hct (40.1-51.0) % MCV (79.0-92.2) fl MCH (25.7-32.2) pg MCHC (32.2-35.5) g/dl RDW Std Deviation (35.1-43.9) fL Plt Count (163-337) K/mm3 MPV (9.4-12.3) fl Neut % (Auto) (34.0-67.9) % Lymph % (Auto) (21.8-53.1) % [place] % (Auto) (5.3-12.2) % Eos % (Auto) (0.8-7.0) Baso % (Auto) (0.1-1.2) % Neut # (Auto) (1.78-5.38) K/mm3 Lymph # (Auto) (1.32-3.57) K/mm3 [place] # (Auto) (0.30-0.82) K/mm3 Eos # (Auto) (0.04-0.54) K/mm3 Baso # (Auto) (0.01-0.08) K/mm3 Sodium 138 (136-145) mEq/L Potassium 4.9 (3.5-5.1) mEq/L Chloride 106 (98-107) mEq/L Carbon Dioxide 26 (21-32) mEq/L Anion Gap 10.9 (5-15) BUN 30 H (7-18) mg/dL Creatinine 2.0 H (0.7-1.3) mg/dL Est Cr Clr Drug Dosing 30.92 mL/min Estimated GFR (MDRD) 32 (>60) mL/min BUN/Creatinine Ratio 15.0 (14-18) Glucose 152 H (70-99) mg/dL POC Glucose 141 H 108 H (70-99) mg/dL Calcium 8.2 L (8.5-10.1) mg/dL Magnesium 1.8 (1.8-2.4) mg/dL Total Bilirubin 0.5 (0.2-1.0) mg/dL AST 18 (15-37) U/L ALT 8 L (16-63) U/L Alkaline Phosphatase 69 (46-116) U/L Total Protein 6.2 L (6.4-8.2) g/dl Albumin 2.7 L (3.4-5.0) g/dl Globulin 3.5 gm/dL Albumin/Globulin Ratio 0.8 L (1-2) Result Diagrams: 04/04/21 06:29 04/04/21 06:29 Sepsis Event Note - Focused Exam Vital Signs: Vital Signs Temp Pulse Resp BP Pulse Ox 04/04/21 13:52 91 89 L 04/04/21 13:51 98.8 F 91 16 108/37 L 91 L 04/04/21 09:04 86 95 04/04/21 09:03 99.3 F 88 18 122/43 L 94 L 04/04/21 08:00 108/37 L - Plan Plan:: Patient was seen and examined. Patient is very confused. Status post hip surgery. No changes to medical management at this time. Discussed no more than aspirin daily due to fall risk.
--- NOTE | 2021-04-04 07:29 | PCM48HPAN ---
Post Anesthesia Note - EVALUATION WITHIN 48HRS OF ANESTHETIC Vital Signs in Normal Range: Yes Patient Participated in Evaluation: Yes Respiratory Function Stable: Yes (on oxygen at .5 liters- weaning) Airway Patent: Yes Cardiovascular Function Stable: Yes Hydration Status Stable: Yes Pain Control Satisfactory: Yes Nausea and Vomiting Control Satisfactory: Yes Mental Status Recovered: No ( states he is still confused. Pain meds cause it. ) Vital Signs: Last Vital Signs Temp 98.8 F 04/04/21 02:13 Pulse 90 04/04/21 02:13 Resp 16 04/04/21 02:13 BP 111/52 L 04/04/21 02:13 Pulse Ox 99 04/04/21 02:13 - COMMENTS/OBSERVATIONS Free Text/Narrative:: states he had a bad night. Pullled sellers cath out. etc. He has been eating well. Confused still.
[2021-04-04] MEDS ORDERED: Lactated Ringers 500 ML IV ONE (07:57)
[2021-04-04] MEDS: METFORMIN 1000 MG PO SCH ×2 (08:00→17:48)
[2021-04-04] MEDS: CARBAMAZEPINE 400 MG PO SCH ×2 (08:00→17:49)
[2021-04-04] MEDS: AMANTADINE 100 MG PO SCH ×2 (08:00→17:48)
[2021-04-04] MEDS: ROTIGOTINE 8 MG TOP SCH (08:00)
[2021-04-04] MEDS: Losartan 25 MG Tab **OWN MED PO SCH (08:00)
[2021-04-04] MEDS: CARBAMAZEPINE 100 MG PO SCH ×2 (08:00→17:48)
[2021-04-04] MEDS: Insulin Lispro 100 UNIT/ML 10 ML Vial SUBCUT SCH ×3 (08:08→17:58)
[2021-04-04] MEDS: oxyCODONE 5 MG Tab PO PRN (08:17)
[2021-04-04] MEDS ORDERED: Aspirin 325 MG Tab.EC PO SCH (10:00)
[2021-04-04] MEDS ORDERED: Lactated Ringers 1,000 ML IV SCH ×2 (10:00→10:15)
[2021-04-04] MEDS: Enoxaparin 40 MG/0.4 ML Syringe SUBCUT SCH (10:56)
[2021-04-04] MEDS: Acetaminophen/HYDROcodone 325-5 MG Tab PO PRN ×2 (14:04→22:55)
[2021-04-05] MEDS: Insulin Lispro 100 UNIT/ML 10 ML Vial SUBCUT SCH ×5 (00:14→22:09)
[2021-04-05] MEDS ORDERED: Sodium Chloride 0.9% 500 ML IV ONE (06:48)
--- NOTE | 2021-04-05 06:51 | PCM.PN ---
<Amilcar Rajan - Last Filed: 04/05/21 11:08> - General Info Date of Service: 04/05/21 Admission Dx/Problem (Free Text): Admission Diagnosis/Problem Admission Diagnosis/Problem Hip fracture, intertrochanteric Functional Status: Reports: Pain Controlled, Tolerating Diet, Urinating, Incentive Spirometry. Denies: Ambulating (standing at bedside - very weak), New Symptoms - Review of Systems General: Reports: Weakness, Fatigue. Denies: Fever, Malaise, Chills HEENT: Reports: No Symptoms. Denies: Headaches, Sore Throat Pulmonary: Reports: No Symptoms. Denies: Shortness of Breath, Cough, Sputum, Wheezing Cardiovascular: Reports: No Symptoms. Denies: Chest Pain, Palpitations, Dyspnea on Exertion, Edema Gastrointestinal: Reports: No Symptoms. Denies: Abdominal Pain, Constipation, Diarrhea, Nausea, Vomiting Genitourinary: Reports: Hematuria (Mild secondary to traumatic removal of Donis catheter by patient). Denies: Pain Musculoskeletal: Reports: Leg Pain (Right) Skin: Reports: No Symptoms. Denies: Cyanosis Neurological: Reports: Confusion, Pre-Existing Deficit (Parkinson's), Tremors, Difficulty Walking, Weakness, Gait Disturbance. Denies: Dizziness, Headache, Numbness, Seizure, Syncope, Tingling Psychiatric: Reports: No Symptoms - Patient Data Vitals - Most Recent: Last Vital Signs Temp 97.9 F 04/05/21 04:09 Pulse 78 04/05/21 04:10 Resp 12 04/05/21 04:09 BP 94/60 04/05/21 04:09 Pulse Ox 95 04/05/21 04:10 Weight - Most Recent: 176 lb 4.8 oz I&O - Last 24 Hours: Intake & Output 04/04/21 04/04/21 04/05/21 14:59 22:59 06:59 Intake Total 1260 1000 Output Total 175 390 Balance -311 978 7677 Lab Results Last 24 Hours: Laboratory Results - last 24 hr 04/03/21 04/04/21 04/04/21 Range/Units 08:30 06:29 06:29 WBC 7.69 (4.23-9.07) K/mm3 RBC 2.63 L (4.63-6.08) M/mm3 Hgb 9.0 L (13.7-17.5) gm/dl Hct 27.9 L (40.1-51.0) % MCV 106.1 H (79.0-92.2) fl MCH 34.2 H (25.7-32.2) pg MCHC 32.3 (32.2-35.5) g/dl RDW Std Deviation 45.1 H (35.1-43.9) fL Plt Count 143 L (163-337) K/mm3 MPV 9.6 (9.4-12.3) fl Neut % (Auto) 76.6 H (34.0-67.9) % Lymph % (Auto) 10.9 L (21.8-53.1) % [place] % (Auto) 9.5 (5.3-12.2) % Eos % (Auto) 2.2 (0.8-7.0) Baso % (Auto) 0.1 (0.1-1.2) % Neut # (Auto) 5.89 H (1.78-5.38) K/mm3 Lymph # (Auto) 0.84 L (1.32-3.57) K/mm3 [place] # (Auto) 0.73 (0.30-0.82) K/mm3 Eos # (Auto) 0.17 (0.04-0.54) K/mm3 Baso # (Auto) 0.01 (0.01-0.08) K/mm3 Sodium 138 (136-145) mEq/L Potassium 4.9 (3.5-5.1) mEq/L Chloride 106 (98-107) mEq/L Carbon Dioxide 26 (21-32) mEq/L Anion Gap 10.9 (5-15) BUN 30 H (7-18) mg/dL Creatinine 2.0 H (0.7-1.3) mg/dL Est Cr Clr Drug Dosing 30.92 mL/min Estimated GFR (MDRD) 32 (>60) mL/min BUN/Creatinine Ratio 15.0 (14-18) Glucose 152 H (70-99) mg/dL POC Glucose (70-99) mg/dL Calcium 8.2 L (8.5-10.1) mg/dL Magnesium 1.8 (1.8-2.4) mg/dL Total Bilirubin 0.5 (0.2-1.0) mg/dL AST 18 (15-37) U/L ALT 8 L (16-63) U/L Alkaline Phosphatase 69 (46-116) U/L Total Protein 6.2 L (6.4-8.2) g/dl Albumin 2.7 L (3.4-5.0) g/dl Globulin 3.5 gm/dL Albumin/Globulin Ratio 0.8 L (1-2) Crossmatch See Detail 04/04/21 04/04/21 04/04/21 Range/Units 07:36 11:54 17:45 WBC (4.23-9.07) K/mm3 RBC (4.63-6.08) M/mm3 Hgb (13.7-17.5) gm/dl Hct (40.1-51.0) % MCV (79.0-92.2) fl MCH (25.7-32.2) pg MCHC (32.2-35.5) g/dl RDW Std Deviation (35.1-43.9) fL Plt Count (163-337) K/mm3 MPV (9.4-12.3) fl Neut % (Auto) (34.0-67.9) % Lymph % (Auto) (21.8-53.1) % [place] % (Auto) (5.3-12.2) % Eos % (Auto) (0.8-7.0) Baso % (Auto) (0.1-1.2) % Neut # (Auto) (1.78-5.38) K/mm3 Lymph # (Auto) (1.32-3.57) K/mm3 [place] # (Auto) (0.30-0.82) K/mm3 Eos # (Auto) (0.04-0.54) K/mm3 Baso # (Auto) (0.01-0.08) K/mm3 Sodium (136-145) mEq/L Potassium (3.5-5.1) mEq/L Chloride (98-107) mEq/L Carbon Dioxide (21-32) mEq/L Anion Gap (5-15) BUN (7-18) mg/dL Creatinine (0.7-1.3) mg/dL Est Cr Clr Drug Dosing mL/min Estimated GFR (MDRD) (>60) mL/min BUN/Creatinine Ratio (14-18) Glucose (70-99) mg/dL POC Glucose 141 H 108 H 152 H (70-99) mg/dL Calcium (8.5-10.1) mg/dL Magnesium (1.8-2.4) mg/dL Total Bilirubin (0.2-1.0) mg/dL AST (15-37) U/L ALT (16-63) U/L Alkaline Phosphatase (46-116) U/L Total Protein (6.4-8.2) g/dl Albumin (3.4-5.0) g/dl Globulin gm/dL Albumin/Globulin Ratio (1-2) Crossmatch 04/04/21 04/05/21 04/05/21 Range/Units 22:17 05:20 05:20 WBC 6.22 (4.23-9.07) K/mm3 RBC 2.02 L (4.63-6.08) M/mm3 Hgb 6.9 L* D (13.7-17.5) gm/dl Hct 21.4 L (40.1-51.0) % MCV 105.9 H (79.0-92.2) fl MCH 34.2 H (25.7-32.2) pg MCHC 32.2 (32.2-35.5) g/dl RDW Std Deviation 45.1 H (35.1-43.9) fL Plt Count 120 L (163-337) K/mm3 MPV 9.8 (9.4-12.3) fl Neut % (Auto) 72.2 H (34.0-67.9) % Lymph % (Auto) 13.8 L (21.8-53.1) % [place] % (Auto) 9.8 (5.3-12.2) % Eos % (Auto) 3.5 (0.8-7.0) Baso % (Auto) 0.2 (0.1-1.2) % Neut # (Auto) 4.49 (1.78-5.38) K/mm3 Lymph # (Auto) 0.86 L (1.32-3.57) K/mm3 [place] # (Auto) 0.61 (0.30-0.82) K/mm3 Eos # (Auto) 0.22 (0.04-0.54) K/mm3 Baso # (Auto) 0.01 (0.01-0.08) K/mm3 Sodium 138 (136-145) mEq/L Potassium 4.5 (3.5-5.1) mEq/L Chloride 106 (98-107) mEq/L Carbon Dioxide 26 (21-32) mEq/L Anion Gap 10.5 (5-15) BUN 33 H (7-18) mg/dL Creatinine 1.7 H (0.7-1.3) mg/dL Est Cr Clr Drug Dosing 36.38 mL/min Estimated GFR (MDRD) 39 (>60) mL/min BUN/Creatinine Ratio 19.4 H (14-18) Glucose 138 H (70-99) mg/dL POC Glucose 130 H (70-99) mg/dL Calcium 8.0 L (8.5-10.1) mg/dL Magnesium 1.8 (1.8-2.4) mg/dL Total Bilirubin 0.2 (0.2-1.0) mg/dL AST 14 L (15-37) U/L ALT 9 L (16-63) U/L Alkaline Phosphatase 54 (46-116) U/L Total Protein 5.5 L (6.4-8.2) g/dl Albumin 2.2 L (3.4-5.0) g/dl Globulin 3.3 gm/dL Albumin/Globulin Ratio 0.7 L (1-2) Crossmatch Med Orders - Current: Current Medications Acetaminophen (Acetaminophen 325 Mg Tab) 650 mg PO Q4H PRN PRN Reason: Pain (Mild 1-3)/fever Last Admin: 04/04/21 22:31 Dose: 650 mg Documented by: Hydrocodone Bitart/Acetaminophen (Acetaminophen/Hydrocodone 325-5 Mg Tab) 1 tab PO Q4H PRN PRN Reason: Pain (moderate 4-6) Last Admin: 04/04/21 22:55 Dose: 1 tab Documented by: Amantadine HCl (Amantadine 100 Mg Cap Own Med) 100 mg PO BID@0800,1700 [facility] Last Admin: 04/04/21 17:48 Dose: 100 mg Documented by: Aspirin (Aspirin 325 Mg Tab.Ec) 325 mg PO DAILY [facility] Stop: 05/08/21 09:01 Last Admin: 04/04/21 10:57 Dose: 325 mg Documented by: Docusate Sodium (Docusate Sodium 100 Mg Cap) 100 mg PO Q12H PRN PRN Reason: Constipation Last Admin: 04/04/21 06:55 Dose: 100 mg Documented by: Hydromorphone HCl (Hydromorphone 0.5 Mg/0.5 Ml Syringe) 0.5 mg IVPUSH Q2H PRN PRN Reason: Pain (severe 7-10) Last Admin: 04/03/21 19:21 Dose: 0.5 mg Documented by: Lactated Ringer's (Ringers, Lactated) 1,000 mls @ 100 mls/hr IV ASDIRECTED [facility] Sodium Chloride (Normal Saline) 500 mls @ 100 mls/hr IV BOLUS ONE Stop: 04/05/21 11:47 Insulin Human Lispro (Insulin Lispro 100 Unit/Ml 10 Ml Vial) 0 unit SUBCUT QIDACANDBED [facility]; Protocol Last Admin: 04/05/21 00:14 Dose: Not Given Documented by: Losartan Potassium (Losartan 25 Mg Tab Own Med) 25 mg PO DAILY@0800 [facility] Last Admin: 04/04/21 08:00 Dose: 25 mg Documented by: Carbamazepine Xr 100 (Mg Tab Own Med) 100 mg PO BID@0800,1700 [facility] Last Admin: 04/04/21 17:48 Dose: 100 mg Documented by: Carbidopa/Levodopa 25-250mg Tab Own Med 1 tab PO TID@0700,1300,1900 [facility] Last Admin: 04/04/21 19:56 Dose: 1 tab Documented by: Carbamazepine Er 400 (Mg Tab Own Med) 400 mg PO BID@0800,1700 [facility] Last Admin: 04/04/21 17:49 Dose: 400 mg Documented by: Ondansetron HCl (Ondansetron 4 Mg/2 Ml Sdv) 4 mg IV Q6H PRN PRN Reason: Nausea/Vomiting Rotigotine [Neupro . (33 Mg/Hr] 8 Mg Patch) 0 each TOP DAILY [facility] Last Admin: 04/04/21 08:00 Dose: 1 each Documented by: Carbidopa/Levodopa Er 50-200 Mg Tab Own Med 1 each PO BEDTIME [facility] Last Admin: 04/04/21 22:19 Dose: 1 each Documented by: Metformin 1000mg Tab (Own Med) 1 each PO BIDMEALS [facility] Last Admin: 04/04/21 17:48 Dose: 1 each Documented by: Discontinued Medications Amantadine HCl (Amantadine 100 Mg Cap) 100 mg PO BID [facility] Last Admin: 04/01/21 22:16 Dose: 100 mg Documented by: Amantadine HCl (Amantadine 100 Mg Cap) 100 mg PO BID@0800,1700 [facility] Last Admin: 04/02/21 17:49 Dose: 100 mg Documented by: Bupivacaine HCl (Bupivacaine 0.25% 10 Ml Sdv) Confirm Administered Dose 30 ml .ROUTE .STK-MED ONE Stop: 04/03/21 11:18 Last Admin: 04/03/21 13:35 Dose: 10 ml Documented by: Carbidopa/Levodopa (Carbidopa/Levodopa 25-100 Mg Tab.Er) 2 tab PO BEDTIME [facility] Cefazolin Sodium (Cefazolin 1 Gm Vial) Confirm Administered Dose 2 gm .ROUTE .STK-MED ONE Stop: 04/03/21 10:26 Enoxaparin Sodium (Enoxaparin 40 Mg/0.4 Ml Syringe) 40 mg SUBCUT DAILY [facility] Last Admin: 04/04/21 10:56 Dose: Not Given Documented by: Fentanyl (Fentanyl 100 Mcg/2 Ml Sdv) 50 mcg IVPUSH Q5M PRN PRN Reason: Pain Stop: 04/03/21 18:00 Hydromorphone HCl (Hydromorphone 1 Mg/Ml Syringe) 1 mg IVPUSH ONETIME ONE Stop: 03/31/21 22:33 Last Admin: 03/31/21 23:03 Dose: 1 mg Documented by: Hydromorphone HCl (Hydromorphone 1 Mg/Ml Syringe) 1 mg IVPUSH ONETIME ONE Stop: 04/01/21 07:22 Last Admin: 04/01/21 07:37 Dose: 1 mg Documented by: Hydromorphone HCl (Hydromorphone 0.5 Mg/0.5 Ml Syringe) 0.5 mg IVPUSH Q10M PRN PRN Reason: Pain (severe 7-10) Stop: 04/03/21 16:00 Lactated Ringer's (Ringers, Lactated) 1,000 mls @ 75 mls/hr IV ASDIRECTED [facility] Last Admin: 04/04/21 02:53 Dose: 75 mls/hr Documented by: Magnesium Sulfate 2 gm/ Premix 50 mls @ 25 mls/hr IV ONETIME ONE Stop: 04/02/21 09:40 Last Admin: 04/02/21 08:44 Dose: 25 mls/hr Documented by: Lidocaine HCl (Xylocaine-Mpf 1%) Confirm Administered Dose 4 mls @ as directed .ROUTE .STK-MED ONE Stop: 04/03/21 10:26 Lactated Ringer's (Ringers, Lactated) Confirm Administered Dose 1,000 mls @ as directed .ROUTE .STK-MED ONE Stop: 04/03/21 12:03 Cefazolin Sodium/Dextrose 2 gm (/ Premix) 50 mls @ 100 mls/hr IV Q8H [facility] Stop: 04/04/21 10:59 Last Admin: 04/04/21 11:27 Dose: 100 mls/hr Documented by: Lactated Ringer's (Ringers, Lactated) 500 mls @ 999 mls/hr IV .BOLUS ONE Stop: 04/04/21 08:27 Last Admin: 04/04/21 09:37 Dose: 999 mls/hr Documented by: Lactated Ringer's (Ringers, Lactated) 1,000 mls @ 60 mls/hr IV ASDIRECTED [facility] Stop: 04/05/21 02:39 Last Admin: 04/04/21 10:56 Dose: 60 mls/hr Documented by: Losartan Potassium (Losartan 25 Mg Tab) 25 mg PO DAILY [facility] Losartan Potassium (Losartan 25 Mg Tab) 25 mg PO DAILY@0800 [facility] Last Admin: 04/02/21 07:49 Dose: 25 mg Documented by: Metformin HCl (Metformin 500 Mg Tab) 1,000 mg PO BIDMEALS [facility] Last Admin: 04/02/21 17:46 Dose: 1,000 mg Documented by: Miscellaneous Medication (Phenylephrine Hcl In 0.9% Nacl 1 Mg/10 Ml Syringe) Confirm Administered Dose 1 mg .ROUTE .STK-MED ONE Stop: 04/03/21 12:31 Carbamazepine Xr 100 (Mg Tab Own Med) 100 mg PO BID [facility] Carbamazepine Er 400 (Mg Tab Own Med) 400 mg PO BID [facility] Carbidopa/Levodopa 25-250mg Tab Own Med 1 tab PO TID [facility] Ondansetron HCl (Ondansetron 4 Mg/2 Ml Sdv) Confirm Administered Dose 4 mg .ROUTE .STK-MED ONE Stop: 04/03/21 12:02 Ondansetron HCl (Ondansetron 4 Mg/2 Ml Sdv) 4 mg IVPUSH ONETIME PRN PRN Reason: Nausea/Vomiting Stop: 04/03/21 18:00 Oxycodone HCl (Oxycodone 5 Mg Tab) 5 mg PO Q4H PRN PRN Reason: Pain (moderate 4-6) Last Admin: 04/04/21 08:17 Dose: 5 mg Documented by: Propofol (Propofol 200 Mg/20 Ml Sdv) Confirm Administered Dose 200 mg .ROUTE .STK-MED ONE Stop: 04/03/21 10:26 Propofol (Propofol 200 Mg/20 Ml Sdv) Confirm Administered Dose 200 mg .ROUTE .STK-MED ONE Stop: 04/03/21 10:27 - Exam Quality Assessment: Supplemental Oxygen, DVT Prophylaxis. No: Urine Catheter Urinary Catheter Total Time: 0Days 12Hours General: Alert, Cooperative, No Acute Distress. No: Oriented HEENT: Pupils Equal, Pupils Reactive, Mucous Membr. Moist/[place] Neck: Supple, Trachea Midline Lungs: Clear to Auscultation, Normal Respiratory Effort Cardiovascular: Regular Rate, Regular Rhythm GI/Abdominal Exam: Normal Bowel Sounds, Soft, Non-Tender, No Distention (Male) Exam: Deferred Extremities: Normal Range of Motion, No Pedal Edema, Normal Capillary Refill, Leg Pain (Right), Limited Range of Motion, Other (Bandages in place on right leg.) Peripheral Pulses: 2+: Radial (L), Radial (R), Dorsalis Pedis (L), Dorsalis Pedis (R) Skin: Warm, Dry, Intact Wound/Incisions: Dressing Dry and Intact Neurological: No New Focal Deficit Psy/Mental Status: Alert, Normal Affect, Normal Mood - Patient Data Lab Results Last 24 hrs: Laboratory Results - last 24 hr 04/03/21 04/04/21 04/04/21 Range/Units 08:30 06:29 06:29 WBC 7.69 (4.23-9.07) K/mm3 RBC 2.63 L (4.63-6.08) M/mm3 Hgb 9.0 L (13.7-17.5) gm/dl Hct 27.9 L (40.1-51.0) % MCV 106.1 H (79.0-92.2) fl MCH 34.2 H (25.7-32.2) pg MCHC 32.3 (32.2-35.5) g/dl RDW Std Deviation 45.1 H (35.1-43.9) fL Plt Count 143 L (163-337) K/mm3 MPV 9.6 (9.4-12.3) fl Neut % (Auto) 76.6 H (34.0-67.9) % Lymph % (Auto) 10.9 L (21.8-53.1) % [place] % (Auto) 9.5 (5.3-12.2) % Eos % (Auto) 2.2 (0.8-7.0) Baso % (Auto) 0.1 (0.1-1.2) % Neut # (Auto) 5.89 H (1.78-5.38) K/mm3 Lymph # (Auto) 0.84 L (1.32-3.57) K/mm3 [place] # (Auto) 0.73 (0.30-0.82) K/mm3 Eos # (Auto) 0.17 (0.04-0.54) K/mm3 Baso # (Auto) 0.01 (0.01-0.08) K/mm3 Sodium 138 (136-145) mEq/L Potassium 4.9 (3.5-5.1) mEq/L Chloride 106 (98-107) mEq/L Carbon Dioxide 26 (21-32) mEq/L Anion Gap 10.9 (5-15) BUN 30 H (7-18) mg/dL Creatinine 2.0 H (0.7-1.3) mg/dL Est Cr Clr Drug Dosing 30.92 mL/min Estimated GFR (MDRD) 32 (>60) mL/min BUN/Creatinine Ratio 15.0 (14-18) Glucose 152 H (70-99) mg/dL POC Glucose (70-99) mg/dL Calcium 8.2 L (8.5-10.1) mg/dL Magnesium 1.8 (1.8-2.4) mg/dL Total Bilirubin 0.5 (0.2-1.0) mg/dL AST 18 (15-37) U/L ALT 8 L (16-63) U/L Alkaline Phosphatase 69 (46-116) U/L Total Protein 6.2 L (6.4-8.2) g/dl Albumin 2.7 L (3.4-5.0) g/dl Globulin 3.5 gm/dL Albumin/Globulin Ratio 0.8 L (1-2) Crossmatch See Detail 04/04/21 04/04/21 04/04/21 Range/Units 07:36 11:54 17:45 WBC (4.23-9.07) K/mm3 RBC (4.63-6.08) M/mm3 Hgb (13.7-17.5) gm/dl Hct (40.1-51.0) % MCV (79.0-92.2) fl MCH (25.7-32.2) pg MCHC (32.2-35.5) g/dl RDW Std Deviation (35.1-43.9) fL Plt Count (163-337) K/mm3 MPV (9.4-12.3) fl Neut % (Auto) (34.0-67.9) % Lymph % (Auto) (21.8-53.1) % [place] % (Auto) (5.3-12.2) % Eos % (Auto) (0.8-7.0) Baso % (Auto) (0.1-1.2) % Neut # (Auto) (1.78-5.38) K/mm3 Lymph # (Auto) (1.32-3.57) K/mm3 [place] # (Auto) (0.30-0.82) K/mm3 Eos # (Auto) (0.04-0.54) K/mm3 Baso # (Auto) (0.01-0.08) K/mm3 Sodium (136-145) mEq/L Potassium (3.5-5.1) mEq/L Chloride (98-107) mEq/L Carbon Dioxide (21-32) mEq/L Anion Gap (5-15) BUN (7-18) mg/dL Creatinine (0.7-1.3) mg/dL Est Cr Clr Drug Dosing mL/min Estimated GFR (MDRD) (>60) mL/min BUN/Creatinine Ratio (14-18) Glucose (70-99) mg/dL POC Glucose 141 H 108 H 152 H (70-99) mg/dL Calcium (8.5-10.1) mg/dL Magnesium (1.8-2.4) mg/dL Total Bilirubin (0.2-1.0) mg/dL AST (15-37) U/L ALT (16-63) U/L Alkaline Phosphatase (46-116) U/L Total Protein (6.4-8.2) g/dl Albumin (3.4-5.0) g/dl Globulin gm/dL Albumin/Globulin Ratio (1-2) Crossmatch 04/04/21 04/05/21 04/05/21 Range/Units 22:17 05:20 05:20 WBC 6.22 (4.23-9.07) K/mm3 RBC 2.02 L (4.63-6.08) M/mm3 Hgb 6.9 L* D (13.7-17.5) gm/dl Hct 21.4 L (40.1-51.0) % MCV 105.9 H (79.0-92.2) fl MCH 34.2 H (25.7-32.2) pg MCHC 32.2 (32.2-35.5) g/dl RDW Std Deviation 45.1 H (35.1-43.9) fL Plt Count 120 L (163-337) K/mm3 MPV 9.8 (9.4-12.3) fl Neut % (Auto) 72.2 H (34.0-67.9) % Lymph % (Auto) 13.8 L (21.8-53.1) % [place] % (Auto) 9.8 (5.3-12.2) % Eos % (Auto) 3.5 (0.8-7.0) Baso % (Auto) 0.2 (0.1-1.2) % Neut # (Auto) 4.49 (1.78-5.38) K/mm3 Lymph # (Auto) 0.86 L (1.32-3.57) K/mm3 [place] # (Auto) 0.61 (0.30-0.82) K/mm3 Eos # (Auto) 0.22 (0.04-0.54) K/mm3 Baso # (Auto) 0.01 (0.01-0.08) K/mm3 Sodium 138 (136-145) mEq/L Potassium 4.5 (3.5-5.1) mEq/L Chloride 106 (98-107) mEq/L Carbon Dioxide 26 (21-32) mEq/L Anion Gap 10.5 (5-15) BUN 33 H (7-18) mg/dL Creatinine 1.7 H (0.7-1.3) mg/dL Est Cr Clr Drug Dosing 36.38 mL/min Estimated GFR (MDRD) 39 (>60) mL/min BUN/Creatinine Ratio 19.4 H (14-18) Glucose 138 H (70-99) mg/dL POC Glucose 130 H (70-99) mg/dL Calcium 8.0 L (8.5-10.1) mg/dL Magnesium 1.8 (1.8-2.4) mg/dL Total Bilirubin 0.2 (0.2-1.0) mg/dL AST 14 L (15-37) U/L ALT 9 L (16-63) U/L Alkaline Phosphatase 54 (46-116) U/L Total Protein 5.5 L (6.4-8.2) g/dl Albumin 2.2 L (3.4-5.0) g/dl Globulin 3.3 gm/dL Albumin/Globulin Ratio 0.7 L (1-2) Crossmatch Result Diagrams: 04/05/21 05:20 04/05/21 05:20 Sepsis Event Note - Evaluation Sepsis Screening Result: No Definite Risk - Focused Exam Vital Signs: Vital Signs Temp Pulse Resp BP BP BP Pulse Ox 04/05/21 04:10 78 95 04/05/21 04:09 97.9 F 79 12 94/60 88 L 04/05/21 01:55 98.6 F 83 16 98/72 92 L 04/05/21 00:34 90/60 90/50 L 04/05/21 00:15 78 75/37 L 92 L 04/04/21 23:57 99.3 F 89 16 58/39 L 90 L 04/04/21 19:43 98.4 F 91 16 101/68 96 - Problem List & Annotations (1) Intertrochanteric fracture of right femur SNOMED Code(s): 946534232, 21295065167370189 Code(s): S72.141A - DISPLACED INTERTROCHANTERIC FRACTURE OF RIGHT FEMUR, INIT Status: Acute Priority: High Current Visit: Yes Qualifiers: Encounter type: initial encounter Fracture type: closed Fracture alignment: nondisplaced Qualified Code(s): S72.144A - Nondisplaced intertrochanteric fracture of right femur, initial encounter for closed fracture (2) Hypertension SNOMED Code(s): 41069614 Code(s): I10 - ESSENTIAL (PRIMARY) HYPERTENSION Status: Chronic Priority: Medium Current Visit: Yes Qualifiers: Hypertension type: unspecified Qualified Code(s): I10 - Essential (primary) hypertension (3) Parkinson disease SNOMED Code(s): 27081656 Code(s): G20 - PARKINSON'S DISEASE Status: Chronic Priority: Medium Current Visit: No (4) Type II diabetes mellitus SNOMED Code(s): 48038402 Code(s): E11.9 - TYPE 2 DIABETES MELLITUS WITHOUT COMPLICATIONS Status: Chronic Priority: Medium Current Visit: No Qualifiers: Diabetes mellitus group home insulin use: without group home use Diabetes mellitus complication status: with unspecified complications (5) Acute kidney injury SNOMED Code(s): 28292063, 32765034 Code(s): N17.9 - ACUTE KIDNEY FAILURE, UNSPECIFIED Status: Acute Priority: Medium Current Visit: Yes (6) Acute on chronic anemia SNOMED Code(s): 539070557, 100836953 Code(s): D64.9 - ANEMIA, UNSPECIFIED Status: Acute Priority: High Current Visit: Yes - Problem List Review Problem List Initiated/Reviewed/Updated: Yes - My Orders Last 24 Hours: My Active Orders 04/04/21 09:46 Acetaminophen/HYDROcodone [[place] 325-5 MG] 1 tab PO Q4H PRN 04/04/21 10:00 Aspirin [Ecotrin] 325 mg PO DAILY 04/04/21 10:15 Lactated Ringers [Ringers, Lactated] 1,000 ml IV ASDIRECTED 04/05/21 06:45 OCCULT BLOOD DIAGNOSTIC [OP] Routine 04/06/21 05:11 CBC WITH AUTO DIFF [HEME] AM CMP [COMPREHENSIVE METABOLIC PN,CMP] [CHEM] AM MAGNESIUM [CHEM] AM 04/07/21 05:11 CBC WITH AUTO DIFF [HEME] AM MAGNESIUM [CHEM] AM - Assessment Assessment:: This is a 80-year-old male with a history of Parkinson's who is postop day 2 of right intertrochanteric gamma nailing after a fall resulting in femur fracture. His , who is his primary automobile travel club counselor, has been at bedside and agrees patient is going to be too much to handle at home. Patient has been standing at the side of the bed but has been having some difficulty with ambulation. He has been confused, which his does state is normal for him on pain medications. Because of this patient was switched from oxycodone to [place], which patient's does report has helped his mental status. His pain has been controlled. Today his hemoglobin was noted to drop to 6.1 and he was transfused 1 unit PRBCs. He does have a history of chronic anemia. This is likely multifactorial as patient was receiving IV fluids yesterday due to dry mucous membranes and increased creatinine. Patient was also not having very good oral intake. Of note patient did remove his Donis catheter himself postoperatively and it was traumatic. He was noted to have bleeding from the end of his penis yesterday. Nursing has been monitoring this and he has been voiding okay. No blood clots or signs of potential obstruction. Urine has been clearing. Creatinine has im proved to 1.7 today with a GFR 39. We will recheck H&H tonight at 1400. Plan was to start patient on daily aspirin for VTE prophylaxis and we will discontinue this now in light of the patient's bleeding. We will consider restarting this should hemoglobin improved. Patient is on SCDs. Plan will be for discharge in 1 to 2 days to SNF for a rehab stay pending stabilization of labs. - Plan Plan:: 73-year-old male with Parkinson's disease tripped and causing an intertrochanteric fracture within the right hip. Intratrochanteric fracture of the right hip * Admitted for medical management waiting for surgery * Dr. Nicholas consulted -status post day 2 of right intramedullary hip gamma nailing. * Will need pain management * Neurovascularly intact * Noted confusion from pain medications this visit ( reports history of this in the past as well) * Will require SNF placement Parkinson's disease * Up with assistance * Will need physical therapy * Continue home meds Hypertension/diabetes * Stop oral hypoglycemics * Continue hypertensive medications except ROSIE/ARB until after surgery Acute renal injury, improving * BUN 30-->33, Creatinine 2.0-->1.7, GFR 32-->39 * Appears to have some baseline renal dysfunction per prior labs * Given IV fluids on 04/04/2021 and 1 unit PRBC on 04/05/2021 Anemia, acute on chronic * Hemoglobin 10.4-->10.2-->9.6-->9.0-->6.9 * Likely multifactorial due to IV fluids, surgery, chronic disease, and traumatic Donis removal by patient with resulting bleeding from penis Plan * Admit to medical floor (OB as M/S/P overflow) * Stop oxycodone and decrease to [place] Q4HR PRN for pain * Dilaudid 0.5 mg IV every 2 hours as needed pain * Sliding-scale insulin, fingerstick blood sugars 4 times daily * Continue home Parkinson's meds * IS * O2 as needed * Transfuse 1 unit PRBC today * Recheck H/H tonight at 1400 * Occult stool ordered * Monitor urine output * PT/OT * CM/SW consult - will require SNF rehab stay * Diabetic diet * VTE prophylaxis: SCDs -discontinued aspirin due to acute anemia * CODE STATUS: Full code <Yuridia Moore - Last Filed: 04/05/21 12:10> - Patient Data Vitals - Most Recent: Last Vital Signs Temp 98.1 F 04/05/21 07:41 Pulse 78 04/05/21 07:41 Resp 16 04/05/21 07:41 BP 95/50 L 04/05/21 10:35 Pulse Ox 99 04/05/21 07:41 I&O - Last 24 Hours: Intake & Output 04/04/21 04/05/21 04/05/21 22:59 06:59 14:59 Intake Total 1560 1000 240 Output Total 390 Balance 1170 1000 240 Lab Results Last 24 Hours: Laboratory Results - last 24 hr 04/03/21 04/04/21 04/04/21 Range/Units 08:30 17:45 22:17 WBC (4.23-9.07) K/mm3 RBC (4.63-6.08) M/mm3 Hgb (13.7-17.5) gm/dl Hct (40.1-51.0) % MCV (79.0-92.2) fl MCH (25.7-32.2) pg MCHC (32.2-35.5) g/dl RDW Std Deviation (35.1-43.9) fL Plt Count (163-337) K/mm3 MPV (9.4-12.3) fl Neut % (Auto) (34.0-67.9) % Lymph % (Auto) (21.8-53.1) % [place] % (Auto) (5.3-12.2) % Eos % (Auto) (0.8-7.0) Baso % (Auto) (0.1-1.2) % Neut # (Auto) (1.78-5.38) K/mm3 Lymph # (Auto) (1.32-3.57) K/mm3 [place] # (Auto) (0.30-0.82) K/mm3 Eos # (Auto) (0.04-0.54) K/mm3 Baso # (Auto) (0.01-0.08) K/mm3 Sodium (136-145) mEq/L Potassium (3.5-5.1) mEq/L Chloride (98-107) mEq/L Carbon Dioxide (21-32) mEq/L Anion Gap (5-15) BUN (7-18) mg/dL Creatinine (0.7-1.3) mg/dL Est Cr Clr Drug Dosing mL/min Estimated GFR (MDRD) (>60) mL/min BUN/Creatinine Ratio (14-18) Glucose (70-99) mg/dL POC Glucose 152 H 130 H (70-99) mg/dL Calcium (8.5-10.1) mg/dL Magnesium (1.8-2.4) mg/dL Total Bilirubin (0.2-1.0) mg/dL AST (15-37) U/L ALT (16-63) U/L Alkaline Phosphatase (46-116) U/L Total Protein (6.4-8.2) g/dl Albumin (3.4-5.0) g/dl Globulin gm/dL Albumin/Globulin Ratio (1-2) Blood Type A POSITIVE Gel Antibody Screen Negative Crossmatch See Detail 04/05/21 04/05/21 04/05/21 Range/Units 05:20 05:20 07:42 WBC 6.22 (4.23-9.07) K/mm3 RBC 2.02 L (4.63-6.08) M/mm3 Hgb 6.9 L* D (13.7-17.5) gm/dl Hct 21.4 L (40.1-51.0) % MCV 105.9 H (79.0-92.2) fl MCH 34.2 H (25.7-32.2) pg MCHC 32.2 (32.2-35.5) g/dl RDW Std Deviation 45.1 H (35.1-43.9) fL Plt Count 120 L (163-337) K/mm3 MPV 9.8 (9.4-12.3) fl Neut % (Auto) 72.2 H (34.0-67.9) % Lymph % (Auto) 13.8 L (21.8-53.1) % [place] % (Auto) 9.8 (5.3-12.2) % Eos % (Auto) 3.5 (0.8-7.0) Baso % (Auto) 0.2 (0.1-1.2) % Neut # (Auto) 4.49 (1.78-5.38) K/mm3 Lymph # (Auto) 0.86 L (1.32-3.57) K/mm3 [place] # (Auto) 0.61 (0.30-0.82) K/mm3 Eos # (Auto) 0.22 (0.04-0.54) K/mm3 Baso # (Auto) 0.01 (0.01-0.08) K/mm3 Sodium 138 (136-145) mEq/L Potassium 4.5 (3.5-5.1) mEq/L Chloride 106 (98-107) mEq/L Carbon Dioxide 26 (21-32) mEq/L Anion Gap 10.5 (5-15) BUN 33 H (7-18) mg/dL Creatinine 1.7 H (0.7-1.3) mg/dL Est Cr Clr Drug Dosing 36.38 mL/min Estimated GFR (MDRD) 39 (>60) mL/min BUN/Creatinine Ratio 19.4 H (14-18) Glucose 138 H (70-99) mg/dL POC Glucose 118 H (70-99) mg/dL Calcium 8.0 L (8.5-10.1) mg/dL Magnesium 1.8 (1.8-2.4) mg/dL Total Bilirubin 0.2 (0.2-1.0) mg/dL AST 14 L (15-37) U/L ALT 9 L (16-63) U/L Alkaline Phosphatase 54 (46-116) U/L Total Protein 5.5 L (6.4-8.2) g/dl Albumin 2.2 L (3.4-5.0) g/dl Globulin 3.3 gm/dL Albumin/Globulin Ratio 0.7 L (1-2) Blood Type Gel Antibody Screen Crossmatch Med Orders - Current: Current Medications Acetaminophen (Acetaminophen 325 Mg Tab) 650 mg PO Q4H PRN PRN Reason: Pain (Mild 1-3)/fever Last Admin: 04/04/21 22:31 Dose: 650 mg Documented by: Hydrocodone Bitart/Acetaminophen (Acetaminophen/Hydrocodone 325-5 Mg Tab) 1 tab PO Q4H PRN PRN Reason: Pain (moderate 4-6) Last Admin: 04/05/21 10:28 Dose: 1 tab Documented by: Amantadine HCl (Amantadine 100 Mg Cap Own Med) 100 mg PO BID@0800,1700 [facility] Last Admin: 04/05/21 07:53 Dose: 100 mg Documented by: Docusate Sodium (Docusate Sodium 100 Mg Cap) 100 mg PO Q12H PRN PRN Reason: Constipation Last Admin: 04/04/21 06:55 Dose: 100 mg Documented by: Hydromorphone HCl (Hydromorphone 0.5 Mg/0.5 Ml Syringe) 0.5 mg IVPUSH Q2H PRN PRN Reason: Pain (severe 7-10) Last Admin: 04/03/21 19:21 Dose: 0.5 mg Documented by: Lactated Ringer's (Ringers, Lactated) 1,000 mls @ 100 mls/hr IV ASDIRECTED [facility] Insulin Human Lispro (Insulin Lispro 100 Unit/Ml 10 Ml Vial) 0 unit SUBCUT QIDACANDBED [facility]; Protocol Last Admin: 04/05/21 12:05 Dose: Not Given Documented by: Losartan Potassium (Losartan 25 Mg Tab Own Med) 25 mg PO DAILY@0800 [facility] Last Admin: 04/05/21 10:35 Dose: Not Given Documented by: Carbamazepine Xr 100 (Mg Tab Own Med) 100 mg PO BID@0800,1700 [facility] Last Admin: 04/05/21 07:53 Dose: 100 mg Documented by: Carbidopa/Levodopa 25-250mg Tab Own Med 1 tab PO TID@0700,1300,1900 [facility] Last Admin: 04/05/21 07:50 Dose: 1 tab Documented by: Carbamazepine Er 400 (Mg Tab Own Med) 400 mg PO BID@0800,1700 [facility] Last Admin: 04/05/21 07:53 Dose: 400 mg Documented by: Ondansetron HCl (Ondansetron 4 Mg/2 Ml Sdv) 4 mg IV Q6H PRN PRN Reason: Nausea/Vomiting Rotigotine [Neupro . (33 Mg/Hr] 8 Mg Patch) 0 each TOP DAILY [facility] Last Admin: 04/05/21 10:34 Dose: 1 each Documented by: Carbidopa/Levodopa Er 50-200 Mg Tab Own Med 1 each PO BEDTIME [facility] Last Admin: 04/04/21 22:19 Dose: 1 each Documented by: Metformin 1000mg Tab (Own Med) 1 each PO BIDMEALS [facility] Last Admin: 04/05/21 07:47 Dose: 1 each Documented by: Discontinued Medications Amantadine HCl (Amantadine 100 Mg Cap) 100 mg PO BID [facility] Last Admin: 04/01/21 22:16 Dose: 100 mg Documented by: Amantadine HCl (Amantadine 100 Mg Cap) 100 mg PO BID@0800,1700 [facility] Last Admin: 04/02/21 17:49 Dose: 100 mg Documented by: Aspirin (Aspirin 325 Mg Tab.Ec) 325 mg PO DAILY [facility] Stop: 05/08/21 09:01 Last Admin: 04/04/21 10:57 Dose: 325 mg Documented by: Bupivacaine HCl (Bupivacaine 0.25% 10 Ml Sdv) Confirm Administered Dose 30 ml .ROUTE .STK-MED ONE Stop: 04/03/21 11:18 Last Admin: 04/03/21 13:35 Dose: 10 ml Documented by: Carbidopa/Levodopa (Carbidopa/Levodopa 25-100 Mg Tab.Er) 2 tab PO BEDTIME [facility] Cefazolin Sodium (Cefazolin 1 Gm Vial) Confirm Administered Dose 2 gm .ROUTE .STK-MED ONE Stop: 04/03/21 10:26 Enoxaparin Sodium (Enoxaparin 40 Mg/0.4 Ml Syringe) 40 mg SUBCUT DAILY [facility] Last Admin: 04/04/21 10:56 Dose: Not Given Documented by: Fentanyl (Fentanyl 100 Mcg/2 Ml Sdv) 50 mcg IVPUSH Q5M PRN PRN Reason: Pain Stop: 04/03/21 18:00 Hydromorphone HCl (Hydromorphone 1 Mg/Ml Syringe) 1 mg IVPUSH ONETIME ONE Stop: 03/31/21 22:33 Last Admin: 03/31/21 23:03 Dose: 1 mg Documented by: Hydromorphone HCl (Hydromorphone 1 Mg/Ml Syringe) 1 mg IVPUSH ONETIME ONE Stop: 04/01/21 07:22 Last Admin: 04/01/21 07:37 Dose: 1 mg Documented by: Hydromorphone HCl (Hydromorphone 0.5 Mg/0.5 Ml Syringe) 0.5 mg IVPUSH Q10M PRN PRN Reason: Pain (severe 7-10) Stop: 04/03/21 16:00 Lactated Ringer's (Ringers, Lactated) 1,000 mls @ 75 mls/hr IV ASDIRECTED [facility] Last Admin: 04/04/21 02:53 Dose: 75 mls/hr Documented by: Magnesium Sulfate 2 gm/ Premix 50 mls @ 25 mls/hr IV ONETIME ONE Stop: 04/02/21 09:40 Last Admin: 04/02/21 08:44 Dose: 25 mls/hr Documented by: Lidocaine HCl (Xylocaine-Mpf 1%) Confirm Administered Dose 4 mls @ as directed .ROUTE .STK-MED ONE Stop: 04/03/21 10:26 Lactated Ringer's (Ringers, Lactated) Confirm Administered Dose 1,000 mls @ as directed .ROUTE .STK-MED ONE Stop: 04/03/21 12:03 Cefazolin Sodium/Dextrose 2 gm (/ Premix) 50 mls @ 100 mls/hr IV Q8H [facility] Stop: 04/04/21 10:59 Last Admin: 04/04/21 11:27 Dose: 100 mls/hr Documented by: Lactated Ringer's (Ringers, Lactated) 500 mls @ 999 mls/hr IV .BOLUS ONE Stop: 04/04/21 08:27 Last Admin: 04/04/21 09:37 Dose: 999 mls/hr Documented by: Lactated Ringer's (Ringers, Lactated) 1,000 mls @ 60 mls/hr IV ASDIRECTED [facility] Stop: 04/05/21 02:39 Last Admin: 04/04/21 10:56 Dose: 60 mls/hr Documented by: Sodium Chloride (Normal Saline) 500 mls @ 100 mls/hr IV BOLUS ONE Stop: 04/05/21 11:47 Last Admin: 04/05/21 07:25 Dose: 100 mls/hr Documented by: Losartan Potassium (Losartan 25 Mg Tab) 25 mg PO DAILY [facility] Losartan Potassium (Losartan 25 Mg Tab) 25 mg PO DAILY@0800 [facility] Last Admin: 04/02/21 07:49 Dose: 25 mg Documented by: Metformin HCl (Metformin 500 Mg Tab) 1,000 mg PO BIDMEALS [facility] Last Admin: 04/02/21 17:46 Dose: 1,000 mg Documented by: Miscellaneous Medication (Phenylephrine Hcl In 0.9% Nacl 1 Mg/10 Ml Syringe) Confirm Administered Dose 1 mg .ROUTE .STK-MED ONE Stop: 04/03/21 12:31 Carbamazepine Xr 100 (Mg Tab Own Med) 100 mg PO BID [facility] Carbamazepine Er 400 (Mg Tab Own Med) 400 mg PO BID [facility] Carbidopa/Levodopa 25-250mg Tab Own Med 1 tab PO TID [facility] Ondansetron HCl (Ondansetron 4 Mg/2 Ml Sdv) Confirm Administered Dose 4 mg .ROUTE .STK-MED ONE Stop: 04/03/21 12:02 Ondansetron HCl (Ondansetron 4 Mg/2 Ml Sdv) 4 mg IVPUSH ONETIME PRN PRN Reason: Nausea/Vomiting Stop: 04/03/21 18:00 Oxycodone HCl (Oxycodone 5 Mg Tab) 5 mg PO Q4H PRN PRN Reason: Pain (moderate 4-6) Last Admin: 04/04/21 08:17 Dose: 5 mg Documented by: Propofol (Propofol 200 Mg/20 Ml Sdv) Confirm Administered Dose 200 mg .ROUTE .STK-MED ONE Stop: 04/03/21 10:26 Propofol (Propofol 200 Mg/20 Ml Sdv) Confirm Administered Dose 200 mg .ROUTE .STK-MED ONE Stop: 04/03/21 10:27 - Patient Data Lab Results Last 24 hrs: Laboratory Results - last 24 hr 04/03/21 04/04/21 04/04/21 Range/Units 08:30 17:45 22:17 WBC (4.23-9.07) K/mm3 RBC (4.63-6.08) M/mm3 Hgb (13.7-17.5) gm/dl Hct (40.1-51.0) % MCV (79.0-92.2) fl MCH (25.7-32.2) pg MCHC (32.2-35.5) g/dl RDW Std Deviation (35.1-43.9) fL Plt Count (163-337) K/mm3 MPV (9.4-12.3) fl Neut % (Auto) (34.0-67.9) % Lymph % (Auto) (21.8-53.1) % [place] % (Auto) (5.3-12.2) % Eos % (Auto) (0.8-7.0) Baso % (Auto) (0.1-1.2) % Neut # (Auto) (1.78-5.38) K/mm3 Lymph # (Auto) (1.32-3.57) K/mm3 [place] # (Auto) (0.30-0.82) K/mm3 Eos # (Auto) (0.04-0.54) K/mm3 Baso # (Auto) (0.01-0.08) K/mm3 Sodium (136-145) mEq/L Potassium (3.5-5.1) mEq/L Chloride (98-107) mEq/L Carbon Dioxide (21-32) mEq/L Anion Gap (5-15) BUN (7-18) mg/dL Creatinine (0.7-1.3) mg/dL Est Cr Clr Drug Dosing mL/min Estimated GFR (MDRD) (>60) mL/min BUN/Creatinine Ratio (14-18) Glucose (70-99) mg/dL POC Glucose 152 H 130 H (70-99) mg/dL Calcium (8.5-10.1) mg/dL Magnesium (1.8-2.4) mg/dL Total Bilirubin (0.2-1.0) mg/dL AST (15-37) U/L ALT (16-63) U/L Alkaline Phosphatase (46-116) U/L Total Protein (6.4-8.2) g/dl Albumin (3.4-5.0) g/dl Globulin gm/dL Albumin/Globulin Ratio (1-2) Blood Type A POSITIVE Gel Antibody Screen Negative Crossmatch See Detail 04/05/21 04/05/21 04/05/21 Range/Units 05:20 05:20 07:42 WBC 6.22 (4.23-9.07) K/mm3 RBC 2.02 L (4.63-6.08) M/mm3 Hgb 6.9 L* D (13.7-17.5) gm/dl Hct 21.4 L (40.1-51.0) % MCV 105.9 H (79.0-92.2) fl MCH 34.2 H (25.7-32.2) pg MCHC 32.2 (32.2-35.5) g/dl RDW Std Deviation 45.1 H (35.1-43.9) fL Plt Count 120 L (163-337) K/mm3 MPV 9.8 (9.4-12.3) fl Neut % (Auto) 72.2 H (34.0-67.9) % Lymph % (Auto) 13.8 L (21.8-53.1) % [place] % (Auto) 9.8 (5.3-12.2) % Eos % (Auto) 3.5 (0.8-7.0) Baso % (Auto) 0.2 (0.1-1.2) % Neut # (Auto) 4.49 (1.78-5.38) K/mm3 Lymph # (Auto) 0.86 L (1.32-3.57) K/mm3 [place] # (Auto) 0.61 (0.30-0.82) K/mm3 Eos # (Auto) 0.22 (0.04-0.54) K/mm3 Baso # (Auto) 0.01 (0.01-0.08) K/mm3 Sodium 138 (136-145) mEq/L Potassium 4.5 (3.5-5.1) mEq/L Chloride 106 (98-107) mEq/L Carbon Dioxide 26 (21-32) mEq/L Anion Gap 10.5 (5-15) BUN 33 H (7-18) mg/dL Creatinine 1.7 H (0.7-1.3) mg/dL Est Cr Clr Drug Dosing 36.38 mL/min Estimated GFR (MDRD) 39 (>60) mL/min BUN/Creatinine Ratio 19.4 H (14-18) Glucose 138 H (70-99) mg/dL POC Glucose 118 H (70-99) mg/dL Calcium 8.0 L (8.5-10.1) mg/dL Magnesium 1.8 (1.8-2.4) mg/dL Total Bilirubin 0.2 (0.2-1.0) mg/dL AST 14 L (15-37) U/L ALT 9 L (16-63) U/L Alkaline Phosphatase 54 (46-116) U/L Total Protein 5.5 L (6.4-8.2) g/dl Albumin 2.2 L (3.4-5.0) g/dl Globulin 3.3 gm/dL Albumin/Globulin Ratio 0.7 L (1-2) Blood Type Gel Antibody Screen Crossmatch Result Diagrams: 04/05/21 05:20 04/05/21 05:20 Sepsis Event Note - Focused Exam Vital Signs: Vital Signs Temp Pulse Pulse Resp BP BP BP 04/05/21 10:35 95/50 L 04/05/21 07:41 98.1 F 78 16 124/60 04/05/21 07:28 98.3 F 79 16 95/43 L 04/05/21 04:10 78 04/05/21 04:09 97.9 F 79 12 94/60 04/05/21 01:55 98.6 F 83 16 98/72 04/05/21 00:34 90/60 90/50 L 04/05/21 00:15 78 75/37 L Pulse Ox 04/05/21 10:35 04/05/21 07:41 99 04/05/21 07:28 04/05/21 04:10 95 04/05/21 04:09 88 L 04/05/21 01:55 92 L 04/05/21 00:34 04/05/21 00:15 92 L - My Orders Last 24 Hours: My Active Orders 04/05/21 06:22 Blood Transfusion Reflex Orders [OM.PC] Routine - Plan Plan:: Patient was seen and examined, agree with assessment and plan. Patient did have a significant drop in his hemoglobin and aspirin has been stopped with 1 unit of packed red blood cells ordered for him today. Extremity: Continued pain management status post surgery Musculoskeletal: 2 person assist CVA- [id number] Resp: CTA
[2021-04-05] MEDS: METFORMIN 1000 MG PO SCH ×2 (07:47→17:35)
[2021-04-05] MEDS: CARBIDOPA PO SCH ×4 (07:50→22:09)
[2021-04-05] MEDS: LEVODOPA PO SCH ×4 (07:50→22:09)
[2021-04-05] MEDS: CARBAMAZEPINE 400 MG PO SCH ×2 (07:53→17:34)
[2021-04-05] MEDS: AMANTADINE 100 MG PO SCH ×2 (07:53→17:35)
[2021-04-05] MEDS: CARBAMAZEPINE 100 MG PO SCH ×2 (07:53→17:34)
[2021-04-05] MEDS: Acetaminophen/HYDROcodone 325-5 MG Tab PO PRN ×3 (10:28→22:10)
[2021-04-05] MEDS: ROTIGOTINE 8 MG TOP SCH (10:34)
[2021-04-05] MEDS: Losartan 25 MG Tab **OWN MED PO SCH (10:35)
[2021-04-05] MEDS ORDERED: Magnesium Hydroxide 400 MG/5 ML Susp 30 ML Cup PO PRN (14:41)
[2021-04-05] MEDS: Docusate Sodium 100 MG Cap PO SCH (22:10)
[2021-04-06] MEDS: Acetaminophen/HYDROcodone 325-5 MG Tab PO PRN ×2 (04:31→10:20)
--- NOTE | 2021-04-06 06:44 | CT ---
CT abdomen and pelvis Technique: Multiple axial sections were obtained from above the dome of the diaphragm inferiorly through the pubic symphysis. Intravenous and oral contrast were not utilized. Reconstructed coronal and sagittal images were obtained. Comparison: Prior CT abdomen and pelvis study of 02/21/15 and 08/25/14 and also prior pelvis study of 03/31/21 are available. Findings: Slight linear atelectasis is seen within both lung bases. Noncontrast appearance of the liver shows no focal abnormality. Spleen size is normal. Gallbladder contains no calcified gallstones. Adrenal glands show no nodule. Mass is noted within the upper right kidney measuring approximately 3.8 cm x 3.3 cm and shows calcifications. On earliest CT study this finding measured 4.2 cm x 3.7 cm. Please correlate if this represents a treated renal mass. Small parapelvic cyst is noted within the lower left kidney. No ureteral dilatation is seen on either side. Pancreas appears within normal limits. Abdominal aorta shows atherosclerotic calcification which continues into the iliac vessels with no aneurysm. No retroperitoneal adenopathy or mesenteric abnormalities are seen. Diverticuli are seen within the sigmoid colon with no diverticulitis. Orthopedic hardware is noted within the right hip affixing previous right hip fracture. Fracture is intertrochanteric in location. Mildly displaced lesser trochanteric fracture is noted within the right hip. Soft tissue swelling and air is noted overlying the right hip with skin lizbeth. Impression: 1. Right renal mass showing calcifications. This mass is slightly smaller than earliest CT exam raising the possibility of treated carcinoma. Please correlate. 2. Recently treated right hip fracture with orthopedic hardware in place as well as soft tissue edema and skin lizbeth overlying the right hip. 3. Other findings believed to be incidental as described above. Diagnostic code #3 I agree with preliminary report from [facility] finalized on 04/06/21, 3:38 AM CDT, code 1
[2021-04-06] MEDS: Insulin Lispro 100 UNIT/ML 10 ML Vial SUBCUT SCH ×2 (07:33→11:33)
[2021-04-06] MEDS: LEVODOPA PO SCH ×2 (07:34→12:40)
[2021-04-06] MEDS: CARBIDOPA PO SCH ×2 (07:34→12:40)
[2021-04-06] MEDS: CARBAMAZEPINE 100 MG PO SCH (07:34)
[2021-04-06] MEDS: METFORMIN 1000 MG PO SCH (07:34)
[2021-04-06] MEDS: CARBAMAZEPINE 400 MG PO SCH (07:34)
[2021-04-06] MEDS: AMANTADINE 100 MG PO SCH (07:37)
[2021-04-06] MEDS: Acetaminophen 325 MG Tab PO PRN (09:12)
[2021-04-06] MEDS: Losartan 25 MG Tab **OWN MED PO SCH (09:15)
[2021-04-06] MEDS: Docusate Sodium 100 MG Cap PO SCH (09:15)
[2021-04-06] MEDS: ROTIGOTINE 8 MG TOP SCH (10:19)
--- NOTE | 2021-04-06 11:49 | PCM.DCSUM1 ---
Discharge Summary - Hospital Course HPI Initial Comments: 80-year-old male with Parkinson's fell at home after standing up from a card game and tripping over his own feet. Patient had no loss of conscience or head trauma. Patient also states that he heard a popping sound and felt a popping sensation. Patient was brought to the emergency department where he was found to have an intertrochanteric fracture within the right hip. Patient stayed overnight in the emergency department and they contacted Dr. Nicholas in orthopedic surgeon who said he would do surgery on him either Saturday or Saturday and asked for medicine to admit. Patient denies any fever or chills. He did receive two 1 mg doses of Dilaudid in the emergency department. He is currently having severe pain with any movement. Diagnosis: Stroke: No - Discharge Data Discharge Date: 04/06/21 (Admit date: 04/01/2021) Discharge Disposition: DC/Tfer to SNF 03 Condition: Good - Referral to Home Health Primary Care Physician: Waqas Bolton MD - Discharge Diagnosis/Problem(s) (1) Intertrochanteric fracture of right femur SNOMED Code(s): 522759570, [id number] ICD Code: S72.141A - DISPLACED INTERTROCHANTERIC FRACTURE OF RIGHT FEMUR, INIT Status: Acute Priority: High Qualifiers: Encounter type: initial encounter Fracture type: closed Fracture alignment: nondisplaced Qualified Code(s): S72.144A - Nondisplaced intertrochanteric fracture of right femur, initial encounter for closed fracture (2) Hypertension SNOMED Code(s): 61387226 ICD Code: I10 - ESSENTIAL (PRIMARY) HYPERTENSION Status: Chronic Priority: Medium Qualifiers: Hypertension type: unspecified Qualified Code(s): I10 - Essential (primary) hypertension (3) Parkinson disease SNOMED Code(s): 96820685 ICD Code: G20 - PARKINSON'S DISEASE Status: Chronic Priority: Medium (4) Type II diabetes mellitus SNOMED Code(s): 69481776 ICD Code: E11.9 - TYPE 2 DIABETES MELLITUS WITHOUT COMPLICATIONS Status: Chronic Priority: Medium Qualifiers: Diabetes mellitus long wall mining machine helper insulin use: without long wall mining machine helper use Diabetes mellitus complication status: with unspecified complications (5) Acute kidney injury SNOMED Code(s): 01088923, 73775462 ICD Code: N17.9 - ACUTE KIDNEY FAILURE, UNSPECIFIED Status: Resolved Priority: Medium (6) Acute on chronic anemia SNOMED Code(s): 501131756, 277865515 ICD Code: D64.9 - ANEMIA, UNSPECIFIED Status: Acute Priority: High - Patient Summary/Data Consults: Consultations 04/03/21 11:37 Consult to Case Management/Alodize Machine Helper [CONS] Routine 04/03/21 13:56 OT Evaluation and Treatment [CONS] Routine PT Evaluation and Treatment [CONS] Routine Labs Pending at D/C: None Recommended Follow-up Testing/Procedures: Follow-up with primary care provider within 5 to 7 days of discharge, sooner if needed. * Patient was noted to have bleeding and anemia (acute on chronic) while here * Anemia was likely multifactorial due to surgery, IV fluids leading to dilution, and traumatic Donis removal with residual bleeding * Repeat H/H ordered for 04/09/2021 with results to primary care provider. Please watch for this. * Recommend repeat CBC, CMP, and magnesium in follow-up. * All home medications continued at discharge. * Patient prescribed Tylenol and Hixson for pain. Pain was mostly controlled with Tylenol * Recommend continuing PT/OT at SNF. * Patient discharged to [facility] SNF for rehab stay. Follow-up with orthopedics as scheduled. Hospital Course: This is a 80-year-old male with a history of Parkinson's, hypertension and diabetes, who presented to ED on 03/31/2021 after a fall resulting in a possible right hip fracture. Patient resides at home with his . As no beds were david ilable in our facility plan was to transfer patient to [place] for planned surgery however no beds are available there as well. Patient is boarded in the ED and ultimately admitted to the OB floor as a medical floor overflow the following day. Patient undergoes right intertrochanteric gamma nailing on 04/03/2021. Postoperatively patient remained quite weak. PT and OT did work with the patient and are recommending SNF placement. Patient was noted to have worsening confusion, which the patient's reports is chronic for him with opioid pain medications. For the most part pain was controlled with Tylenol and he did occasionally require narcotic pain medications. We did decrease him from oxycodone to Hixson 5/325 mg, which the at bedside reports had good pain control and less confusion. Postsurgically he did note some acute on chronic renal injury with a creatinine of 2.0. Patient was given some IV fluids. Unfortunately postsurgically patient did have a Donis catheter in place which he pulled out in an episode of confusion. He was noted to have some bleeding from his penis thereafter. There is no difficulty with urination or clotting in his urine. Throughout his stay patient's hemoglobin did trend downward from 10.4 on admission to 6.9. This is likely multifactorial due to dilution from IV fluids, his chronic baseline anemia, surgery, and his bleeding secondary to traumatic Donis removal. Daily 325 mg aspirin for VTE was discontinued. He was given 1 unit of packed red blood cells and his hemoglobin did improve to 8.9 today. Occult stool was negative. Patient did note some bruising to his penis and scrotum, however this was minor. There is also minor bruising noted postsurgically to his right leg. Patient did remove one surgical site bandage during an episode of confusion and this was reapplied by nursing. Creatinine did improve to 1.5 with a GFR of 45 prior to discharge. Ultimately patient was accepted at [facility] for a rehab stay. Repeat Covid 19 screen was negative. Discharge VTE plan was discussed with orthopedics team and ultimately it was decided patient would be discharged on 81 mg twice daily aspirin for VTE. Risks and benefits were discussed including patient's high risk of falls, clotting risk, and recent bleeding which appears to have stopped. Orders were placed for repeat hemoglobin and hematocrit on 04/09/2021 with results to patient's primary care provider. Recommend follow-up with primary care provider within 5 to 7 days of discharge, sooner if needed. Recommend repeat CBC, CMP, and magnesium in follow-up. Recommend follow-up with orthopedics as scheduled. Patient is full weightbearing as tolerated. All home medications were continued at discharge. He was prescribed Tylenol and Hixson 5/325 mg as needed for pain with the directions to take Hixson for moderate pain and Tylenol for lesser pain. He was also prescribed scheduled 100 mg twice daily Colace for constipation and as needed milk of magnesia for constipation. He was given 81 mg twice daily aspirin which should continue for 34 days on discharge. Patient was on room air. Discharged to [facility] today. - Patient Instructions Diet: Diabetic Diet Activity: Apply Ice, As Tolerated, Elevate Extremity, Full Weight Bearing Driving: Do Not Drive Showering/Bathing: May Shower Wound/Incision Care: Keep Operative Site/Wound Site Clean and Dry, Do NOT Change Dressing Notify Provider of: Fever, Increased Pain, Swelling and Redness, Drainage, Nausea and/or Vomiting Other/Special Instructions: Please have help with mobility. You may place as much weight through the limb as tolerated. Increase mobility as able. Elevate the limb and apply ice to the areas to decrease swelling. Continue PT/OT at SNF. You were prescribed an 81 mg aspirin twice a day. This is for prevention of blood clots. We did weigh your risk of falls versus your risk of bleeding and blood clots. You were given Tylenol for mild pain and hydrocodone/acetaminophen for more moderate pain. Try to wean off of your hydrocodone/acetaminophen as soon as possible. Hydrocodone/acetaminophen is a narcotic pain medication and this may lead to constipation. Because of this you were given a stool softener/laxative called Colace. Narcotic pain medications can also make you confused and impair your ability to operate machinery or drive a car. Follow-up with primary care provider within 5 to 7 days of discharge, sooner if needed. Orders were placed for repeat hemoglobin check on 04/09/2021, with results to your primary care provider. Should symptoms return or worsen contact primary care provider or return to the emergency room. - Discharge Plan *PRESCRIPTION DRUG MONITORING PROGRAM REVIEWED*: No *COPY OF PRESCRIPTION DRUG MONITORING REPORT IN PATIENT MARISOL: No Prescriptions/Med Rec: Aspirin 81 mg PO BID #68 tab.chew Docusate Sodium [Colace] 100 mg PO BID #20 cap Hydrocodone/Acetaminophen [HYDROcodone-Acetaminophen 5-325 MG] 1 each PO Q6H PRN #12 tab PRN Reason: Pain (Moderate 4-6) Magnesium Hydroxide [Milk of Magnesia] 30 ml PO Q6H PRN #120 ml PRN Reason: Constipation Acetaminophen [Tylenol] 650 mg PO Q4H PRN #30 tablet PRN Reason: Pain (Mild 1-3)/fever Home Medications: Home Meds Amantadine [Symmetrel] 100 mg PO BID 10/28/17 [History] Carbidopa/Levodopa [Carbidopa-Levo ER 50-200] 1 tab PO BEDTIME 10/28/17 [History] Carbidopa/Levodopa [Carbidopa-Levodopa 25-250] 1 tab PO TID 10/28/17 [History] Rotigotine [Neupro .33 MG/Hr] 1 patch TOP DAILY 10/28/17 [History] carBAMazepine [Carbamazepine ER] 100 mg PO BID 10/28/17 [History] carBAMazepine [Carbamazepine ER] 400 mg PO BID 10/28/17 [History] metFORMIN HCl [Metformin HCl] 1,000 mg PO BID 10/28/17 [History] Losartan [Cozaar] 25 mg PO DAILY 01/13/20 [History] Acetaminophen [Tylenol] 650 mg PO Q4H PRN #30 tablet 04/06/21 [Rx] Aspirin 81 mg PO BID #68 tab.chew 04/06/21 [Rx] Docusate Sodium [Colace] 100 mg PO BID #20 cap 04/06/21 [Rx] Hydrocodone/Acetaminophen [HYDROcodone-Acetaminophen 5-325 MG] 1 each PO Q6H PRN #12 tab 04/06/21 [Rx] Magnesium Hydroxide [Milk of Magnesia] 30 ml PO Q6H PRN #120 ml 04/06/21 [Rx] Oxygen Therapy Mode: Room Air Patient Handouts: Intramedullary Nailing of Hip Fracture, Intramedullary N ailing of Hip Fracture, Care After Forms: ED Department Discharge Referrals: Angel Nicholas MD [Physician] - 04/14/21 12:15 pm (Please arrive 15 minutes prior to the appointment to register, bring insurance cards and photo ID, and if needs help transferring have someone available to assist or stand aid if needed.) Waqas Bolton MD [Primary Care Provider] - (tried to schedule hospital f/u appt, provider had no openings and is making mcc rounds to [facility] on Saturday, and he may elect to see patient there, clinic will contact the mcc with the plan. ) - Discharge Summary/Plan Comment DC Time >30 min.: Yes Total # of Minutes for Discharge Time: 50 - General Info Date of Service: 04/06/21 Admission Dx/Problem (Free Text: Admission Diagnosis/Problem Admission Diagnosis/Problem Hip fracture, intertrochanteric Functional Status: Reports: Pain Controlled, Tolerating Diet, Urinating. Denies: Ambulating (Standing ), New Symptoms - Review of Systems General: Reports: Weakness (slow improvements ). Denies: Fever, Fatigue, Malaise, Chills HEENT: Reports: No Symptoms. Denies: Headaches, Sore Throat Pulmonary: Reports: No Symptoms. Denies: Shortness of Breath, Cough, Sputum, Wheezing Cardiovascular: Reports: No Symptoms. Denies: Chest Pain, Palpitations, Dyspnea on Exertion, Edema, Lightheadedness Gastrointestinal: Reports: Other (Had large bowel movement yesterday evening). Denies: Abdominal Pain, Constipation, Diarrhea, Nausea Genitourinary: Reports: No Symptoms. Denies: Pain Musculoskeletal: Reports: Leg Pain (Right leg with movement) Skin: Reports: No Symptoms. Denies: Cyanosis Neurological: Reports: Confusion, Pre-Existing Deficit (Baseline Parkinson's), Tremors, Difficulty Walking, Weakness, Gait Disturbance. Denies: Dizziness, Headache, Numbness, Seizure, Syncope, Tingling Psychiatric: Reports: No Symptoms - Patient Data Vitals - Most Recent: Last Vital Signs Temp 98.2 F 04/06/21 07:47 Pulse 67 04/06/21 07:47 Resp 20 04/06/21 07:47 BP 132/64 04/06/21 09:15 Pulse Ox 95 04/06/21 07:47 Weight - Most Recent: 181 lb 1.6 oz I&O - Last 24 hours: Intake & Output 04/05/21 04/06/21 04/06/21 22:59 06:59 14:59 Intake Total 370 540 Output Total 200 352 Balance 170 -352 540 Lab Results - Last 24 hrs: Laboratory Results - last 24 hr 04/05/21 04/05/21 04/05/21 Range/Units 12:04 14:00 17:44 WBC (4.23-9.07) K/mm3 RBC (4.63-6.08) M/mm3 Hgb 8.4 L D (13.7-17.5) gm/dl Hct 26.3 L (40.1-51.0) % MCV (79.0-92.2) fl MCH (25.7-32.2) pg MCHC (32.2-35.5) g/dl RDW Std Deviation (35.1-43.9) fL Plt Count (163-337) K/mm3 MPV (9.4-12.3) fl Neut % (Auto) (34.0-67.9) % Lymph % (Auto) (21.8-53.1) % [place] % (Auto) (5.3-12.2) % Eos % (Auto) (0.8-7.0) Baso % (Auto) (0.1-1.2) % Neut # (Auto) (1.78-5.38) K/mm3 Lymph # (Auto) (1.32-3.57) K/mm3 [place] # (Auto) (0.30-0.82) K/mm3 Eos # (Auto) (0.04-0.54) K/mm3 Baso # (Auto) (0.01-0.08) K/mm3 Sodium (136-145) mEq/L Potassium (3.5-5.1) mEq/L Chloride (98-107) mEq/L Carbon Dioxide (21-32) mEq/L Anion Gap (5-15) BUN (7-18) mg/dL Creatinine (0.7-1.3) mg/dL Est Cr Clr Drug Dosing mL/min Estimated GFR (MDRD) (>60) mL/min BUN/Creatinine Ratio (14-18) Glucose (70-99) mg/dL POC Glucose 128 H 116 H (70-99) mg/dL Calcium (8.5-10.1) mg/dL Magnesium (1.8-2.4) mg/dL Total Bilirubin (0.2-1.0) mg/dL AST (15-37) U/L ALT (16-63) U/L Alkaline Phosphatase (46-116) U/L Total Protein (6.4-8.2) g/dl Albumin (3.4-5.0) g/dl Globulin gm/dL Albumin/Globulin Ratio (1-2) SARS-CoV-2 RNA (MELISSA) (NEGATIVE) 04/05/21 04/06/21 04/06/21 Range/Units 22:07 00:20 05:15 WBC 4.88 (4.23-9.07) K/mm3 RBC 2.72 L (4.63-6.08) M/mm3 Hgb 9.2 L 8.9 L (13.7-17.5) gm/dl Hct 28.6 L 27.8 L (40.1-51.0) % MCV 102.2 H D (79.0-92.2) fl MCH 32.7 H (25.7-32.2) pg MCHC 32.0 L (32.2-35.5) g/dl RDW Std Deviation 51.5 H (35.1-43.9) fL Plt Count 143 L (163-337) K/mm3 MPV 10.1 (9.4-12.3) fl Neut % (Auto) 69.1 H (34.0-67.9) % Lymph % (Auto) 15.8 L (21.8-53.1) % [place] % (Auto) 9.8 (5.3-12.2) % Eos % (Auto) 3.7 (0.8-7.0) Baso % (Auto) 0.4 (0.1-1.2) % Neut # (Auto) 3.37 (1.78-5.38) K/mm3 Lymph # (Auto) 0.77 L (1.32-3.57) K/mm3 [place] # (Auto) 0.48 (0.30-0.82) K/mm3 Eos # (Auto) 0.18 (0.04-0.54) K/mm3 Baso # (Auto) 0.02 (0.01-0.08) K/mm3 Sodium (136-145) mEq/L Potassium (3.5-5.1) mEq/L Chloride (98-107) mEq/L Carbon Dioxide (21-32) mEq/L Anion Gap (5-15) BUN (7-18) mg/dL Creatinine (0.7-1.3) mg/dL Est Cr Clr Drug Dosing mL/min Estimated GFR (MDRD) (>60) mL/min BUN/Creatinine Ratio (14-18) Glucose (70-99) mg/dL POC Glucose 103 H (70-99) mg/dL Calcium (8.5-10.1) mg/dL Magnesium (1.8-2.4) mg/dL Total Bilirubin (0.2-1.0) mg/dL AST (15-37) U/L ALT (16-63) U/L Alkaline Phosphatase (46-116) U/L Total Protein (6.4-8.2) g/dl Albumin (3.4-5.0) g/dl Globulin gm/dL Albumin/Globulin Ratio (1-2) SARS-CoV-2 RNA (MELISSA) (NEGATIVE) 04/06/21 04/06/21 04/06/21 Range/Units 05:15 07:30 10:28 WBC (4.23-9.07) K/mm3 RBC (4.63-6.08) M/mm3 Hgb (13.7-17.5) gm/dl Hct (40.1-51.0) % MCV (79.0-92.2) fl MCH (25.7-32.2) pg MCHC (32.2-35.5) g/dl RDW Std Deviation (35.1-43.9) fL Plt Count (163-337) K/mm3 MPV (9.4-12.3) fl Neut % (Auto) (34.0-67.9) % Lymph % (Auto) (21.8-53.1) % [place] % (Auto) (5.3-12.2) % Eos % (Auto) (0.8-7.0) Baso % (Auto) (0.1-1.2) % Neut # (Auto) (1.78-5.38) K/mm3 Lymph # (Auto) (1.32-3.57) K/mm3 [place] # (Auto) (0.30-0.82) K/mm3 Eos # (Auto) (0.04-0.54) K/mm3 Baso # (Auto) (0.01-0.08) K/mm3 Sodium 138 (136-145) mEq/L Potassium 4.8 (3.5-5.1) mEq/L Chloride 102 (98-107) mEq/L Carbon Dioxide 29 (21-32) mEq/L Anion Gap 11.8 (5-15) BUN 33 H (7-18) mg/dL Creatinine 1.5 H (0.7-1.3) mg/dL Est Cr Clr Drug Dosing 41.23 mL/min Estimated GFR (MDRD) 45 (>60) mL/min BUN/Creatinine Ratio 22.0 H (14-18) Glucose 114 H (70-99) mg/dL POC Glucose 101 H (70-99) mg/dL Calcium 8.4 L (8.5-10.1) mg/dL Magnesium 1.8 (1.8-2.4) mg/dL Total Bilirubin 0.3 (0.2-1.0) mg/dL AST 18 (15-37) U/L ALT 6 L (16-63) U/L Alkaline Phosphatase 57 (46-116) U/L Total Protein 6.4 (6.4-8.2) g/dl Albumin 2.5 L (3.4-5.0) g/dl Globulin 3.9 gm/dL Albumin/Globulin Ratio 0.6 L (1-2) SARS-CoV-2 RNA (MELISSA) Negative (NEGATIVE) 04/06/21 Range/Units 11:07 WBC (4.23-9.07) K/mm3 RBC (4.63-6.08) M/mm3 Hgb (13.7-17.5) gm/dl Hct (40.1-51.0) % MCV (79.0-92.2) fl MCH (25.7-32.2) pg MCHC (32.2-35.5) g/dl RDW Std Deviation (35.1-43.9) fL Plt Count (163-337) K/mm3 MPV (9.4-12.3) fl Neut % (Auto) (34.0-67.9) % Lymph % (Auto) (21.8-53.1) % [place] % (Auto) (5.3-12.2) % Eos % (Auto) (0.8-7.0) Baso % (Auto) (0.1-1.2) % Neut # (Auto) (1.78-5.38) K/mm3 Lymph # (Auto) (1.32-3.57) K/mm3 [place] # (Auto) (0.30-0.82) K/mm3 Eos # (Auto) (0.04-0.54) K/mm3 Baso # (Auto) (0.01-0.08) K/mm3 Sodium (136-145) mEq/L Potassium (3.5-5.1) mEq/L Chloride (98-107) mEq/L Carbon Dioxide (21-32) mEq/L Anion Gap (5-15) BUN (7-18) mg/dL Creatinine (0.7-1.3) mg/dL Est Cr Clr Drug Dosing mL/min Estimated GFR (MDRD) (>60) mL/min BUN/Creatinine Ratio (14-18) Glucose (70-99) mg/dL POC Glucose 127 H (70-99) mg/dL Calcium (8.5-10.1) mg/dL Magnesium (1.8-2.4) mg/dL Total Bilirubin (0.2-1.0) mg/dL AST (15-37) U/L ALT (16-63) U/L Alkaline Phosphatase (46-116) U/L Total Protein (6.4-8.2) g/dl Albumin (3.4-5.0) g/dl Globulin gm/dL Albumin/Globulin Ratio (1-2) SARS-CoV-2 RNA (MELISSA) (NEGATIVE) DILIP Results - Last 24 hrs: Microbiology 04/05/21 19:54 Stool Occult Blood (DILIP) - Final Stool / Feces Med Orders - Current: Current Medications Acetaminophen (Acetaminophen 325 Mg Tab) 650 mg PO Q4H PRN PRN Reason: Pain (Mild 1-3)/fever Last Admin: 04/06/21 09:12 Dose: 650 mg Documented by: Hydrocodone Bitart/Acetaminophen (Acetaminophen/Hydrocodone 325-5 Mg Tab) 1 tab PO Q4H PRN PRN Reason: Pain (moderate 4-6) Last Admin: 04/06/21 10:20 Dose: 1 tab Documented by: Amantadine HCl (Amantadine 100 Mg Cap Own Med) 100 mg PO BID@0800,1700 [facility] Last Admin: 04/06/21 07:37 Dose: 100 mg Documented by: Docusate Sodium (Docusate Sodium 100 Mg Cap) 100 mg PO BID [facility] Last Admin: 04/06/21 09:15 Dose: Not Given Documented by: Hydromorphone HCl (Hydromorphone 0.5 Mg/0.5 Ml Syringe) 0.5 mg IVPUSH Q2H PRN PRN Reason: Pain (severe 7-10) Last Admin: 04/03/21 19:21 Dose: 0.5 mg Documented by: Lactated Ringer's (Ringers, Lactated) 1,000 mls @ 100 mls/hr IV ASDIRECTED [facility] Insulin Human Lispro (Insulin Lispro 100 Unit/Ml 10 Ml Vial) 0 unit SUBCUT QIDACANDBED [facility]; Protocol Last Admin: 04/06/21 11:33 Dose: Not Given Documented by: Losartan Potassium (Losartan 25 Mg Tab Own Med) 25 mg PO DAILY@0800 [facility] Last Admin: 04/06/21 09:15 Dose: 25 mg Documented by: Magnesium Hydroxide (Magnesium Hydroxide 400 Mg/5 Ml Susp 30 Ml Cup) 30 ml PO Q6H PRN PRN Reason: Constipation Last Admin: 04/05/21 17:44 Dose: 30 ml Documented by: Carbamazepine Xr 100 (Mg Tab Own Med) 100 mg PO BID@0800,1700 [facility] Last Admin: 04/06/21 07:34 Dose: 100 mg Documented by: Carbidopa/Levodopa 25-250mg Tab Own Med 1 tab PO TID@0700,1300,1900 [facility] Last Admin: 04/06/21 07:34 Dose: 1 tab Documented by: Carbamazepine Er 400 (Mg Tab Own Med) 400 mg PO BID@0800,1700 [facility] Last Admin: 04/06/21 07:34 Dose: 400 mg Documented by: Ondansetron HCl (Ondansetron 4 Mg/2 Ml Sdv) 4 mg IV Q6H PRN PRN Reason: Nausea/Vomiting Rotigotine [Neupro . (33 Mg/Hr] 8 Mg Patch) 0 each TOP DAILY [facility] Last Admin: 04/06/21 10:19 Dose: 1 each Documented by: Carbidopa/Levodopa Er 50-200 Mg Tab Own Med 1 each PO BEDTIME [facility] Last Admin: 04/05/21 22:09 Dose: 1 each Documented by: Metformin 1000mg Tab (Own Med) 1 each PO BIDMEALS [facility] Last Admin: 04/06/21 07:34 Dose: 1 each Documented by: Discontinued Medications Amantadine HCl (Amantadine 100 Mg Cap) 100 mg PO BID [facility] Last Admin: 04/01/21 22:16 Dose: 100 mg Documented by: Amantadine HCl (Amantadine 100 Mg Cap) 100 mg PO BID@0800,1700 [facility] Last Admin: 04/02/21 17:49 Dose: 100 mg Documented by: Aspirin (Aspirin 325 Mg Tab.Ec) 325 mg PO DAILY [facility] Stop: 05/08/21 09:01 Last Admin: 04/04/21 10:57 Dose: 325 mg Documented by: Bupivacaine HCl (Bupivacaine 0.25% 10 Ml Sdv) Confirm Administered Dose 30 ml .ROUTE .STK-MED ONE Stop: 04/03/21 11:18 Last Admin: 04/03/21 13:35 Dose: 10 ml Documented by: Carbidopa/Levodopa (Carbidopa/Levodopa 25-100 Mg Tab.Er) 2 tab PO BEDTIME [facility] Cefazolin Sodium (Cefazolin 1 Gm Vial) Confirm Administered Dose 2 gm .ROUTE .STK-MED ONE Stop: 04/03/21 10:26 Docusate Sodium (Docusate Sodium 100 Mg Cap) 100 mg PO Q12H PRN PRN Reason: Constipation Last Admin: 04/04/21 06:55 Dose: 100 mg Documented by: Enoxaparin Sodium (Enoxaparin 40 Mg/0.4 Ml Syringe) 40 mg SUBCUT DAILY [facility] Last Admin: 04/04/21 10:56 Dose: Not Given Documented by: Fentanyl (Fentanyl 100 Mcg/2 Ml Sdv) 50 mcg IVPUSH Q5M PRN PRN Reason: Pain Stop: 04/03/21 18:00 Hydromorphone HCl (Hydromorphone 1 Mg/Ml Syringe) 1 mg IVPUSH ONETIME ONE Stop: 03/31/21 22:33 Last Admin: 03/31/21 23:03 Dose: 1 mg Documented by: Hydromorphone HCl (Hydromorphone 1 Mg/Ml Syringe) 1 mg IVPUSH ONETIME ONE Stop: 04/01/21 07:22 Last Admin: 04/01/21 07:37 Dose: 1 mg Documented by: Hydromorphone HCl (Hydromorphone 0.5 Mg/0.5 Ml Syringe) 0.5 mg IVPUSH Q10M PRN PRN Reason: Pain (severe 7-10) Stop: 04/03/21 16:00 Lactated Ringer's (Ringers, Lactated) 1,000 mls @ 75 mls/hr IV ASDIRECTED [facility] Last Admin: 04/04/21 02:53 Dose: 75 mls/hr Documented by: Magnesium Sulfate 2 gm/ Premix 50 mls @ 25 mls/hr IV ONETIME ONE Stop: 04/02/21 09:40 Last Admin: 04/02/21 08:44 Dose: 25 mls/hr Documented by: Lidocaine HCl (Xylocaine-Mpf 1%) Confirm Administered Dose 4 mls @ as directed .ROUTE .STK-MED ONE Stop: 04/03/21 10:26 Lactated Ringer's (Ringers, Lactated) Confirm Administered Dose 1,000 mls @ as directed .ROUTE .STK-MED ONE Stop: 04/03/21 12:03 Cefazolin Sodium/Dextrose 2 gm (/ Premix) 50 mls @ 100 mls/hr IV Q8H [facility] Stop: 04/04/21 10:59 Last Admin: 04/04/21 11:27 Dose: 100 mls/hr Documented by: Lactated Ringer's (Ringers, Lactated) 500 mls @ 999 mls/hr IV .BOLUS ONE Stop: 04/04/21 08:27 Last Admin: 04/04/21 09:37 Dose: 999 mls/hr Documented by: Lactated Ringer's (Ringers, Lactated) 1,000 mls @ 60 mls/hr IV ASDIRECTED [facility] Stop: 04/05/21 02:39 Last Admin: 04/04/21 10:56 Dose: 60 mls/hr Documented by: Sodium Chloride (Normal Saline) 500 mls @ 100 mls/hr IV BOLUS ONE Stop: 04/05/21 11:47 Last Admin: 04/05/21 07:25 Dose: 100 mls/hr Documented by: Losartan Potassium (Losartan 25 Mg Tab) 25 mg PO DAILY [facility] Losartan Potassium (Losartan 25 Mg Tab) 25 mg PO DAILY@0800 [facility] Last Admin: 04/02/21 07:49 Dose: 25 mg Documented by: Metformin HCl (Metformin 500 Mg Tab) 1,000 mg PO BIDMEALS [facility] Last Admin: 04/02/21 17:46 Dose: 1,000 mg Documented by: Miscellaneous Medication (Phenylephrine Hcl In 0.9% Nacl 1 Mg/10 Ml Syringe) Confirm Administered Dose 1 mg .ROUTE .STK-MED ONE Stop: 04/03/21 12:31 Carbamazepine Xr 100 (Mg Tab Own Med) 100 mg PO BID [facility] Carbamazepine Er 400 (Mg Tab Own Med) 400 mg PO BID [facility] Carbidopa/Levodopa 25-250mg Tab Own Med 1 tab PO TID [facility] Ondansetron HCl (Ondansetron 4 Mg/2 Ml Sdv) Confirm Administered Dose 4 mg .ROUTE .STK-MED ONE Stop: 04/03/21 12:02 Ondansetron HCl (Ondansetron 4 Mg/2 Ml Sdv) 4 mg IVPUSH ONETIME PRN PRN Reason: Nausea/Vomiting Stop: 04/03/21 18:00 Oxycodone HCl (Oxycodone 5 Mg Tab) 5 mg PO Q4H PRN PRN Reason: Pain (moderate 4-6) Last Admin: 04/04/21 08:17 Dose: 5 mg Documented by: Propofol (Propofol 200 Mg/20 Ml Sdv) Confirm Administered Dose 200 mg .ROUTE .STK-MED ONE Stop: 04/03/21 10:26 Propofol (Propofol 200 Mg/20 Ml Sdv) Confirm Administered Dose 200 mg .ROUTE .STK-MED ONE Stop: 04/03/21 10:27 - Exam Quality Assessment: Reports: DVT Prophylaxis. Denies: Supplemental Oxygen, Urine Catheter General: Reports: Alert, Oriented (Mostly), Cooperative, No Acute Distress HEENT: Reports: Pupils Equal, Pupils Reactive, Mucous Membr. Moist/[place] Neck: Reports: Supple, Trachea Midline Lungs: Reports: Clear to Auscultation, Normal Respiratory Effort Cardiovascular: Reports: Regular Rate, Regular Rhythm GI/Abdominal Exam: Normal Bowel Sounds, Soft, Non-Tender, No Distention (Male) Exam: Other (Scattered bruising throughout scrotum and penis) Rectal (Males) Exam: Deferred Back Exam: Reports: Normal Inspection, Decreased Range of Motion Extremities: No Pedal Edema, Leg Pain, Limited Range of Motion, Other (Scattered bruising throughout right extremity) Skin: Reports: Warm, Dry, Intact Neurological: Reports: No New Focal Deficit Psy/Mental Status: Reports: Alert, Normal Affect, Normal Mood
[2021-04-06] MEDS ORDERED: FLU Vacc QS2021(65UP)/MF59C/PF 60 MCG/0.5 ML Syringe IM ONE (12:30)
--- NOTE | 2021-04-06 12:43 | PCM.SURGPN ---
- General Info Date of Service: 04/06/21 POD#: 3 Functional Status: Reports: Pain Controlled, Tolerating Diet, Ambulating, Urinating, Other (The pt reports his pain is controlled.) - Patient Data Vitals - Most Recent: Last Vital Signs Temp 97.9 F 04/06/21 12:00 Pulse 67 04/06/21 12:00 Resp 16 04/06/21 12:00 BP 122/67 04/06/21 12:00 Pulse Ox 97 04/06/21 12:00 Weight - Most Recent: 181 lb 1.6 oz I&O - Last 24 Hours: Intake & Output 04/05/21 04/06/21 04/06/21 22:59 06:59 14:59 Intake Total 370 540 Output Total 200 352 Balance 170 -352 540 Lab Results Last 24 Hrs: Laboratory Results - last 24 hr 04/05/21 04/05/21 04/05/21 Range/Units 12:04 14:00 17:44 WBC (4.23-9.07) K/mm3 RBC (4.63-6.08) M/mm3 Hgb 8.4 L D (13.7-17.5) gm/dl Hct 26.3 L (40.1-51.0) % MCV (79.0-92.2) fl MCH (25.7-32.2) pg MCHC (32.2-35.5) g/dl RDW Std Deviation (35.1-43.9) fL Plt Count (163-337) K/mm3 MPV (9.4-12.3) fl Neut % (Auto) (34.0-67.9) % Lymph % (Auto) (21.8-53.1) % Coffey % (Auto) (5.3-12.2) % Eos % (Auto) (0.8-7.0) Baso % (Auto) (0.1-1.2) % Neut # (Auto) (1.78-5.38) K/mm3 Lymph # (Auto) (1.32-3.57) K/mm3 Coffey # (Auto) (0.30-0.82) K/mm3 Eos # (Auto) (0.04-0.54) K/mm3 Baso # (Auto) (0.01-0.08) K/mm3 Sodium (136-145) mEq/L Potassium (3.5-5.1) mEq/L Chloride (98-107) mEq/L Carbon Dioxide (21-32) mEq/L Anion Gap (5-15) BUN (7-18) mg/dL Creatinine (0.7-1.3) mg/dL Est Cr Clr Drug Dosing mL/min Estimated GFR (MDRD) (>60) mL/min BUN/Creatinine Ratio (14-18) Glucose (70-99) mg/dL POC Glucose 128 H 116 H (70-99) mg/dL Calcium (8.5-10.1) mg/dL Magnesium (1.8-2.4) mg/dL Total Bilirubin (0.2-1.0) mg/dL AST (15-37) U/L ALT (16-63) U/L Alkaline Phosphatase (46-116) U/L Total Protein (6.4-8.2) g/dl Albumin (3.4-5.0) g/dl Globulin gm/dL Albumin/Globulin Ratio (1-2) SARS-CoV-2 RNA (MELISSA) (NEGATIVE) 04/05/21 04/06/21 04/06/21 Range/Units 22:07 00:20 05:15 WBC 4.88 (4.23-9.07) K/mm3 RBC 2.72 L (4.63-6.08) M/mm3 Hgb 9.2 L 8.9 L (13.7-17.5) gm/dl Hct 28.6 L 27.8 L (40.1-51.0) % MCV 102.2 H D (79.0-92.2) fl MCH 32.7 H (25.7-32.2) pg MCHC 32.0 L (32.2-35.5) g/dl RDW Std Deviation 51.5 H (35.1-43.9) fL Plt Count 143 L (163-337) K/mm3 MPV 10.1 (9.4-12.3) fl Neut % (Auto) 69.1 H (34.0-67.9) % Lymph % (Auto) 15.8 L (21.8-53.1) % Coffey % (Auto) 9.8 (5.3-12.2) % Eos % (Auto) 3.7 (0.8-7.0) Baso % (Auto) 0.4 (0.1-1.2) % Neut # (Auto) 3.37 (1.78-5.38) K/mm3 Lymph # (Auto) 0.77 L (1.32-3.57) K/mm3 Coffey # (Auto) 0.48 (0.30-0.82) K/mm3 Eos # (Auto) 0.18 (0.04-0.54) K/mm3 Baso # (Auto) 0.02 (0.01-0.08) K/mm3 Sodium (136-145) mEq/L Potassium (3.5-5.1) mEq/L Chloride (98-107) mEq/L Carbon Dioxide (21-32) mEq/L Anion Gap (5-15) BUN (7-18) mg/dL Creatinine (0.7-1.3) mg/dL Est Cr Clr Drug Dosing mL/min Estimated GFR (MDRD) (>60) mL/min BUN/Creatinine Ratio (14-18) Glucose (70-99) mg/dL POC Glucose 103 H (70-99) mg/dL Calcium (8.5-10.1) mg/dL Magnesium (1.8-2.4) mg/dL Total Bilirubin (0.2-1.0) mg/dL AST (15-37) U/L ALT (16-63) U/L Alkaline Phosphatase (46-116) U/L Total Protein (6.4-8.2) g/dl Albumin (3.4-5.0) g/dl Globulin gm/dL Albumin/Globulin Ratio (1-2) SARS-CoV-2 RNA (MELISSA) (NEGATIVE) 04/06/21 04/06/21 04/06/21 Range/Units 05:15 07:30 10:28 WBC (4.23-9.07) K/mm3 RBC (4.63-6.08) M/mm3 Hgb (13.7-17.5) gm/dl Hct (40.1-51.0) % MCV (79.0-92.2) fl MCH (25.7-32.2) pg MCHC (32.2-35.5) g/dl RDW Std Deviation (35.1-43.9) fL Plt Count (163-337) K/mm3 MPV (9.4-12.3) fl Neut % (Auto) (34.0-67.9) % Lymph % (Auto) (21.8-53.1) % Coffey % (Auto) (5.3-12.2) % Eos % (Auto) (0.8-7.0) Baso % (Auto) (0.1-1.2) % Neut # (Auto) (1.78-5.38) K/mm3 Lymph # (Auto) (1.32-3.57) K/mm3 Coffey # (Auto) (0.30-0.82) K/mm3 Eos # (Auto) (0.04-0.54) K/mm3 Baso # (Auto) (0.01-0.08) K/mm3 Sodium 138 (136-145) mEq/L Potassium 4.8 (3.5-5.1) mEq/L Chloride 102 (98-107) mEq/L Carbon Dioxide 29 (21-32) mEq/L Anion Gap 11.8 (5-15) BUN 33 H (7-18) mg/dL Creatinine 1.5 H (0.7-1.3) mg/dL Est Cr Clr Drug Dosing 41.23 mL/min Estimated GFR (MDRD) 45 (>60) mL/min BUN/Creatinine Ratio 22.0 H (14-18) Glucose 114 H (70-99) mg/dL POC Glucose 101 H (70-99) mg/dL Calcium 8.4 L (8.5-10.1) mg/dL Magnesium 1.8 (1.8-2.4) mg/dL Total Bilirubin 0.3 (0.2-1.0) mg/dL AST 18 (15-37) U/L ALT 6 L (16-63) U/L Alkaline Phosphatase 57 (46-116) U/L Total Protein 6.4 (6.4-8.2) g/dl Albumin 2.5 L (3.4-5.0) g/dl Globulin 3.9 gm/dL Albumin/Globulin Ratio 0.6 L (1-2) SARS-CoV-2 RNA (MELISSA) Negative (NEGATIVE) 04/06/21 Range/Units 11:07 WBC (4.23-9.07) K/mm3 RBC (4.63-6.08) M/mm3 Hgb (13.7-17.5) gm/dl Hct (40.1-51.0) % MCV (79.0-92.2) fl MCH (25.7-32.2) pg MCHC (32.2-35.5) g/dl RDW Std Deviation (35.1-43.9) fL Plt Count (163-337) K/mm3 MPV (9.4-12.3) fl Neut % (Auto) (34.0-67.9) % Lymph % (Auto) (21.8-53.1) % Coffey % (Auto) (5.3-12.2) % Eos % (Auto) (0.8-7.0) Baso % (Auto) (0.1-1.2) % Neut # (Auto) (1.78-5.38) K/mm3 Lymph # (Auto) (1.32-3.57) K/mm3 [place]offey # (Auto) (0.30-0.82) K/mm3 Eos # (Auto) (0.04-0.54) K/mm3 Baso # (Auto) (0.01-0.08) K/mm3 Sodium (136-145) mEq/L Potassium (3.5-5.1) mEq/L Chloride (98-107) mEq/L Carbon Dioxide (21-32) mEq/L Anion Gap (5-15) BUN (7-18) mg/dL Creatinine (0.7-1.3) mg/dL Est Cr Clr Drug Dosing mL/min Estimated GFR (MDRD) (>60) mL/min BUN/Creatinine Ratio (14-18) Glucose (70-99) mg/dL POC Glucose 127 H (70-99) mg/dL Calcium (8.5-10.1) mg/dL Magnesium (1.8-2.4) mg/dL Total Bilirubin (0.2-1.0) mg/dL AST (15-37) U/L ALT (16-63) U/L Alkaline Phosphatase (46-116) U/L Total Protein (6.4-8.2) g/dl Albumin (3.4-5.0) g/dl Globulin gm/dL Albumin/Globulin Ratio (1-2) SARS-CoV-2 RNA (MELISSA) (NEGATIVE) Donte Results Last 24 Hrs: Microbiology 04/05/21 19:54 Stool Occult Blood (DONTE) - Final Stool / Feces Med Orders - Current: Current Medications Acetaminophen (Acetaminophen 325 Mg Tab) 650 mg PO Q4H PRN PRN Reason: Pain (Mild 1-3)/fever Last Admin: 04/06/21 09:12 Dose: 650 mg Documented by: Hydrocodone Bitart/Acetaminophen (Acetaminophen/Hydrocodone 325-5 Mg Tab) 1 tab PO Q4H PRN PRN Reason: Pain (moderate 4-6) Last Admin: 04/06/21 10:20 Dose: 1 tab Documented by: Amantadine HCl (Amantadine 100 Mg Cap Own Med) 100 mg PO BID@0800,1700 [facility] Last Admin: 04/06/21 07:37 Dose: 100 mg Documented by: Docusate Sodium (Docusate Sodium 100 Mg Cap) 100 mg PO BID [facility] Last Admin: 04/06/21 09:15 Dose: Not Given Documented by: Hydromorphone HCl (Hydromorphone 0.5 Mg/0.5 Ml Syringe) 0.5 mg IVPUSH Q2H PRN PRN Reason: Pain (severe 7-10) Last Admin: 04/03/21 19:21 Dose: 0.5 mg Documented by: Lactated Ringer's (Ringers, Lactated) 1,000 mls @ 100 mls/hr IV ASDIRECTED [facility] Insulin Human Lispro (Insulin Lispro 100 Unit/Ml 10 Ml Vial) 0 unit SUBCUT QIDACANDBED [facility]; Protocol Last Admin: 04/06/21 11:33 Dose: Not Given Documented by: Losartan Potassium (Losartan 25 Mg Tab Own Med) 25 mg PO DAILY@0800 [facility] Last Admin: 04/06/21 09:15 Dose: 25 mg Documented by: Magnesium Hydroxide (Magnesium Hydroxide 400 Mg/5 Ml Susp 30 Ml Cup) 30 ml PO Q6H PRN PRN Reason: Constipation Last Admin: 04/05/21 17:44 Dose: 30 ml Documented by: Carbamazepine Xr 100 (Mg Tab Own Med) 100 mg PO BID@0800,1700 [facility] Last Admin: 04/06/21 07:34 Dose: 100 mg Documented by: Carbidopa/Levodopa 25-250mg Tab Own Med 1 tab PO TID@0700,1300,1900 [facility] Last Admin: 04/06/21 07:34 Dose: 1 tab Documented by: Carbamazepine Er 400 (Mg Tab Own Med) 400 mg PO BID@0800,1700 [facility] Last Admin: 04/06/21 07:34 Dose: 400 mg Documented by: Ondansetron HCl (Ondansetron 4 Mg/2 Ml Sdv) 4 mg IV Q6H PRN PRN Reason: Nausea/Vomiting Rotigotine [Neupro . (33 Mg/Hr] 8 Mg Patch) 0 each TOP DAILY [facility] Last Admin: 04/06/21 10:19 Dose: 1 each Documented by: Carbidopa/Levodopa Er 50-200 Mg Tab Own Med 1 each PO BEDTIME [facility] Last Admin: 04/05/21 22:09 Dose: 1 each Documented by: Metformin 1000mg Tab (Own Med) 1 each PO BIDMEALS [facility] Last Admin: 04/06/21 07:34 Dose: 1 each Documented by: Discontinued Medications Amantadine HCl (Amantadine 100 Mg Cap) 100 mg PO BID [facility] Last Admin: 04/01/21 22:16 Dose: 100 mg Documented by: Amantadine HCl (Amantadine 100 Mg Cap) 100 mg PO BID@0800,1700 [facility] Last Admin: 04/02/21 17:49 Dose: 100 mg Documented by: Aspirin (Aspirin 325 Mg Tab.Ec) 325 mg PO DAILY [facility] Stop: 05/08/21 09:01 Last Admin: 04/04/21 10:57 Dose: 325 mg Documented by: Bupivacaine HCl (Bupivacaine 0.25% 10 Ml Sdv) Confirm Administered Dose 30 ml .ROUTE .STK-MED ONE Stop: 04/03/21 11:18 Last Admin: 04/03/21 13:35 Dose: 10 ml Documented by: Carbidopa/Levodopa (Carbidopa/Levodopa 25-100 Mg Tab.Er) 2 tab PO BEDTIME [facility] Cefazolin Sodium (Cefazolin 1 Gm Vial) Confirm Administered Dose 2 gm .ROUTE .STK-MED ONE Stop: 04/03/21 10:26 Docusate Sodium (Docusate Sodium 100 Mg Cap) 100 mg PO Q12H PRN PRN Reason: Constipation Last Admin: 04/04/21 06:55 Dose: 100 mg Documented by: Enoxaparin Sodium (Enoxaparin 40 Mg/0.4 Ml Syringe) 40 mg SUBCUT DAILY [facility] Last Admin: 04/04/21 10:56 Dose: Not Given Documented by: Fentanyl (Fentanyl 100 Mcg/2 Ml Sdv) 50 mcg IVPUSH Q5M PRN PRN Reason: Pain Stop: 04/03/21 18:00 Hydromorphone HCl (Hydromorphone 1 Mg/Ml Syringe) 1 mg IVPUSH ONETIME ONE Stop: 03/31/21 22:33 Last Admin: 03/31/21 23:03 Dose: 1 mg Documented by: Hydromorphone HCl (Hydromorphone 1 Mg/Ml Syringe) 1 mg IVPUSH ONETIME ONE Stop: 04/01/21 07:22 Last Admin: 04/01/21 07:37 Dose: 1 mg Documented by: Hydromorphone HCl (Hydromorphone 0.5 Mg/0.5 Ml Syringe) 0.5 mg IVPUSH Q10M PRN PRN Reason: Pain (severe 7-10) Stop: 04/03/21 16:00 Lactated Ringer's (Ringers, Lactated) 1,000 mls @ 75 mls/hr IV ASDIRECTED [facility] Last Admin: 04/04/21 02:53 Dose: 75 mls/hr Documented by: Magnesium Sulfate 2 gm/ Premix 50 mls @ 25 mls/hr IV ONETIME ONE Stop: 04/02/21 09:40 Last Admin: 04/02/21 08:44 Dose: 25 mls/hr Documented by: Lidocaine HCl (Xylocaine-Mpf 1%) Confirm Administered Dose 4 mls @ as directed .ROUTE .STK-MED ONE Stop: 04/03/21 10:26 Lactated Ringer's (Ringers, Lactated) Confirm Administered Dose 1,000 mls @ as directed .ROUTE .STK-MED ONE Stop: 04/03/21 12:03 Cefazolin Sodium/Dextrose 2 gm (/ Premix) 50 mls @ 100 mls/hr IV Q8H [facility] Stop: 04/04/21 10:59 Last Admin: 04/04/21 11:27 Dose: 100 mls/hr Documented by: Lactated Ringer's (Ringers, Lactated) 500 mls @ 999 mls/hr IV .BOLUS ONE Stop: 04/04/21 08:27 Last Admin: 04/04/21 09:37 Dose: 999 mls/hr Documented by: Lactated Ringer's (Ringers, Lactated) 1,000 mls @ 60 mls/hr IV ASDIRECTED [facility] Stop: 04/05/21 02:39 Last Admin: 04/04/21 10:56 Dose: 60 mls/hr Documented by: Sodium Chloride (Normal Saline) 500 mls @ 100 mls/hr IV BOLUS ONE Stop: 04/05/21 11:47 Last Admin: 04/05/21 07:25 Dose: 100 mls/hr Documented by: Influenza Virus Vaccine (Flu Vacc Gk0044(65up)/Mf59c/Pf 60 Mcg/0.5 Ml Syringe) 60 mcg IM .ONCE ONE Stop: 04/06/21 12:31 Last Admin: 04/06/21 12:35 Dose: 60 mcg Documented by: Losartan Potassium (Losartan 25 Mg Tab) 25 mg PO DAILY [facility] Losartan Potassium (Losartan 25 Mg Tab) 25 mg PO DAILY@0800 [facility] Last Admin: 04/02/21 07:49 Dose: 25 mg Documented by: Metformin HCl (Metformin 500 Mg Tab) 1,000 mg PO BIDNDALS [facility] Last Admin: 04/02/21 17:46 Dose: 1,000 mg Documented by: Miscellaneous Medication (Phenylephrine Hcl In 0.9% Nacl 1 Mg/10 Ml Syringe) Confirm Administered Dose 1 mg .ROUTE .STK-MED ONE Stop: 04/03/21 12:31 Carbamazepine Xr 100 (Mg Tab Own Med) 100 mg PO BID [facility] Carbamazepine Er 400 (Mg Tab Own Med) 400 mg PO BID [facility] Carbidopa/Levodopa 25-250mg Tab Own Med 1 tab PO TID [facility] Ondansetron HCl (Ondansetron 4 Mg/2 Ml Sdv) Confirm Administered Dose 4 mg .ROUTE .STK-MED ONE Stop: 04/03/21 12:02 Ondansetron HCl (Ondansetron 4 Mg/2 Ml Sdv) 4 mg IVPUSH ONETIME PRN PRN Reason: Nausea/Vomiting Stop: 04/03/21 18:00 Oxycodone HCl (Oxycodone 5 Mg Tab) 5 mg PO Q4H PRN PRN Reason: Pain (moderate 4-6) Last Admin: 04/04/21 08:17 Dose: 5 mg Documented by: Propofol (Propofol 200 Mg/20 Ml Sdv) Confirm Administered Dose 200 mg .ROUTE .STK-MED ONE Stop: 04/03/21 10:26 Propofol (Propofol 200 Mg/20 Ml Sdv) Confirm Administered Dose 200 mg .ROUTE .STK-MED ONE Stop: 04/03/21 10:27 - Exam Wound/Incisions: Dressing Dry and Intact, Other (Lateral mid-thigh incision uncovered and without evidence of infection. No active bleeding, drainage noted at incision sites.) General: Alert, Cooperative, No Acute Distress Lungs: Normal Respiratory Effort Extremities: Other (Pt was able to sense touch at RLE. Lubna's negative. Right thigh soft, non-tender. Eccymosis at gisel-area noted.) Sepsis Event Note - Evaluation Sepsis Screening Result: No Definite Risk - Focused Exam Vital Signs: Vital Signs Temp Pulse Resp BP Pulse Ox 04/06/21 12:00 97.9 F 67 16 122/67 97 04/06/21 09:15 132/64 04/06/21 07:47 98.2 F 67 20 132/64 95 04/06/21 04:36 98.4 F 80 16 130/68 93 L 04/06/21 01:06 98.1 F 81 16 125/64 93 L - Problem List Review Problem List Initiated/Reviewed/Updated: Yes - My Orders Last 24 Hours: Active Orders 24 hr Category Date Time Status Ready for Discharge [RC] PER UNIT ROUTINE Care 04/06/21 11:49 Active Vaccine to be Administered/Admin Charge [RC] ASDIRECTED Care 04/06/21 12:05 Active CBC WITH AUTO DIFF [HEME] AM Lab 04/07/21 05:11 Ordered MAGNESIUM [CHEM] AM Lab 04/07/21 05:11 Ordered Docusate Sodium [Colace] Med 04/05/21 21:00 Active 100 mg PO BID Magnesium Hydroxide [Milk of Magnesia] Med 04/05/21 14:41 Active 30 ml PO Q6H PRN Medication Orders Acetaminophen (Acetaminophen 325 Mg Tab) 650 mg PO Q4H PRN PRN Reason: Pain (Mild 1-3)/fever Last Admin: 04/06/21 09:12 Dose: 650 mg Documented by: Admin: 04/04/21 22:31 Dose: 650 mg Documented by: Admin: 04/04/21 06:54 Dose: 650 mg Documented by: Admin: 04/04/21 02:35 Dose: 650 mg Documented by: Admin: 04/03/21 22:30 Dose: 650 mg Documented by: Admin: 04/03/21 11:19 Dose: 650 mg Documented by: Admin: 04/03/21 03:35 Dose: 650 mg Documented by: GOVIND Hydrocodone Bitart/Acetaminophen (Acetaminophen/Hydrocodone 325-5 Mg Tab) 1 tab PO Q4H PRN PRN Reason: Pain (moderate 4-6) Last Admin: 04/06/21 10:20 Dose: 1 tab Documented by: Admin: 04/06/21 04:31 Dose: 1 tab Documented by: Admin: 04/05/21 22:10 Dose: 1 tab Documented by: Admin: 04/05/21 18:10 Dose: 1 tab Documented by: Admin: 04/05/21 10:28 Dose: 1 tab Documented by: Admin: 04/04/21 22:55 Dose: 1 tab Documented by: Admin: 04/04/21 14:04 Dose: 1 tab Documented by: ABDI Amantadine HCl (Amantadine 100 Mg Cap Own Med) 100 mg PO BID@0800,1700 [facility] Last Admin: 04/06/21 07:37 Dose: 100 mg Documented by: Admin: 04/05/21 17:35 Dose: 100 mg Documented by: Admin: 04/05/21 07:53 Dose: 100 mg Documented by: Admin: 04/04/21 17:48 Dose: 100 mg Documented by: Admin: 04/04/21 08:00 Dose: 100 mg Documented by: Admin: 04/03/21 17:19 Dose: 100 mg Documented by: Admin: 04/03/21 09:31 Dose: Not Given Documented by: ABDI Docusate Sodium (Docusate Sodium 100 Mg Cap) 100 mg PO BID [facility] Last Admin: 04/06/21 09:15 Dose: Not Given Documented by: Admin: 04/05/21 22:10 Dose: Not Given Documented by: BERTA Hydromorphone HCl (Hydromorphone 0.5 Mg/0.5 Ml Syringe) 0.5 mg IVPUSH Q2H PRN PRN Reason: Pain (severe 7-10) Last Admin: 04/03/21 19:21 Dose: 0.5 mg Documented by: Admin: 04/03/21 16:33 Dose: 0.5 mg Documented by: LAINE Lactated Ringer's (Ringers, Lactated) 1,000 mls @ 100 mls/hr IV ASDIRECTED [facility] Insulin Human Lispro (Insulin Lispro 100 Unit/Ml 10 Ml Vial) 0 unit SUBCUT QIDACANDBED [facility]; Protocol Last Admin: 04/06/21 11:33 Dose: Not Given Documented by: Admin: 04/06/21 07:33 Dose: Not Given Documented by: Admin: 04/05/21 22:09 Dose: Not Given Documented by: Admin: 04/05/21 17:46 Dose: Not Given Documented by: Admin: 04/05/21 12:05 Dose: Not Given Documented by: Admin: 04/05/21 07:55 Dose: Not Given Documented by: Admin: 04/05/21 00:14 Dose: Not Given Documented by: Admin: 04/04/21 17:58 Dose: 2 units Documented by: Admin: 04/04/21 14:07 Dose: Not Given Documented by: Admin: 04/04/21 08:08 Dose: Not Given Documented by: Admin: 04/03/21 22:30 Dose: Not Given Documented by: Admin: 04/03/21 22:29 Dose: 2 units Documented by: Admin: 04/03/21 17:03 Dose: Not Given Documented by: Admin: 04/03/21 06:40 Dose: Not Given Documented by: Admin: 04/02/21 22:19 Dose: Not Given Documented by: Admin: 04/02/21 17:48 Dose: Not Given Documented by: Admin: 04/02/21 16:30 Dose: Not Given Documented by: Admin: 04/02/21 08:04 Dose: Not Given Documented by: Admin: 04/01/21 22:01 Dose: Not Given Documented by: SHELLEY Losartan Potassium (Losartan 25 Mg Tab Own Med) 25 mg PO DAILY@0800 [facility] Last Admin: 04/06/21 09:15 Dose: 25 mg Documented by: Admin: 04/05/21 10:35 Dose: Not Given Documented by: Admin: 04/04/21 08:00 Dose: 25 mg Documented by: Admin: 04/03/21 08:18 Dose: Not Given Documented by: ABDI Magnesium Hydroxide (Magnesium Hydroxide 400 Mg/5 Ml Susp 30 Ml Cup) 30 ml PO Q6H PRN PRN Reason: Constipation Last Admin: 04/05/21 17:44 Dose: 30 ml Documented by: MIRELLA Carbamazepine Xr 100 (Mg Tab Own Med) 100 mg PO BID@0800,1700 [facility] Last Admin: 04/06/21 07:34 Dose: 100 mg Documented by: Admin: 04/05/21 17:34 Dose: 100 mg Documented by: Admin: 04/05/21 07:53 Dose: 100 mg Documented by: Admin: 04/04/21 17:48 Dose: 100 mg Documented by: Admin: 04/04/21 08:00 Dose: 100 mg Documented by: Admin: 04/03/21 17:20 Dose: 100 mg Documented by: Admin: 04/03/21 08:17 Dose: Not Given Documented by: Admin: 04/02/21 20:28 Dose: 100 mg Documented by: Admin: 04/02/21 08:02 Dose: 100 mg Documented by: NATACHA Carbidopa/Levodopa 25-250mg Tab Own Med 1 tab PO TID@0700,1300,1900 [facility] Last Admin: 04/06/21 07:34 Dose: 1 tab Documented by: Admin: 04/05/21 19:45 Dose: 1 tab Documented by: Admin: 04/05/21 13:57 Dose: 1 tab Documented by: Admin: 04/05/21 07:50 Dose: 1 tab Documented by: Admin: 04/04/21 19:56 Dose: 1 tab Documented by: Admin: 04/04/21 14:00 Dose: 1 tab Documented by: Admin: 04/04/21 06:57 Dose: 1 tab Documented by: [id number] Admin: 04/03/21 18:45 Dose: 1 tab Documented by: Admin: 04/03/21 15:30 Dose: Not Given Documented by: Admin: 04/03/21 06:34 Dose: 1 tab Documented by: Admin: 04/02/21 20:29 Dose: 1 tab Documented by: Admin: 04/02/21 13:29 Dose: 1 tab Documented by: Admin: 04/02/21 07:48 Dose: 1 tab Documented by: NATACHA Carbamazepine Er 400 (Mg Tab Own Med) 400 mg PO BID@0800,1700 [facility] Last Admin: 04/06/21 07:34 Dose: 400 mg Documented by: Admin: 04/05/21 17:34 Dose: 400 mg Documented by: Admin: 04/05/21 07:53 Dose: 400 mg Documented by: Admin: 04/04/21 17:49 Dose: 400 mg Documented by: Admin: 04/04/21 08:00 Dose: 400 mg Documented by: Admin: 04/03/21 17:20 Dose: 400 mg Documented by: Admin: 04/03/21 08:17 Dose: Not Given Documented by: Admin: 04/02/21 20:28 Dose: 400 mg Documented by: Admin: 04/02/21 08:01 Dose: 400 mg Documented by: NATACHA Ondansetron HCl (Ondansetron 4 Mg/2 Ml Sdv) 4 mg IV Q6H PRN PRN Reason: Nausea/Vomiting Rotigotine [Neupro . (33 Mg/Hr] 8 Mg Patch) 0 each TOP DAILY [facility] Last Admin: 04/06/21 10:19 Dose: 1 each Documented by: Admin: 04/05/21 10:34 Dose: 1 each Documented by: Admin: 04/04/21 08:00 Dose: 1 each Documented by: Admin: 04/03/21 11:19 Dose: Not Given Documented by: ABDI Carbidopa/Levodopa Er 50-200 Mg Tab Own Med 1 each PO BEDTIME [facility] Last Admin: 04/05/21 22:09 Dose: 1 each Documented by: Admin: 04/04/21 22:19 Dose: 1 each Documented by: Admin: 04/03/21 22:11 Dose: 1 each Documented by: Admin: 04/02/21 22:07 Dose: 1 each Documented by: Admin: 04/01/21 22:15 Dose: 1 each Documented by: SHELLEY Metformin 1000mg Tab (Own Med) 1 each PO BIDMEALS [facility] Last Admin: 04/06/21 07:34 Dose: 1 each Documented by: Admin: 04/05/21 17:35 Dose: 1 each Documented by: Admin: 04/05/21 07:47 Dose: 1 each Documented by: Admin: 04/04/21 17:48 Dose: 1 each Documented by: Admin: 04/04/21 08:00 Dose: 1 each Documented by: Admin: 04/03/21 17:20 Dose: 1 each Documented by: Admin: 04/03/21 06:41 Dose: Not Given Documented by: GOVIND - Assessment Assessment (Free Text/Narrative):: POD#3 - s/p right cephalomedullary nail placement for right hip fracture - Plan Plan (Free Text/Narrative):: 1. Medical management per Hospitalist service. 2. Nursing will place a dressing at the uncovered incision. 3. Likely d/c to [facility] today for continued therapy. 4. Discussed VTE prophylaxis with Hospitalist service The pt's case was discussed with Dr. Nicholas.
--- NOTE | 2021-04-11 18:23 | PCM.OPNOTE ---
- General Post-Op/Procedure Note Date of Surgery/Procedure: 04/06/21 Operative Procedure(s): cephallomedullary nailing of right intertrochanteric hip fracture Pre Op Diagnosis: right intertrochanteric hip fracture Post-Op Diagnosis: Same Anesthesia Technique: Local, MAC, Spinal Primary Surgeon: Angel Nicholas Anesthesia Provider: Priyanka Crocker [employer] Vice President: Wilma Mccain EBL in mLs: 40 Complications: None Condition: Good
--- NOTE | 2021-04-23 14:14 | OR ---
DATE OF OPERATION: 04/06/2021 SURGEON: Angel Nicholas MD OPERATION PERFORMED: Cephalomedullary nailing of right intertrochanteric hip fracture. PREOPERATIVE DIAGNOSIS: Right intertrochanteric hip fracture. POSTOPERATIVE DIAGNOSIS: Right intertrochanteric hip fracture. ANESTHESIA: Local MAC with spinal. ANESTHESIA PROVIDER: Priyanka Crocker. HOSPITAL RECRUITER: Wilma Mccain PA-C ESTIMATED BLOOD LOSS: 40 mL. COMPLICATIONS: None. CONDITION: Stable. DESCRIPTION OF PROCEDURE: The patient was identified in the preoperative holding area. Proper site was marked and identified by the surgeon. The patient was taken back to the operative theater, where after adequate anesthesia, the patient was placed on the traction table. PEG was placed. All bony prominences were well padded. The patient's bilateral lower extremities were placed in a traction boot. Left lower extremity was placed in a dependent position with no traction applied. Right lower extremity had gross traction applied. A time-out was performed. Reduction of the fracture was then undertaken. It was anatomically reduced in AP and lateral views. Right hip was then sterilely prepped and draped in the usual sterile fashion. OR time-out was performed. The patient received 2 g IV Ancef. A standard superior incision just to the greater trochanter was undertaken. The guide pin was placed and the tip of the greater trochanter was found to be in proper position on AP and lateral views. Opening reamer was then utilized. Ball-tipped guidewire was placed down to the knee and a 13 reamer was then utilized for reaming for the long cephalomedullary nail. At this time, the length was measured and a Popejoy long gamma nail was then opened on the back table. This was then impacted into place. Ball-tipped guidewire was removed. The guide pin was then placed up into the head and neck for the lag screw. This was measured. Step reamer was utilized. It was found to be in adequate position on AP and lateral views. There was a slight extension deformity, so I did make a small poke hole incision anteriorly and did blunt dissection and used a picador to correct this deformity. The lag screw was then placed and was found to be in adequate position with less than 25 mm tip-apex distance. Two distal interlock screws were then placed in usual standard fashion. One of the screws did strip and I could not remove it, but it was only a few millimeters proud, so it was left. At this time, adequate saline was irrigated through all wounds. 0 Vicryl was used for closure of the gluteal fascia. 2-0 Vicryl was used subcutaneously, and lizbeth were used for skin closure. The patient had a sterile soft dressing applied and was sent to the PACU in stable condition. MMODAL /[id number]
== END 2021-04-06 13:00 | DRG 481 ==
LOC: JD.ED 21:48 → JD.MS 04-01 11:15 → JD.OB 04-01 16:08 → JD.MS 04-04 16:04 → JD.OB 04-04 16:08 → JD.MS 04-06 12:55 → UNDODISIN 04-06 13:00
PROVIDERS: ADMIT Physician Assistant; ATTEND Family Medicine
PROC: 0QS636Z Reposition Right Upper Femur with Intramedullary Internal Fixation Device, Percutaneous Approach (ICD-10-PCS; principal; 2021-04-06)
DX: S72.144A Nondisplaced intertrochanteric fracture of right femur, initial encounter for closed fracture (principal); N17.9 Acute kidney failure, unspecified; W01.0XXA Fall on same level from slipping, tripping and stumbling without subsequent striking against object, initial encounter; I10 Essential (primary) hypertension; G20 Parkinson's disease; E11.9 Type 2 diabetes mellitus without complications; H54.7 Unspecified visual loss; D64.9 Anemia, unspecified; Z79.899 Other long term (current) drug therapy; Z79.84 Long term (current) use of oral hypoglycemic drugs; Z85.828 Personal history of other malignant neoplasm of skin; Z98.49 Cataract extraction status, unspecified eye; Z90.89 Acquired absence of other organs; Z90.49 Acquired absence of other specified parts of digestive tract; Z87.891 Personal history of nicotine dependence
CPT/HCPCS: 01230; 36415; 36430; 73502-26-RT; 73502-RT; 74176; 74176-26; 76000; 76000-26; 80048; 80053; 82272; 82947; 83036; 83735; 84100; 85007; 85014; 85018; 85025; 85027; 86850; 86900; 86901; 86922; 87804; 90694; 93005; 94760; 94761; 96374; 96376; 97110-GP; 97162-GP; 97530-GP; 99100; 99285-25; A9270-GY; C1713; G0008; J0690; J1170; J1650; J1815-GY; J2370; J2405; J2704; J3475; J3490; J7030; J7120; P9016; U0002